=== PATIENT | male | born 1960 | race Caucasian/White ===

== ENCOUNTER 2019-06-04 06:00 | Outpatient (RCR) | payer BC, SELFPAY | END 2019-06-23 00:01 | LOC: ONCMED 06:00 | PROVIDERS: Family Provider Family Medicine; Visit Provider Internal Medicine Medical Oncology | DX: C34.11 Malignant neoplasm of upper lobe, right bronchus or lung (principal); C79.51 Secondary malignant neoplasm of bone; J44.9 Chronic obstructive pulmonary disease, unspecified; E78.5 Hyperlipidemia, unspecified; Z79.899 Other long term (current) drug therapy ==

== ENCOUNTER 2019-07-06 05:58 | Outpatient (RCR) | payer BC, SELFPAY | END 2019-07-24 23:59 | disposition home or self-care (01) | LOC: ONCMED 05:58 | PROVIDERS: Family Provider Family Medicine; Visit Provider Internal Medicine Medical Oncology | DX: Z76.89 Persons encountering health services in other specified circumstances (principal) ==

== ENCOUNTER 2019-08-06 06:08 | Outpatient (RCR) | payer BC, SELFPAY | END 2019-08-22 23:59 | disposition home or self-care (01) | LOC: ONCMED 06:08 | PROVIDERS: Family Provider Family Medicine; Visit Provider Internal Medicine Medical Oncology | DX: Z45.2 Encounter for adjustment and management of vascular access device (principal) | CPT/HCPCS: 96523 ==

== ENCOUNTER 2019-09-21 06:37 | Outpatient (RCR) | payer BC, SELFPAY ==
[2019-09-21] MEDS: denosumab 120 mg SDV SUBCUT (14:25)
--- NOTE | 2019-09-25 08:11 | ONC FU_ITS ---
Dr. Castle Patient Follow-Up Note Patient: Gabriel Yanez Unit #: [id number]: [id number] Dicatated By: Gil Castle M.D.Date of Visit:Sep 21, 2019 Onc Med Follow-up/Prog Note Chief Complaint: Lung cancer. 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 His disease was stage IA (T1a, N), M0) at initial diagnosis in 2012, but with subsequent progression to stage IV ( M1b). He had presented with a spontaneous pneumothorax and a right upper lobe nodule in 2012. On 02/28/2013 because of persistent air leak he required VATS with a bi-segmentectomy of the right upper lobe, resection of right upper lobe ruptured bleb, and pleurodesis. No thoracic lymphadenectomy was performed. His surgical pathology showed a 1.5 cm minimally invasive adenocarcinoma with negative margins. Clinically there was no distant or regional metastatic disease reported. Thus, his disease was stage IA (T1a, N0, M0), and he was followed expectantly. His surveillance CT of the chest on 09/01/2014 showed post operative changes in the right upper lobe with stable area of nodular thickening and scarring. He was first seen by Dr. Perez on 01/10/2015. His restaging CT of the chest on 03/22/2015 was unchanged. Further restaging CT on 09/06/2015 showed scarring, but no evidence of metastatic disease. He continued on observation/expectant management. He has underlying COPD and dyslipidemia. He stopped smoking in the . In the last 2-3 years he had chronic shortness of breath, oxygen dependence at night. He had screening colonoscopy on 04/17/2012. The only finding was a hyperplastic polyp. INTERIM HISTORY: His surveillance CT scans as of March 2017 showed no evidence of recurrence. The latter study did show increased nodular thickening within the posterior right lateral pleura which was noted to be mildly increased from previous studies, measuring up to 9.[address] on 10/02/2017 showed pronounced volume loss on the right side with pleural thickening and scarring. There was noted to be a small focus of trapped lung low on the right side. There was essentially no change compared to the March [address] study[address] chest [address] on 04/08/2018 showed pleural-based density in the posterior upper right chest measuring 20 x 11 mm compared to 8 x 12 mm on the study from September 2017. A pleural-based density in the medial mid right chest increased to 17 x 16 mm compared to 8 x 9 mm on the previous study. A pleural-based density on the medial lower right chest also appeared more prominent. The findings were felt to be suspicious for pleural-based metastatic disease. He had further evaluation with restaging PET/CT on 04/28/2018. There was noted to be pronounced activity throughout the right hemithorax, felt to be associated with inflammation in the pleura related to the pleurodesis or VATS. It was noted to have calcifications associated with it. A 2 cm diameter pleural based lesion was thought to possibly represent early tumor involvement. An abnormality in a left anterior rib was felt to be suspicious for rib fracture. A focus involving a posterior rib on the right side was thought be consistent with early bone metastasis or inflammation or fracture. There were lesions noted in the pelvic bone and right femur which were felt to be consistent with metastatic bone lesions. MRI of the brain on 05/06/2018 showed rather pronounced deep white matter disease felt to possibly represent a demyelinating process versus pronounced small vessel ischemic changes. It did not appear to be due to metastatic disease. Bone scan on 05/08/2018 showed multiple areas of abnormal uptake involving the left hemipelvis, right femur, multiple ribs, thoracic spine, and likely a small focus in the cervical spine. On 05/22/[address] directed needle biopsy of the lesion in the left ilium. Pathology was consistent with metastatic adenocarcinoma. The tumor cells were positive for CK7, TTF-1, and Napsin A. He was seen for a follow-up visit on 05/29/2018. At that point he did appear to be having significant bone pain associated with the metastatic involvement. As it did include weightbearing areas, I opted to refer him for palliative radiation. In the meantime, I also requested additional pathologic studies, including a PD-L1 immunostain, which showed low PD-L1 expression at 5%. In addition, the tumor cells were tested and found to be negative for EGFR mutations and for the ALK and ROS1 gene rearrangements. He was seen here on 07/02/2018 to initiate chemotherapy with pembrolizumab in combination with carboplatin and pemetrexed. He had multiple new complaints including low-grade fever, increased shortness of breath, and new pain and swelling in both legs. He was found to have extensive deep vein thrombosis in both legs and very extensive pulmonary emboli bilaterally. He began anticoagulation with Lovenox, and he was observed overnight in the hospital. He then returned on 07/08/2018 to begin cycle 1 of carboplatin/pemetrexed in combination with pembrolizumab. He also started denosumab injections for the metastatic bone involvement. He tolerated the chemotherapy well, and he was able to continue with cycle 2 of carboplatin/Alimta/pembrolizumab on 07/29/2018. During that time his anticoagulation was transitioned to a apixaban. He continued to tolerate the chemotherapy with acceptable toxicity. He proceeded with cycle 3 on 08/19/2018 and was cycle 4 on 09/08/2018. On 09/19/2018 he was admitted to [facility] with shortness of breath and hypoxia. His clinical evaluation was consistent with pneumonitis associated with his immunotherapy. He was given high-dose steroid therapy. His clinical course was complicated by left pneumothorax with persistent air leak. He was eventually discharged home on 10/08/2018 with the chest tube in place. He is on 30 mg of prednisone daily. Just prior to discharge, he also was found to have Clostridium difficile colitis, for which he began treatment with oral vancomycin. During follow-up he continued to have severe shortness of breath and limited activity tolerance. He attempted to remove his chest to begin last week, but it had to be reinserted within a couple of hours. His restaging CT scans on 11/13/2018 showed no evidence of recurrent pulmonary embolus. There was a persistent small residual filling defect in the posterior basal segment right lower lobe pulmonary artery branch. There was improvement in the previously noted right upper, middle, and lower lobe pneumonia compared to the 08/27/2018 study. There was evidence of left hemithorax talc pleurodesis and placement of lower third left hemithorax anterior pleural space pigtail catheter. A right hilar lymph node appears stable. There is no evidence of other significant lymphadenopathy. A T5 vertebral body metastatic lesion appeared stable. The abdomen and pelvis shows stable appearance of a mixed density metastatic lesion in the left ilium. There was subcutaneous soft tissue edema noted in the left flank. There were no other significant findings. I had seen him for a follow-up visit on 11/13/2018. He was showing some improvement in his clinical status. At that point he continued monthly denosumab injections for the metastatic bone involvement, but in the absence of any evidence of disease progression, I opted to keep his chemotherapy on hold. In the meantime, he continued follow-up with Dr. Orlando and he was started on diuretic therapy for cor pulmonale. He continued to have a high oxygen requirement. Restaging CT scans from 06/02/2019 showed continued pleural scarring and thickening with volume loss on the right side. There was also pronounced pleural scarring and thickening involving the left lung, and there was thickening of the soft tissues between the ribs and the tip of the scapula on the left side that appeared very worrisome for tumor involvement in the soft tissues. There was pronounced soft tissue thickening and abnormal enhancement of the tissue extending along the left lateral chest wall, possibly related to the previous procedures. Metastatic disease, though, was not excluded. There appear to be a couple of small cysts in the liver. There was some inhomogeneity involving the right finger and the left iliac wing, appearance of which was not significantly changed from the previous PET/CT. With those findings, he continued denosumab injections for the metastatic bone involvement, but he otherwise continued observation/symptomatic management for the lung cancer. Restaging PET/CT on 09/09/2019 showed pronounced increased activity in the pleural spaces of both hemithoraces, unclear as to whether it was due post therapeutic changes or to new spread of tumor. A focus of activity in the rectum was noted to be fairly intense, but unchanged compared to the February study. The bony metastases were noted to have markedly improved. He is seen for a scheduled visit. He has been feeling pretty good. He has limited activity tolerance, but he is able to do some light work. ECOG score is 1. His appetite is good. He has not had fever. He has some night sweating. His breathing has been OK on oxygen. He has a little bit of cough every day. He has not been having chest pain. He has no GI or complaints. He has been having pain in his shoulders. He has not been having back or hip pain. He has no headache or dizziness. He has no focal neurologic symptoms. Medications: Calcium 600/Vitamin D3 1 Tablet (of 600-800 mg - Units) Oral b.i.d., Citalopram Hydrobromide 1 Tablet (of 20 mg) Oral daily, Clindamycin HCl 1 Capsule (of 150 mg) Oral four times a day for 10 days, Desmopressin Acetate 1 spray(s) (of 1.5 mg/mL) Solution Nasal b.i.d., Lasix 1 Tablet (of 40 mg) Oral daily PRN, LORazepam 0.5 - 1 Tablet (of 1 mg) Oral t.i.d. PRN, Lovenox 120 mg (of 300 mg/3ml) Injection daily, Morphine Sulfate 1 Tablet (of 15 mg) Oral q 2 hours PRN, Morphine Sulfate ER 1 Tablet (of 15 mg) Tablet, controlled release Oral q 12 hours, oxygen 3 L Aerosol at bedtime, Potassium 1 (99 mg) Tablet Oral PRN, Prochlorperazine Maleate 1 Tablet (of 10 mg) Oral q 4 hours PRN, Rosuvastatin Calcium 1 (10 mg) Tablet Oral daily, Thermotabs 1 Tablet Oral b.i.d. Allergies: No Known Allergies. Review of Systems: Constitutional - His energy level is better. His appetite is good and weight is stable. No fever or chills. He has some night sweating. ECOG score is 1, ENMT - He has a little sinus drainage. His gums have been a little sore. No sore throat or difficulty swallowing, Hematologic/Lymphatic - No abnormal bruising or bleeding, Respiratory - His breathing has been OK on oxygen. He has a little bit of cough. No pleuritic pain or hemoptysis, Cardiovascular - No angina pain. No palpitations, Gastrointestinal - No nausea or vomiting. No heartburn or acid reflux. No diarrhea or constipation. No blood in the stool or black stools, Genitourinary (M) - No dysuria or hematuria. No urinary frequency. No urgency or incontinence, Musculoskeletal - He is having pain in his shoulders, Integumentary - No skin complications, Neurologic - No headache or dizziness. No numbness/paresthesias or other focal neurologic symptoms, Psychiatric - No anxiety or depression. No insomnia. Vital Signs: Performed on Sep 21, 2019 13:25 Height - 71.00 in Weight - 190.2 lbs (HIGH) BSA - 2.06 sq.m BMI - 26.53 Temperature - 97.6 F (LOW) Pulse - 64 /min Respiration - 18 /min BP - 131/73 mm(hg) O2 Sat - 100 % Pain - 0 Physical Examination: Constitutional - He appears somewhat weak generally, Eyes - Sclerae nonicteric. Conjunctivae clear, ENMT - No lesions noted in the oral cavity, Hematologic/Lymphatic - No cervical, clavicular, or axillary adenopathy, Respiratory - Lungs show slgihtly coarse breath sounds. There is pretty good air movement bilaterally, Cardiovascular - Heart rhythm is regular. There is no murmur, gallop, or rub noted, Abdomen - Soft. Liver and spleen are not enlarged. There is no abdominal mass or ascites noted and there is no inguinal adenopathy, Genitalia/Groin/Buttock (M) - Rectal exam shows no mass or other abnormality, Extremities - No edema, Integumentary - There is evidence of skin mottling on the trunk and lower extremities, Neurologic - No focal neurologic deficits noted. Lab/Imaging: Test performed on Jun 04, 2019 10:00 Sodium 138 mmol/L Potassium 4.4 mmol/L Chloride 101 mmol/L CO2 27 mmol/L Anion Gap 14.4 BUN 16 mg/dL Creatinine 0.7 mg/dL Cr Clearance (Est) 133.1400 mL/min eGFR 115.8 mL/min Glucose 108 mg/dl Calcium 8.9 mg/dL Protein, Total 5.9 g/dL Albumin 4.6 g/dL Globulin 1.3 gm/dL Bilirubin, Total 0.7 mg/dL ALT (SGPT) 31 U/L AST (SGOT) 25 U/L Alkaline Phosphatase 56 U/L WBC 3.3 10 3/uL RBC 4.43 10 6/uL HGB 13.7 g/dL HCT 41.8 % MCV 94.4 fl MCH 30.9 pg MCHC 32.8 g/dl RDW 11.9 % Platelet Count 201 10 3/cmm MPV 9.4 fl Neutrophils 1.8 10 3/uL Lymphocytes 1.1 10 3/uL Monocytes 0.4 10 3/uL Eosinophils 0.0 10 3/uL Basophils 0.0 10 3/uL Neutrophil % 52.9 % Lymphocyte % 33.8 % Monocyte % 11.5 % Eosinophil % 1.2 % Basophils % 0.3 % Impression: 1. Patient with minimally invasive adenocarcinoma (bronchoalveolar carcinoma) involving the upper lobe of the right lung. His disease was stage IA (T1a, N0, M0) at initial diagnosis in 2012. He had subsequent progression to stage IV disease (M1b) with evidence of recurrence in the right lung and with multiple sites of metastatic bone involvement, including biopsy-proven metastatic adenocarcinoma involving the left ilium. 2. He also has suspected diabetes insipidus. 3. His initial treatment included VATS with a bi-segmentectomy of the right upper lobe. The procedure also included resection of right upper lobe ruptured bleb and pleurodesis. His other medical illnesses include: 4. COPD. 5. Hyperlipidemia. He had significant pain in weightbearing areas associated with his metastatic bone involvement. He initially started on treatment with denosumab, and he was then referred for palliative radiation, which he completed. On further pathologic analysis his tumor was found to be negative for EGFR mutations and for the ALK and ROS 1 gene rearrangements. A PD-L1 immunostain showed low expression at less than 5%. Given those findings, he was then scheduled to begin systemic therapy with carboplatin and pemetrexed chemotherapy in combination with pembrolizumab. He was seen here on 07/02/2018 to begin his 1st cycle of chemotherapy. He had multiple complaints including low-grade fever, increased shortness of breath, and new pain and swelling in both legs. His venous Doppler showed extensive deep vein thrombosis in both legs, and CT pulmonary angiogram showed extensive pulmonary emboli, including involvement of the left main pulmonary artery. He began anticoagulation with Lovenox, and he was able to return to begin chemotherapy and 07/08/2018. He tolerated the treatment without acute toxicity, and he continued with cycle 2 on 07/29/2017. During that time, he also transitioned his anticoagulation to a apixaban and he has continued monthly denosumab injections for the metastatic bone involvement. He continued to tolerate chemotherapy with acceptable toxicity, and he proceeded with cycle 3 on 08/19/2018 and with cycle 4 on 09/08/2018. On 09/19/2018 he was admitted to the hospital with shortness of breath and severe hypoxia. This appeared to be due to pneumonitis from his immunotherapy. He was given high-dose steroid therapy. His clinical course was then complicated by a left pneumothorax with persistent air leak and by Clostridium difficile colitis. During follow-up he has been showing some improvement in his clinical status with treatment for the Clostridium difficile and with the steroid therapy. He still has shortness of breath and very limited activity tolerance. His restaging CT scans show significant improvement in the appearance of the right lung. Initially he had been unable to tolerate removal of the chest tube on the left side, but eventually it was able to be successfully removed. He then continued denosumab injections for the metastatic bone involvement, but his chemotherapy remained on hold. He also continued followup Dr. Orlando, and he was started on diuretic therapy for cor pulmonale. His repeat CT scan in October 2018 did appear to show some evidence of response to the chemotherapy/immunotherapy regimen. During subsequent follow-up there was gradual improvement in his performance status, though he still had limited activity tolerance. There wrere significant residual abnormalities on his followup chest CT, but uncertain to what extent any of that may have reflected active tumor. By clinical evaluation he did not have obvious disease progression. His restaging PET/CT on 09/09/2019 showed significant uptake in the pleura bilaterally, but again with uncertainty as to whether it is due to post therapeutic changes versus disease progression. There was continued focus of uptake in the rectal area. The significance of that finding is uncertain, as he has no associated symptoms and no abnormal findings on rectal exam. His overall clinical status appears stable other than he has some new skin mottling, and I have no idea what may be causing that. Plan: He will be given denosumab 120 mg by subcutaneous injection for the metastatic bone involvement. He will be scheduled for a followup visit in 3 months. In the meantime, I will review the PET/CT with the radiologist. He will have further evaluation as indicated as indicated. Signed By: Gil Castle M.D. <<Signature on File>>
== END 2019-09-22 23:59 | disposition home or self-care (01) ==
LOC: ONCMED 06:37
PROVIDERS: Family Provider Family Medicine; Visit Provider Internal Medicine Medical Oncology
DX: C79.51 Secondary malignant neoplasm of bone (principal); C34.11 Malignant neoplasm of upper lobe, right bronchus or lung; J44.9 Chronic obstructive pulmonary disease, unspecified; E78.5 Hyperlipidemia, unspecified; Z99.81 Dependence on supplemental oxygen; Z79.01 Long term (current) use of anticoagulants; Z79.52 Long term (current) use of systemic steroids; Z79.899 Other long term (current) drug therapy; Z87.891 Personal history of nicotine dependence; Z86.711 Personal history of pulmonary embolism; Z86.718 Personal history of other venous thrombosis and embolism; Z90.2 Acquired absence of lung [part of]
CPT/HCPCS: 96372; 99214; J0897

== ENCOUNTER 2019-12-22 12:57 | Outpatient (CLI) | payer BC, SELFPAY ==
[2019-12-22] MEDS: denosumab 120 mg SDV SUBCUT (16:21)
--- NOTE | 2019-12-23 07:37 | ONC FU_ITS ---
Dr. Castle Patient Follow-Up Note Patient: Gabriel Yanez Unit #: [id number]: 1960 Dicatated By: Gil Castle M.D.Date of Visit:Dec 22, 2019 Onc Med Follow-up/Prog Note Chief Complaint: Lung cancer. 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 His disease was stage IA (T1a, N), M0) at initial diagnosis in 2012, but with subsequent progression to stage IV ( M1b). He had presented with a spontaneous pneumothorax and a right upper lobe nodule in 2012. On 02/28/2013 because of persistent air leak he required VATS with a bi-segmentectomy of the right upper lobe, resection of right upper lobe ruptured bleb, and pleurodesis. No thoracic lymphadenectomy was performed. His surgical pathology showed a 1.5 cm minimally invasive adenocarcinoma with negative margins. Clinically there was no distant or regional metastatic disease reported. Thus, his disease was stage IA (T1a, N0, M0), and he was followed expectantly. His surveillance CT of the chest on 09/01/2014 showed post operative changes in the right upper lobe with stable area of nodular thickening and scarring. He was first seen by Dr. Perez on 01/10/2015. His restaging CT of the chest on 03/22/2015 was unchanged. Further restaging CT on 09/06/2015 showed scarring, but no evidence of metastatic disease. He continued on observation/expectant management. He has underlying COPD and dyslipidemia. He stopped smoking in the . In the last 2-3 years he had chronic shortness of breath, oxygen dependence at night. He had screening colonoscopy on 04/17/2012. The only finding was a hyperplastic polyp. INTERIM HISTORY: His surveillance CT scans as of March 2017 showed no evidence of recurrence. The latter study did show increased nodular thickening within the posterior right lateral pleura which was noted to be mildly increased from previous studies, measuring up to 9.[address] on 10/02/2017 showed pronounced volume loss on the right side with pleural thickening and scarring. There was noted to be a small focus of trapped lung low on the right side. There was essentially no change compared to the March [address] study[address] on 04/08/2018 showed pleural-based density in the posterior upper right chest measuring 20 x 11 mm compared to 8 x 12 mm on the study from September 2017. A pleural-based density in the medial mid right chest increased to 17 x 16 mm compared to 8 x 9 mm on the previous study. A pleural-based density on the medial lower right chest also appeared more prominent. The findings were felt to be suspicious for pleural-based metastatic disease. He had further evaluation with restaging PET/CT on 04/28/2018. There was noted to be pronounced activity throughout the right hemithorax, felt to be associated with inflammation in the pleura related to the pleurodesis or VATS. It was noted to have calcifications associated with it. A 2 cm diameter pleural based lesion was thought to possibly represent early tumor involvement. An abnormality in a left anterior rib was felt to be suspicious for rib fracture. A focus involving a posterior rib on the right side was thought be consistent with early bone metastasis or inflammation or fracture. There were lesions noted in the pelvic bone and right femur which were felt to be consistent with metastatic bone lesions. MRI of the brain on 05/06/2018 showed rather pronounced deep white matter disease felt to possibly represent a demyelinating process versus pronounced small vessel ischemic changes. It did not appear to be due to metastatic disease. Bone scan on 05/08/2018 showed multiple areas of abnormal uptake involving the left hemipelvis, right femur, multiple ribs, thoracic spine, and likely a small focus in the cervical spine. On 05/22/[address] directed needle biopsy of the lesion in the left ilium. Pathology was consistent with metastatic adenocarcinoma. The tumor cells were positive for CK7, TTF-1, and Napsin A. He was seen for a follow-up visit on 05/29/2018. At that point he did appear to be having significant bone pain associated with the metastatic involvement. As it did include weightbearing areas, I opted to refer him for palliative radiation. In the meantime, I also requested additional pathologic studies, including a PD-L1 immunostain, which showed low PD-L1 expression at 5%. In addition, the tumor cells were tested and found to be negative for EGFR mutations and for the ALK and ROS1 gene rearrangements. He was seen here on 07/02/2018 to initiate chemotherapy with pembrolizumab in combination with carboplatin and pemetrexed. He had multiple new complaints including low-grade fever, increased shortness of breath, and new pain and swelling in both legs. He was found to have extensive deep vein thrombosis in both legs and very extensive pulmonary emboli bilaterally. He began anticoagulation with Lovenox, and he was observed overnight in the hospital. He then returned on 07/08/2018 to begin cycle 1 of carboplatin/pemetrexed in combination with pembrolizumab. He also started denosumab injections for the metastatic bone involvement. He tolerated the chemotherapy well, and he was able to continue with cycle 2 of carboplatin/Alimta/pembrolizumab on 07/29/2018. During that time his anticoagulation was transitioned to a apixaban. He continued to tolerate the chemotherapy with acceptable toxicity. He proceeded with cycle 3 on 08/19/2018 and was cycle 4 on 09/08/2018. On 09/19/2018 he was admitted to [facility] with shortness of breath and hypoxia. His clinical evaluation was consistent with pneumonitis associated with his immunotherapy. He was given high-dose steroid therapy. His clinical course was complicated by left pneumothorax with persistent air leak. He was eventually discharged home on 10/08/2018 with the chest tube in place. He is on 30 mg of prednisone daily. Just prior to discharge, he also was found to have Clostridium difficile colitis, for which he began treatment with oral vancomycin. During follow-up he continued to have severe shortness of breath and limited activity tolerance. He attempted to remove his chest to begin last week, but it had to be reinserted within a couple of hours. His restaging CT scans on 11/13/2018 showed no evidence of recurrent pulmonary embolus. There was a persistent small residual filling defect in the posterior basal segment right lower lobe pulmonary artery branch. There was improvement in the previously noted right upper, middle, and lower lobe pneumonia compared to the 08/27/2018 study. There was evidence of left hemithorax talc pleurodesis and placement of lower third left hemithorax anterior pleural space pigtail catheter. A right hilar lymph node appears stable. There is no evidence of other significant lymphadenopathy. A T5 vertebral body metastatic lesion appeared stable. The abdomen and pelvis shows stable appearance of a mixed density metastatic lesion in the left ilium. There was subcutaneous soft tissue edema noted in the left flank. There were no other significant findings. I had seen him for a follow-up visit on 11/13/2018. He was showing some improvement in his clinical status. At that point he continued monthly denosumab injections for the metastatic bone involvement, but in the absence of any evidence of disease progression, I opted to keep his chemotherapy on hold. In the meantime, he continued follow-up with Dr. Orlando and he was started on diuretic therapy for cor pulmonale. He continued to have a high oxygen requirement. Restaging CT scans from 06/02/2019 showed continued pleural scarring and thickening with volume loss on the right side. There was also pronounced pleural scarring and thickening involving the left lung, and there was thickening of the soft tissues between the ribs and the tip of the scapula on the left side that appeared very worrisome for tumor involvement in the soft tissues. There was pronounced soft tissue thickening and abnormal enhancement of the tissue extending along the left lateral chest wall, possibly related to the previous procedures. Metastatic disease, though, was not excluded. There appear to be a couple of small cysts in the liver. There was some inhomogeneity involving the right finger and the left iliac wing, appearance of which was not significantly changed from the previous PET/CT. With those findings, he continued denosumab injections for the metastatic bone involvement, but he otherwise continued observation/symptomatic management for the lung cancer. Restaging PET/CT on 09/09/2019 showed pronounced increased activity in the pleural spaces of both hemithoraces, unclear as to whether it was due post therapeutic changes or to new spread of tumor. A focus of activity in the rectum was noted to be fairly intense, but unchanged compared to the February study. The bony metastases were noted to have markedly improved. He continued treatment with denosumab at a 3-month interval. A restaging PET/CT on 12/15/2019 showed an area of increased metabolic activity along the left lateral chest wall just inferior to the scapula, very similar in appearance to the prior study. Bilateral talc pleurodesis changes were again noted, also similar to the prior study. A new FDG avid mass was noted within the left lateral limb of the adrenal gland measuring 1.5 cm, SUV 4.9, worrisome for metastatic disease. Also noted was a small lymph node within the aortocaval region in the mid abdomen at the L3 level with mild FDG activity, SUV 4.8, also suspicious for possible metastasis. Robust activity was again noted within the region of the lower rectum. He is seen for a scheduled visit. He has been feeling pretty good generally. He has been more active and able to work around the house, at least for 1/2-day. His ECOG score is 1. He has good appetite, and he has gained weight. He had a slight fever on one occasion. He sometimes has sweating at night. He does have shortness of breath, but his breathing is pretty good on oxygen. He does not complain of cough, and he has not been having chest pain. He has no GI or complaints. Lately has been having some pain in his neck and shoulders, and he also has noticed some restriction in his mobility. He does not complain of headache or dizziness. He occasionally has numbness in his right foot. He has no other focal neurologic symptoms. Medications: Citalopram Hydrobromide 1 Tablet (of 20 mg) Oral daily, Desmopressin Acetate 1 spray(s) (of 1.5 mg/mL) Solution Nasal b.i.d., Lasix 1 Tablet (of 40 mg) Oral daily PRN, Lovenox 120 mg (of 300 mg/3ml) Injection daily, Morphine Sulfate 1 Tablet (of 15 mg) Oral q 2 hours PRN, Morphine Sulfate ER 1 Tablet (of 15 mg) Tablet, controlled release Oral q 12 hours, oxygen 3 L Aerosol at bedtime, Potassium 1 (99 mg) Tablet Oral PRN, Rosuvastatin Calcium 1 (10 mg) Tablet Oral daily Allergies: No Known Allergies. Review of Systems: Constitutional - He has some fatigue. He is able to do work activities for about a half a day. Appetite is good. He has gained weight. He had a slight fever on just one occasion. He sometimes has night sweating. ECOG score is 1, ENMT - No sinus congestion/drainage. No mouth sores. No sore throat or difficulty swallowing, Hematologic/Lymphatic - No abnormal bruising or bleeding, Respiratory - His breathing has been pretty good with oxygen. No cough. No pleuritic pain or hemoptysis, Cardiovascular - No angina pain. No palpitations, Gastrointestinal - No nausea or vomiting. No heartburn or acid reflux. No diarrhea or constipation. No blood in the stool or black stools, Genitourinary (M) - No dysuria or hematuria. No urinary frequency. No urgency or incontinence, Musculoskeletal - He has been having pain in his neck and shoulders, and he has less range of motion, Integumentary - No skin rash, Neurologic - No headache or dizziness. He occasionally has numbness in his right foot. No other focal neurologic symptoms, Psychiatric - No anxiety or depression. No insomnia. Vital Signs: Performed on Dec 22, 2019 13:22 Height - 71.00 in Weight - 189.2 lbs (LOW) BSA - 2.06 sq.m BMI - 26.39 Temperature - 98.4 F Pulse - 63 /min Respiration - 18 /min BP - 129/74 mm(hg) O2 Sat - 100 % Pain - 0 Physical Examination: Constitutional - He looks pretty good generally, Eyes - Sclerae nonicteric. Conjunctivae clear, ENMT - No lesions noted in the oral cavity, Hematologic/Lymphatic - No cervical, clavicular, or axillary adenopathy, Respiratory - Lungs show good air movement with slgihtly coarse breath sounds, Cardiovascular - Heart rhythm is regular. There is no murmur, gallop, or rub noted, Abdomen - Soft. Liver and spleen are not enlarged. There is no abdominal mass or ascites noted and there is no inguinal adenopathy, Extremities - No edema, Integumentary - No skin eruption, Neurologic - No focal neurologic deficits noted. Lab/Imaging: Test performed on Dec 10, 2019 07:24 Glucose 110.0 mg/dL BUN 16.0 mg/dL Creatinine 1.0 mg/dL Cr Clearance (Est) 92.06 mL/min Sodium 136.2 mmol/L Potassium 4.3 mmol/L Chloride 100.1 mmol/L CO2 28.2 mmol/L Calcium 9.6 mg/dL Protein, Total 6.1 g/dL Albumin 4.1 g/dL Bilirubin, Total 1.5 mg/dL Alkaline Phosphatase 54.0 IU/L AST (SGOT) 13.0 IU/L ALT (SGPT) 10.0 IU/L WBC 4.6 10^9/L RBC 4.43 10^12/L HGB 13.7 g/dL HCT 40.5 % MCV 91.5 fl MCH 31.0 pg MCHC 33.9 g/dL RDW 13.0 % Platelet Count 213 10^9/L MPV 7.1 fL Neutrophils (Gran) 3.2 10^9/L Lymphocytes 1.1 10^9/L Monocytes 0.2 10^9/L Manual Lymphocytes 24.3 % Manual Monocytes 5.4 % Impression: 1. Patient with minimally invasive adenocarcinoma (bronchoalveolar carcinoma) involving the upper lobe of the right lung. His disease was stage IA (T1a, N0, M0) at initial diagnosis in 2012. He had subsequent progression to stage IV disease (M1b) with evidence of recurrence in the right lung and with multiple sites of metastatic bone involvement, including biopsy-proven metastatic adenocarcinoma involving the left ilium. 2. He also has suspected diabetes insipidus. 3. His initial treatment included VATS with a bi-segmentectomy of the right upper lobe. The procedure also included resection of right upper lobe ruptured bleb and pleurodesis. His other medical illnesses include: 4. COPD. 5. Hyperlipidemia. He had significant pain in weightbearing areas associated with his metastatic bone involvement. He initially started on treatment with denosumab, and he was then referred for palliative radiation, which he completed. On further pathologic analysis his tumor was found to be negative for EGFR mutations and for the ALK and ROS 1 gene rearrangements. A PD-L1 immunostain showed low expression at less than 5%. Given those findings, he was then scheduled to begin systemic therapy with carboplatin and pemetrexed chemotherapy in combination with pembrolizumab. He was seen here on 07/02/2018 to begin his 1st cycle of chemotherapy. He had multiple complaints including low-grade fever, increased shortness of breath, and new pain and swelling in both legs. His venous Doppler showed extensive deep vein thrombosis in both legs, and CT pulmonary angiogram showed extensive pulmonary emboli, including involvement of the left main pulmonary artery. He began anticoagulation with Lovenox, and he was able to return to begin chemotherapy and 07/08/2018. He tolerated the treatment without acute toxicity, and he continued with cycle 2 on 07/29/2017. During that time, he also transitioned his anticoagulation to a apixaban and he has continued monthly denosumab injections for the metastatic bone involvement. He continued to tolerate chemotherapy with acceptable toxicity, and he proceeded with cycle 3 on 08/19/2018 and with cycle 4 on 09/08/2018. On 09/19/2018 he was admitted to the hospital with shortness of breath and severe hypoxia. This appeared to be due to pneumonitis from his immunotherapy. He was given high-dose steroid therapy. His clinical course was then complicated by a left pneumothorax with persistent air leak and by Clostridium difficile colitis. During follow-up he has been showing some improvement in his clinical status with treatment for the Clostridium difficile and with the steroid therapy. He still has shortness of breath and very limited activity tolerance. His restaging CT scans show significant improvement in the appearance of the right lung. Initially he had been unable to tolerate removal of the chest tube on the left side, but eventually it was able to be successfully removed. He then continued denosumab injections for the metastatic bone involvement, but his chemotherapy remained on hold. He also continued followup Dr. Orladno, and he was started on diuretic therapy for cor pulmonale. His repeat CT scan in October 2018 did appear to show some evidence of response to the chemotherapy/immunotherapy regimen. During subsequent follow-up there was gradual improvement in his performance status, though he still had limited activity tolerance. There were significant residual abnormalities on his followup chest CT, but it was certain as to what extent any of that may have reflected active tumor. By clinical evaluation he did not have obvious disease progression. His restaging PET/CT on 09/09/2019 showed significant uptake in the pleura bilaterally, but again with uncertainty as to whether it was due to post therapeutic changes versus disease progression. There was continued focus of uptake in the rectal area. The significance of that finding also was uncertain, as he had no associated symptoms and no abnormal findings on rectal exam. At his follow-up visit on 09/21/2019 he appeared stable clinically, and he continued treatment with denosumab. He has since then showed further improvement in his clinical status, but his restaging PET/CT on 12/15/2019 showed 2 areas of possible disease progression, including a small left adrenal mass and a small periaortic lymph node, both with mild FDG activity. Activity was again noted in the rectal area, the significance of which remains uncertain. Plan: He will be given denosumab 120 mg by subcutaneous injection for the metastatic bone involvement. I reviewed the PET/CT findings and we discussed the clinical implications. Under the circumstances, I would favor continued observation, as the findings are still equivocal and his further treatment options will be limited. As such, we will plan a follow-up visit with restaging CT scans in 3 months. In the meantime, I think it will be acceptable now to transition his anticoagulation from Lovenox to apixaban. Signed By: Gil Castle M.D. <<Signature on File>>
== END 2019-12-22 12:58 | disposition home or self-care (01) ==
LOC: ONCMED 13:00
PROVIDERS: PCP Family Medicine; Visit Provider Internal Medicine Medical Oncology
DX: C79.51 Secondary malignant neoplasm of bone (principal); C34.11 Malignant neoplasm of upper lobe, right bronchus or lung; E27.9 Disorder of adrenal gland, unspecified; R93.3 Abnormal findings on diagnostic imaging of other parts of digestive tract; R93.89 Abnormal findings on diagnostic imaging of other specified body structures; J44.9 Chronic obstructive pulmonary disease, unspecified; E78.5 Hyperlipidemia, unspecified; Z90.2 Acquired absence of lung [part of]; Z79.899 Other long term (current) drug therapy; Z86.718 Personal history of other venous thrombosis and embolism; Z79.01 Long term (current) use of anticoagulants; Z86.711 Personal history of pulmonary embolism
CPT/HCPCS: 96372; 99214; J0897

== ENCOUNTER 2020-03-04 08:03 | Outpatient (CLI) | payer BC, SELFPAY ==
--- NOTE | 2020-03-05 10:19 | ONC FU_ITS ---
Dr. Castle Patient Follow-Up Note Patient: Gabriel Yanez Unit #: [id number]: [id number] Dicatated By: Gil Castle M.D.Date of Visit:Mar 04, 2020 Onc Med Follow-up/Prog Note Chief Complaint: Lung cancer. 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 His disease was stage IA (T1a, N), M0) at initial diagnosis in 2012, but with subsequent progression to stage IV ( M1b). He had presented with a spontaneous pneumothorax and a right upper lobe nodule in 2012. On 02/28/2013 because of persistent air leak he required VATS with a bi-segmentectomy of the right upper lobe, resection of right upper lobe ruptured bleb, and pleurodesis. No thoracic lymphadenectomy was performed. His surgical pathology showed a 1.5 cm minimally invasive adenocarcinoma with negative margins. Clinically there was no distant or regional metastatic disease reported. Thus, his disease was stage IA (T1a, N0, M0), and he was followed expectantly. His surveillance CT of the chest on 09/01/2014 showed post operative changes in the right upper lobe with stable area of nodular thickening and scarring. He was first seen by Dr. Perez on 01/10/2015. His restaging CT of the chest on 03/22/2015 was unchanged. Further restaging CT on 09/06/2015 showed scarring, but no evidence of metastatic disease. He continued on observation/expectant management. He has underlying COPD and dyslipidemia. He stopped smoking in the . In the last 2-3 years he had chronic shortness of breath, oxygen dependence at night. He had screening colonoscopy on 04/17/2012. The only finding was a hyperplastic polyp. INTERIM HISTORY: His surveillance CT scans as of March 2017 showed no evidence of recurrence. The latter study did show increased nodular thickening within the posterior right lateral pleura which was noted to be mildly increased from previous studies, measuring up to 9.[address] on 10/02/2017 showed pronounced volume loss on the right side with pleural thickening and scarring. There was noted to be a small focus of trapped lung low on the right side. There was essentially no change compared to the March [address] study[address] on 04/08/2018 showed pleural-based density in the posterior upper right chest measuring 20 x 11 mm compared to 8 x 12 mm on the study from September 2017. A pleural-based density in the medial mid right chest increased to 17 x 16 mm compared to 8 x 9 mm on the previous study. A pleural-based density on the medial lower right chest also appeared more prominent. The findings were felt to be suspicious for pleural-based metastatic disease. He had further evaluation with restaging PET/CT on 04/28/2018. There was noted to be pronounced activity throughout the right hemithorax, felt to be associated with inflammation in the pleura related to the pleurodesis or VATS. It was noted to have calcifications associated with it. A 2 cm diameter pleural based lesion was thought to possibly represent early tumor involvement. An abnormality in a left anterior rib was felt to be suspicious for rib fracture. A focus involving a posterior rib on the right side was thought be consistent with early bone metastasis or inflammation or fracture. There were lesions noted in the pelvic bone and right femur which were felt to be consistent with metastatic bone lesions. MRI of the brain on 05/06/2018 showed rather pronounced deep white matter disease felt to possibly represent a demyelinating process versus pronounced small vessel ischemic changes. It did not appear to be due to metastatic disease. Bone scan on 05/08/2018 showed multiple areas of abnormal uptake involving the left hemipelvis, right femur, multiple ribs, thoracic spine, and likely a small focus in the cervical spine. On 05/22/[address] directed needle biopsy of the lesion in the left ilium. Pathology was consistent with metastatic adenocarcinoma. The tumor cells were positive for CK7, TTF-1, and Napsin A. He was seen for a follow-up visit on 05/29/2018. At that point he did appear to be having significant bone pain associated with the metastatic involvement. As it did include weightbearing areas, I opted to refer him for palliative radiation. In the meantime, I also requested additional pathologic studies, including a PD-L1 immunostain, which showed low PD-L1 expression at 5%. In addition, the tumor cells were tested and found to be negative for EGFR mutations and for the ALK and ROS1 gene rearrangements. He was seen here on 07/02/2018 to initiate chemotherapy with pembrolizumab in combination with carboplatin and pemetrexed. He had multiple new complaints including low-grade fever, increased shortness of breath, and new pain and swelling in both legs. He was found to have extensive deep vein thrombosis in both legs and very extensive pulmonary emboli bilaterally. He began anticoagulation with Lovenox, and he was observed overnight in the hospital. He then returned on 07/08/2018 to begin cycle 1 of carboplatin/pemetrexed in combination with pembrolizumab. He also started denosumab injections for the metastatic bone involvement. He tolerated the chemotherapy well, and he was able to continue with cycle 2 of carboplatin/Alimta/pembrolizumab on 07/29/2018. During that time his anticoagulation was transitioned to a apixaban. He continued to tolerate the chemotherapy with acceptable toxicity. He proceeded with cycle 3 on 08/19/2018 and was cycle 4 on 09/08/2018. On 09/19/2018 he was admitted to [facility] with shortness of breath and hypoxia. His clinical evaluation was consistent with pneumonitis associated with his immunotherapy. He was given high-dose steroid therapy. His clinical course was complicated by left pneumothorax with persistent air leak. He was eventually discharged home on 10/08/2018 with the chest tube in place. He is on 30 mg of prednisone daily. Just prior to discharge, he also was found to have Clostridium difficile colitis, for which he began treatment with oral vancomycin. During follow-up he continued to have severe shortness of breath and limited activity tolerance. He attempted to remove his chest to begin last week, but it had to be reinserted within a couple of hours. His restaging CT scans on 11/13/2018 showed no evidence of recurrent pulmonary embolus. There was a persistent small residual filling defect in the posterior basal segment right lower lobe pulmonary artery branch. There was improvement in the previously noted right upper, middle, and lower lobe pneumonia compared to the 08/27/2018 study. There was evidence of left hemithorax talc pleurodesis and placement of lower third left hemithorax anterior pleural space pigtail catheter. A right hilar lymph node appears stable. There is no evidence of other significant lymphadenopathy. A T5 vertebral body metastatic lesion appeared stable. The abdomen and pelvis shows stable appearance of a mixed density metastatic lesion in the left ilium. There was subcutaneous soft tissue edema noted in the left flank. There were no other significant findings. I had seen him for a follow-up visit on 11/13/2018. He was showing some improvement in his clinical status. At that point he continued monthly denosumab injections for the metastatic bone involvement, but in the absence of any evidence of disease progression, I opted to keep his chemotherapy on hold. In the meantime, he continued follow-up with Dr. Orlando and he was started on diuretic therapy for cor pulmonale. He continued to have a high oxygen requirement. Restaging CT scans from 06/02/2019 showed continued pleural scarring and thickening with volume loss on the right side. There was also pronounced pleural scarring and thickening involving the left lung, and there was thickening of the soft tissues between the ribs and the tip of the scapula on the left side that appeared very worrisome for tumor involvement in the soft tissues. There was pronounced soft tissue thickening and abnormal enhancement of the tissue extending along the left lateral chest wall, possibly related to the previous procedures. Metastatic disease, though, was not excluded. There appear to be a couple of small cysts in the liver. There was some inhomogeneity involving the right finger and the left iliac wing, appearance of which was not significantly changed from the previous PET/CT. With those findings, he continued denosumab injections for the metastatic bone involvement, but he otherwise continued observation/symptomatic management for the lung cancer. Restaging PET/CT on 09/09/2019 showed pronounced increased activity in the pleural spaces of both hemithoraces, unclear as to whether it was due post therapeutic changes or to new spread of tumor. A focus of activity in the rectum was noted to be fairly intense, but unchanged compared to the February study. The bony metastases were noted to have markedly improved. He continued treatment with denosumab at a 3-month interval. A restaging PET/CT on 12/15/2019 showed an area of increased metabolic activity along the left lateral chest wall just inferior to the scapula, very similar in appearance to the prior study. Bilateral talc pleurodesis changes were again noted, also similar to the prior study. A new FDG avid mass was noted within the left lateral limb of the adrenal gland measuring 1.5 cm, SUV 4.9, worrisome for metastatic disease. Also noted was a small lymph node within the aortocaval region in the mid abdomen at the L3 level with mild FDG activity, SUV 4.8, also suspicious for possible metastasis. Robust activity was again noted within the region of the lower rectum. As of his follow-up visit on 12/22/2019 he appeared stable clinically, and we opted to continue with observation/expectant management. At that point I had transitioned his anticoagulation from Lovenox to apixaban. He is seen for an unplanned visit. On 02/28/2020 had presented to the [facility] emergency room with acute onset of weakness in the left arm and hand. He had some transient visual impairment and he also had some stumbling, but the main problem was with his left hand, particularly his fine motor skills. His brain MRI with and without contrast showed restricted diffusion along the central sulcus involving the frontal and parietal lobe and an area of restricted diffusion along the cortex of the right parietal lobe. Multiple small areas of restricted diffusion were noted within the right frontal lobe, bilateral parietal lobes, bilateral occipital lobes, and the bilateral cerebellum. 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 Also noted were enhancing nodules within the bilateral cerebellum, the largest measuring 7 x 4 mm, which were felt to be suggestive of metastatic disease. There was no associated edema. His anticoagulation was changed back to Lovenox, and he has symptoms improved with conservative management. He is still feeling good generally. He has pretty good energy, and he is able to do some light work. He has good appetite. He has not had fever. He sometimes has night sweating. He did have 1 episode in the hospital following his MRI in which he had nausea, diaphoresis and back pain, but those symptoms had subsequently resolved. His breathing generally has been good. He is now using oxygen only at night. He does not complain of cough and he has not been having chest pain. He has no other GI or complaints. He has no other joint or bone pain. He does not complain of headache. He is not been dizzy or off balance. He does have some neuropathy in his right foot, but that is not new. Medications: Citalopram Hydrobromide 1 Tablet (of 20 mg) Oral daily, Desmopressin Acetate 1 spray(s) (of 1.5 mg/mL) Solution Nasal b.i.d., Lasix 1 Tablet (of 40 mg) Oral daily PRN, Lovenox 120 mg (of 300 mg/3ml) Injection daily, Morphine Sulfate ER 1 Tablet (of 15 mg) Tablet, controlled release Oral q 12 hours, oxygen 3 L Aerosol at bedtime, Potassium 1 (99 mg) Tablet Oral PRN, Rosuvastatin Calcium 1 (10 mg) Tablet Oral daily Allergies: No Known Allergies. Review of Systems: Constitutional - He has been feeling good generally. His energy is pretty good. He is able to do light work around the house. His appetite is good, but his weight is down about 5 pounds from last visit. No fevers. He has night sweats. No hot flashes. ECOG score is 1, ENMT - He has sinus congestion/drainage. No mouth sores. No sore throat or difficulty swallowing, Hematologic/Lymphatic - He bruises easily, Respiratory - His breathing has been good. He is now using oxygen only at night. No cough. No pleuritic pain or hemoptysis, Cardiovascular - No angina pain. No palpitations, Gastrointestinal - He had one episode nausea with diaphoresis following his recent MRI. No vomiting. No heartburn or acid reflux. No diarrhea or constipation. No blood in the stool or black stools, Genitourinary (M) - No dysuria or hematuria. No urinary frequency. No urgency or incontinence, Musculoskeletal - No joint or bone pain, Integumentary - No skin complications, Neurologic - No headache or dizziness. He has neuropathy in his right foot. He reports than approximately 1 week ago he had an episode of left sided weakness with sensation changes, as well as some brief alteration in vision. He reports he went to the ER at [place] and was diagnosed with a stroke. He denies any residual effects today, Psychiatric - No anxiety or depression. No insomnia. Vital Signs: Performed on Mar 04, 2020 08:06 Height - 71.00 in Weight - 184.2 lbs (LOW) BSA - 2.04 sq.m BMI - 25.69 Temperature - 97.7 F (LOW) Pulse - 59 /min (LOW) Respiration - 16 /min BP - 138/79 mm(hg) O2 Sat - 96 % Pain - 0 Physical Examination: Constitutional - He looks pretty good generally, Eyes - Sclerae nonicteric. Conjunctivae clear, ENMT - No lesions noted in the oral cavity, Hematologic/Lymphatic - No cervical, clavicular, or axillary adenopathy, Respiratory - Lungs sound clear. He has pretty good air movement bilaterally, Cardiovascular - Heart rhythm is regular. There is no murmur, gallop, or rub noted, Abdomen - Soft. Liver and spleen are not enlarged. There is no abdominal mass or ascites noted and there is no inguinal adenopathy, Extremities - No edema, Neurologic - He has very slight dysmetria on the left. There is no apparent sensory or motor deficit. There is no postural instability. Impression: 1. Patient with minimally invasive adenocarcinoma (bronchoalveolar carcinoma) involving the upper lobe of the right lung. His disease was stage IA (T1a, N0, M0) at initial diagnosis in 2012. He had subsequent progression to stage IV disease (M1b) with evidence of recurrence in the right lung and with multiple sites of metastatic bone involvement, including biopsy-proven metastatic adenocarcinoma involving the left ilium. 2. He also has suspected diabetes insipidus. 3. His initial treatment included VATS with a bi-segmentectomy of the right upper lobe. The procedure also included resection of right upper lobe ruptured bleb and pleurodesis. His other medical illnesses include: 4. COPD. 5. Hyperlipidemia. He had significant pain in weightbearing areas associated with his metastatic bone involvement. He initially started on treatment with denosumab, and he was then referred for palliative radiation, which he completed. On further pathologic analysis his tumor was found to be negative for EGFR mutations and for the ALK and ROS 1 gene rearrangements. A PD-L1 immunostain showed low expression at less than 5%. Given those findings, he was then scheduled to begin systemic therapy with carboplatin and pemetrexed chemotherapy in combination with pembrolizumab. He was seen here on 07/02/2018 to begin his 1st cycle of chemotherapy. He had multiple complaints including low-grade fever, increased shortness of breath, and new pain and swelling in both legs. His venous Doppler showed extensive deep vein thrombosis in both legs, and CT pulmonary angiogram showed extensive pulmonary emboli, including involvement of the left main pulmonary artery. He began anticoagulation with Lovenox, and he was able to return to begin chemotherapy and 07/08/2018. He tolerated the treatment without acute toxicity, and he continued with cycle 2 on 07/29/2017. During that time, he also transitioned his anticoagulation to a apixaban and he has continued monthly denosumab injections for the metastatic bone involvement. He continued to tolerate chemotherapy with acceptable toxicity, and he proceeded with cycle 3 on 08/19/2018 and with cycle 4 on 09/08/2018. On 09/19/2018 he was admitted to the hospital with shortness of breath and severe hypoxia. This appeared to be due to pneumonitis from his immunotherapy. He was given high-dose steroid therapy. His clinical course was then complicated by a left pneumothorax with persistent air leak and by Clostridium difficile colitis. During follow-up he has been showing some improvement in his clinical status with treatment for the Clostridium difficile and with the steroid therapy. He still has shortness of breath and very limited activity tolerance. His restaging CT scans show significant improvement in the appearance of the right lung. Initially he had been unable to tolerate removal of the chest tube on the left side, but eventually it was able to be successfully removed. He then continued denosumab injections for the metastatic bone involvement, but his chemotherapy remained on hold. He also continued followup Dr. Orlando, and he was started on diuretic therapy for cor pulmonale. His repeat CT scan in October 2018 did appear to show some evidence of response to the chemotherapy/immunotherapy regimen. During subsequent follow-up there was gradual improvement in his performance status, though he still had limited activity tolerance. There were significant residual abnormalities on his followup chest CT, but it was certain as to what extent any of that may have reflected active tumor. By clinical evaluation he did not have obvious disease progression. His restaging PET/CT on 09/09/2019 showed significant uptake in the pleura bilaterally, but again with uncertainty as to whether it was due to post therapeutic changes versus disease progression. There was continued focus of uptake in the rectal area. The significance of that finding also was uncertain, as he had no associated symptoms and no abnormal findings on rectal exam. At his follow-up visit on 09/21/2019 he appeared stable clinically, and he continued treatment with denosumab. His restaging PET/CT on 12/15/2019 showed 2 areas of possible disease progression, including a small left adrenal mass and a small periaortic lymph node, both with mild FDG activity. Activity was again noted in the rectal area, the significance of which was uncertain. As his clinical status remained stable, he continued his same treatment other than I had opted at that point to transition his anticoagulation to apixaban. He comes in now after having recently developed acute onset of weakness in the left arm and hand. His head MRI showed multiple areas of infarct, consistent with embolic stroke. He restarted anticoagulation with Lovenox, and his neurologic symptoms have improved. The MRI, though, also showed small enhancing lesions in the bilateral cerebellum, appearance of which were felt to be more consistent with metastatic disease, though there was no associated edema. He also has had no associated neurologic symptoms or clinical findings, and at this point the significance of those lesions is uncertain. Plan: With recurrence of thromboembolic disease, he will continue anticoagulation with Lovenox. I also will proceed with his restaging CT scans of the chest, abdomen, and pelvis. I will plan a follow-up MRI at a 1-month interval. If there is evidence of progression of the cerebellar lesions, he will be referred for radiation. Signed By: Gil Castle M.D. <<Signature on File>>
== END 2020-03-04 08:04 | disposition home or self-care (01) ==
LOC: ONCMED 08:04
PROVIDERS: PCP Family Medicine; Visit Provider Internal Medicine Medical Oncology
DX: C34.11 Malignant neoplasm of upper lobe, right bronchus or lung (principal); C79.51 Secondary malignant neoplasm of bone; G93.9 Disorder of brain, unspecified; R90.89 Other abnormal findings on diagnostic imaging of central nervous system; Z86.73 Personal history of transient ischemic attack (TIA), and cerebral infarction without residual deficits; Z86.718 Personal history of other venous thrombosis and embolism; Z79.01 Long term (current) use of anticoagulants; J44.9 Chronic obstructive pulmonary disease, unspecified; E78.5 Hyperlipidemia, unspecified; Z90.2 Acquired absence of lung [part of]; Z92.3 Personal history of irradiation
CPT/HCPCS: 99214

== ENCOUNTER 2020-03-23 05:59 | Outpatient (CLI) | payer BC, SELFPAY ==
[2020-03-23] MEDS: denosumab 120 mg SDV SUBCUT (16:40)
--- NOTE | 2020-03-26 21:30 | ONC FU_ITS ---
Dr. Castle Patient Follow-Up Note Patient: Gabriel Yanez Unit #: [id number]: [id number] Dicatated By: Gil Castle M.D.Date of Visit:Mar 23, 2020 Onc Med Follow-up/Prog Note Chief Complaint: Lung cancer. 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 His disease was stage IA (T1a, N), M0) at initial diagnosis in 2012, but with subsequent progression to stage IV ( M1b). He had presented with a spontaneous pneumothorax and a right upper lobe nodule in 2012. On 02/28/2013 because of persistent air leak he required VATS with a bi-segmentectomy of the right upper lobe, resection of right upper lobe ruptured bleb, and pleurodesis. No thoracic lymphadenectomy was performed. His surgical pathology showed a 1.5 cm minimally invasive adenocarcinoma with negative margins. Clinically there was no distant or regional metastatic disease reported. Thus, his disease was stage IA (T1a, N0, M0), and he was followed expectantly. His surveillance CT of the chest on 09/01/2014 showed post operative changes in the right upper lobe with stable area of nodular thickening and scarring. He was first seen by Dr. Perez on 01/10/2015. His restaging CT of the chest on 03/22/2015 was unchanged. Further restaging CT on 09/06/2015 showed scarring, but no evidence of metastatic disease. He continued on observation/expectant management. He has underlying COPD and dyslipidemia. He stopped smoking in the . In the last 2-3 years he had chronic shortness of breath, oxygen dependence at night. He had screening colonoscopy on 04/17/2012. The only finding was a hyperplastic polyp. INTERIM HISTORY: His surveillance CT scans as of March 2017 showed no evidence of recurrence. The latter study did show increased nodular thickening within the posterior right lateral pleura which was noted to be mildly increased from previous studies, measuring up to 9.[address] on 10/02/2017 showed pronounced volume loss on the right side with pleural thickening and scarring. There was noted to be a small focus of trapped lung low on the right side. There was essentially no change compared to the March [address] study[address] on 04/08/2018 showed pleural-based density in the posterior upper right chest measuring 20 x 11 mm compared to 8 x 12 mm on the study from September 2017. A pleural-based density in the medial mid right chest increased to 17 x 16 mm compared to 8 x 9 mm on the previous study. A pleural-based density on the medial lower right chest also appeared more prominent. The findings were felt to be suspicious for pleural-based metastatic disease. He had further evaluation with restaging PET/CT on 04/28/2018. There was noted to be pronounced activity throughout the right hemithorax, felt to be associated with inflammation in the pleura related to the pleurodesis or VATS. It was noted to have calcifications associated with it. A 2 cm diameter pleural based lesion was thought to possibly represent early tumor involvement. An abnormality in a left anterior rib was felt to be suspicious for rib fracture. A focus involving a posterior rib on the right side was thought be consistent with early bone metastasis or inflammation or fracture. There were lesions noted in the pelvic bone and right femur which were felt to be consistent with metastatic bone lesions. MRI of the brain on 05/06/2018 showed rather pronounced deep white matter disease felt to possibly represent a demyelinating process versus pronounced small vessel ischemic changes. It did not appear to be due to metastatic disease. Bone scan on 05/08/2018 showed multiple areas of abnormal uptake involving the left hemipelvis, right femur, multiple ribs, thoracic spine, and likely a small focus in the cervical spine. On 05/22/[address] directed needle biopsy of the lesion in the left ilium. Pathology was consistent with metastatic adenocarcinoma. The tumor cells were positive for CK7, TTF-1, and Napsin A. He was seen for a follow-up visit on 05/29/2018. At that point he did appear to be having significant bone pain associated with the metastatic involvement. As it did include weightbearing areas, I opted to refer him for palliative radiation. In the meantime, I also requested additional pathologic studies, including a PD-L1 immunostain, which showed low PD-L1 expression at 5%. In addition, the tumor cells were tested and found to be negative for EGFR mutations and for the ALK and ROS1 gene rearrangements. He was seen here on 07/02/2018 to initiate chemotherapy with pembrolizumab in combination with carboplatin and pemetrexed. He had multiple new complaints including low-grade fever, increased shortness of breath, and new pain and swelling in both legs. He was found to have extensive deep vein thrombosis in both legs and very extensive pulmonary emboli bilaterally. He began anticoagulation with Lovenox, and he was observed overnight in the hospital. He then returned on 07/08/2018 to begin cycle 1 of carboplatin/pemetrexed in combination with pembrolizumab. He also started denosumab injections for the metastatic bone involvement. He tolerated the chemotherapy well, and he was able to continue with cycle 2 of carboplatin/Alimta/pembrolizumab on 07/29/2018. During that time his anticoagulation was transitioned to a apixaban. He continued to tolerate the chemotherapy with acceptable toxicity. He proceeded with cycle 3 on 08/19/2018 and was cycle 4 on 09/08/2018. On 09/19/2018 he was admitted to [facility] with shortness of breath and hypoxia. His clinical evaluation was consistent with pneumonitis associated with his immunotherapy. He was given high-dose steroid therapy. His clinical course was complicated by left pneumothorax with persistent air leak. He was eventually discharged home on 10/08/2018 with the chest tube in place. He is on 30 mg of prednisone daily. Just prior to discharge, he also was found to have Clostridium difficile colitis, for which he began treatment with oral vancomycin. During follow-up he continued to have severe shortness of breath and limited activity tolerance. He attempted to remove his chest to begin last week, but it had to be reinserted within a couple of hours. His restaging CT scans on 11/13/2018 showed no evidence of recurrent pulmonary embolus. There was a persistent small residual filling defect in the posterior basal segment right lower lobe pulmonary artery branch. There was improvement in the previously noted right upper, middle, and lower lobe pneumonia compared to the 08/27/2018 study. There was evidence of left hemithorax talc pleurodesis and placement of lower third left hemithorax anterior pleural space pigtail catheter. A right hilar lymph node appears stable. There is no evidence of other significant lymphadenopathy. A T5 vertebral body metastatic lesion appeared stable. The abdomen and pelvis shows stable appearance of a mixed density metastatic lesion in the left ilium. There was subcutaneous soft tissue edema noted in the left flank. There were no other significant findings. I had seen him for a follow-up visit on 11/13/2018. He was showing some improvement in his clinical status. At that point he continued monthly denosumab injections for the metastatic bone involvement, but in the absence of any evidence of disease progression, I opted to keep his chemotherapy on hold. In the meantime, he continued follow-up with Dr. Orlando and he was started on diuretic therapy for cor pulmonale. He continued to have a high oxygen requirement. Restaging CT scans from 06/02/2019 showed continued pleural scarring and thickening with volume loss on the right side. There was also pronounced pleural scarring and thickening involving the left lung, and there was thickening of the soft tissues between the ribs and the tip of the scapula on the left side that appeared very worrisome for tumor involvement in the soft tissues. There was pronounced soft tissue thickening and abnormal enhancement of the tissue extending along the left lateral chest wall, possibly related to the previous procedures. Metastatic disease, though, was not excluded. There appear to be a couple of small cysts in the liver. There was some inhomogeneity involving the right finger and the left iliac wing, appearance of which was not significantly changed from the previous PET/CT. With those findings, he continued denosumab injections for the metastatic bone involvement, but he otherwise continued observation/symptomatic management for the lung cancer. Restaging PET/CT on 09/09/2019 showed pronounced increased activity in the pleural spaces of both hemithoraces, unclear as to whether it was due post therapeutic changes or to new spread of tumor. A focus of activity in the rectum was noted to be fairly intense, but unchanged compared to the February study. The bony metastases were noted to have markedly improved. He continued treatment with denosumab at a 3-month interval. A restaging PET/CT on 12/15/2019 showed an area of increased metabolic activity along the left lateral chest wall just inferior to the scapula, very similar in appearance to the prior study. Bilateral talc pleurodesis changes were again noted, also similar to the prior study. A new FDG avid mass was noted within the left lateral limb of the adrenal gland measuring 1.5 cm, SUV 4.9, worrisome for metastatic disease. Also noted was a small lymph node within the aortocaval region in the mid abdomen at the L3 level with mild FDG activity, SUV 4.8, also suspicious for possible metastasis. Robust activity was again noted within the region of the lower rectum. As of his follow-up visit on 12/22/2019 he appeared stable clinically, and we opted to continue with observation/expectant management. At that point I had transitioned his anticoagulation from Lovenox to apixaban. On 02/28/2020 he had presented to the [facility] emergency room with acute onset of weakness in the left arm and hand. He had some transient visual impairment and he also had some stumbling, but the main problem was with his left hand, particularly his fine motor skills. His brain MRI with and without contrast showed restricted diffusion along the central sulcus involving the frontal and parietal lobe and an area of restricted diffusion along the cortex of the right parietal lobe. Multiple small areas of restricted diffusion were noted within the right frontal lobe, bilateral parietal lobes, bilateral occipital lobes, and the bilateral cerebellum. 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 Also noted were enhancing nodules within the bilateral cerebellum, the largest measuring 7 x 4 mm, which were felt to be suggestive of metastatic disease. There was no associated edema. His anticoagulation was changed back to Lovenox, and his symptoms improved with conservative management. I had seen him for a follow-up visit on 03/04/2020. At that point his symptoms had not completely resolved, but they were definitely improving. I was able to review the MRI disc with 1 of the radiologist. One lesion in the lateral left cerebellar hemisphere did appear more prominent and it appeared more suspicious for a metastatic lesion. The other cerebellar lesions were smaller and were felt to be indeterminate. Restaging CT scans of the chest, abdomen, and pelvis on 03/08/2020 showed no change in the pleural calcification versus pleurodesis and there was unchanged sclerosis in the left hilum and left initial tuberosity. An aortocaval lymph node was noted to have decreased in size. However, there was further increase in the size of the left adrenal mass to 3.5 x 2.6 cm compared to 14 mm on the previous study. A 5 mm low-density focus in the right lobe of the liver appeared stable. He is seen for a scheduled visit. He is feeling pretty good now. He has continued anticoagulation with Lovenox, and he has had complete resolution of his neurologic symptoms. He has pretty good energy. He has been doing light work. ECOG score is 1. He has good appetite. He has not had fever. He had been having occasional hot flashes, but he has not had any lately. His breathing has been pretty good. He is using oxygen just at night. He does not complain of cough and he has not been having chest pain. He has no GI or complaints. He does not complain of headache or dizziness, and he has no focal neurologic symptoms. Medications: Citalopram Hydrobromide 1 Tablet (of 20 mg) Oral daily, Desmopressin Acetate 1 spray(s) (of 1.5 mg/mL) Solution Nasal b.i.d., Lasix 1 Tablet (of 40 mg) Oral daily PRN, Lovenox 120 mg (of 300 mg/3ml) Injection daily, Morphine Sulfate ER 1 Tablet (of 15 mg) Tablet, controlled release Oral q 12 hours, oxygen 3 L Aerosol at bedtime, Potassium 1 (99 mg) Tablet Oral PRN, Rosuvastatin Calcium 1 (10 mg) Tablet Oral daily Allergies: No Known Allergies. Review of Systems: Constitutional - He has been feeling pretty good. His energy is good. He is able to do light work at home. His appetite is good and weight is stable. No fevers. He has occasional night sweats but they have overall improved. ECOG score is 1, ENMT - He has sinus congestion/drainage. No mouth sores. No sore throat or difficulty swallowing, Hematologic/Lymphatic - No abnormal bruising or bleeding, Respiratory - No shortness of breath. No cough. No pleuritic pain or hemoptysis. He is wearing oxygen at night, Cardiovascular - No angina pain. No palpitations, Gastrointestinal - No nausea or vomiting. No heartburn or acid reflux. No diarrhea or constipation. No blood in the stool or black stools, Genitourinary (M) - No dysuria or hematuria. No urinary frequency. No urgency or incontinence, Musculoskeletal - No joint or bone pain, Integumentary - No skin complications, Neurologic - No headaches or dizziness. No numbness or tingling. No other focal neurologic symptoms. He denies any residual effects from the CVA that occurred last month, Psychiatric - No anxiety or depression. No insomnia. Vital Signs: Blood pressure 116/66, pulse 66, respirations 16, temp 97.7 degrees, oxygen saturation 96%. Weight is 184 pounds. Physical Examination: Constitutional - He looks pretty good generally, Eyes - Sclerae nonicteric. Conjunctivae clear, ENMT - No lesions noted in the oral cavity, Hematologic/Lymphatic - No cervical, clavicular, or axillary adenopathy, Respiratory - Lungs sound clear. He has pretty good air movement bilaterally, though it is slightly diminished on the right, Cardiovascular - Heart rhythm is regular. There is no murmur, gallop, or rub noted, Abdomen - Soft. Liver and spleen are not enlarged. There is no abdominal mass or ascites noted and there is no inguinal adenopathy, Extremities - No edema, Neurologic - He does not appear to have any residual neurologic deficit. Impression: 1. Patient with minimally invasive adenocarcinoma (bronchoalveolar carcinoma) involving the upper lobe of the right lung. His disease was stage IA (T1a, N0, M0) at initial diagnosis in 2012. He had subsequent progression to stage IV disease (M1b) with evidence of recurrence in the right lung and with multiple sites of metastatic bone involvement, including biopsy-proven metastatic adenocarcinoma involving the left ilium. 2. He also has suspected diabetes insipidus. 3. His initial treatment included VATS with a bi-segmentectomy of the right upper lobe. The procedure also included resection of right upper lobe ruptured bleb and pleurodesis. His other medical illnesses include: 4. COPD. 5. Hyperlipidemia. He had significant pain in weightbearing areas associated with his metastatic bone involvement. He initially started on treatment with denosumab, and he was then referred for palliative radiation, which he completed. On further pathologic analysis his tumor was found to be negative for EGFR mutations and for the ALK and ROS 1 gene rearrangements. A PD-L1 immunostain showed low expression at less than 5%. Given those findings, he was then scheduled to begin systemic therapy with carboplatin and pemetrexed chemotherapy in combination with pembrolizumab. He was seen here on 07/02/2018 to begin his 1st cycle of chemotherapy. He had multiple complaints including low-grade fever, increased shortness of breath, and new pain and swelling in both legs. His venous Doppler showed extensive deep vein thrombosis in both legs, and CT pulmonary angiogram showed extensive pulmonary emboli, including involvement of the left main pulmonary artery. He began anticoagulation with Lovenox, and he was able to return to begin chemotherapy and 07/08/2018. He tolerated the treatment without acute toxicity, and he continued with cycle 2 on 07/29/2017. During that time, he also transitioned his anticoagulation to a apixaban and he has continued monthly denosumab injections for the metastatic bone involvement. He continued to tolerate chemotherapy with acceptable toxicity, and he proceeded with cycle 3 on 08/19/2018 and with cycle 4 on 09/08/2018. On 09/19/2018 he was admitted to the hospital with shortness of breath and severe hypoxia. This appeared to be due to pneumonitis from his immunotherapy. He was given high-dose steroid therapy. His clinical course was then complicated by a left pneumothorax with persistent air leak and by Clostridium difficile colitis. During follow-up he has been showing some improvement in his clinical status with treatment for the Clostridium difficile and with the steroid therapy. He still has shortness of breath and very limited activity tolerance. His restaging CT scans show significant improvement in the appearance of the right lung. Initially he had been unable to tolerate removal of the chest tube on the left side, but eventually it was able to be successfully removed. He then continued denosumab injections for the metastatic bone involvement, but his chemotherapy remained on hold. He also continued followup Dr. Orlando, and he was started on diuretic therapy for cor pulmonale. His repeat CT scan in October 2018 did appear to show some evidence of response to the chemotherapy/immunotherapy regimen. During subsequent follow-up there was gradual improvement in his performance status, though he still had limited activity tolerance. There were significant residual abnormalities on his followup chest CT, but it was certain as to what extent any of that may have reflected active tumor. By clinical evaluation he did not have obvious disease progression. His restaging PET/CT on 09/09/2019 showed significant uptake in the pleura bilaterally, but again with uncertainty as to whether it was due to post therapeutic changes versus disease progression. There was continued focus of uptake in the rectal area. The significance of that finding also was uncertain, as he had no associated symptoms and no abnormal findings on rectal exam. At his follow-up visit on 09/21/2019 he appeared stable clinically, and he continued treatment with denosumab. His restaging PET/CT on 12/15/2019 showed 2 areas of possible disease progression, including a small left adrenal mass and a small periaortic lymph node, both with mild FDG activity. Activity was again noted in the rectal area, the significance of which was uncertain. As his clinical status remained stable, he continued his same treatment other than I had opted at that point to transition his anticoagulation to apixaban. On 02/28/2020 he had developed acute onset of weakness in the left arm and hand. His head MRI showed multiple areas of infarct, consistent with embolic stroke. He restarted anticoagulation with Lovenox, and his neurologic symptoms improved. His MRI also showed small enhancing lesions in the bilateral cerebellum, appearance of which were felt to be more consistent with metastatic disease, though there was no associated edema. On review of the MRI disc with 1 of the radiologist, a lesion in the lateral left cerebellar hemisphere did appear more prominent and more suspicious for a metastatic lesion. The others were smaller and appear to be nonspecific. His restaging CT scans of the chest, abdomen, and pelvis did show a significant increase in a left adrenal mass, consistent with progressive metastatic disease. There was no other evidence of disease progression. Since his last visit there has been further improvement in his clinical status. Plan: He is due for his scheduled dose of denosumab 120 mg by subcutaneous injection, and that will be administered today. He is scheduled to have a repeat brain MRI next week and he will be seen by the radiation oncologist if there is evidence of metastatic involvement in the brain. At some point the left adrenal lesion also will need to be addressed. If it is the only other site of metastatic disease, it may be best to also treat that with radiation, as options for further systemic therapy will be limited. Signed By: Gil Castle M.D. <<Signature on File>>
== END 2020-03-23 06:00 | disposition home or self-care (01) ==
LOC: ONCMED 06:00
PROVIDERS: PCP Family Medicine; Visit Provider Internal Medicine Medical Oncology
DX: Z51.11 Encounter for antineoplastic chemotherapy (principal); C34.11 Malignant neoplasm of upper lobe, right bronchus or lung; C79.51 Secondary malignant neoplasm of bone; E23.2 Diabetes insipidus; J44.9 Chronic obstructive pulmonary disease, unspecified; E78.5 Hyperlipidemia, unspecified
CPT/HCPCS: 96372; 99214; J0897

== ENCOUNTER 2020-05-04 06:25 | Outpatient (CLI) | payer BC, SELFPAY ==
--- NOTE | 2020-05-04 12:31 | ONC FU_ITS ---
Dr. Castle Patient Follow-Up Note Patient: Gabriel Ynaez Unit #: [id number]: [id number] Dicatated By: Gil Castle M.D.Date of Visit:May 04, 2020 Onc Med Follow-up/Prog Note Chief Complaint: Lung cancer. 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 His disease was stage IA (T1a, N), M0) at initial diagnosis in 2012, but with subsequent progression to stage IV ( M1b). He had presented with a spontaneous pneumothorax and a right upper lobe nodule in 2012. On 02/28/2013 because of persistent air leak he required VATS with a bi-segmentectomy of the right upper lobe, resection of right upper lobe ruptured bleb, and pleurodesis. No thoracic lymphadenectomy was performed. His surgical pathology showed a 1.5 cm minimally invasive adenocarcinoma with negative margins. Clinically there was no distant or regional metastatic disease reported. Thus, his disease was stage IA (T1a, N0, M0), and he was followed expectantly. His surveillance CT of the chest on 09/01/2014 showed post operative changes in the right upper lobe with stable area of nodular thickening and scarring. He was first seen by Dr. Perez on 01/10/2015. His restaging CT of the chest on 03/22/2015 was unchanged. Further restaging CT on 09/06/2015 showed scarring, but no evidence of metastatic disease. He continued on observation/expectant management. He has underlying COPD and dyslipidemia. He stopped smoking in the . In the last 2-3 years he had chronic shortness of breath, oxygen dependence at night. He had screening colonoscopy on 04/17/2012. The only finding was a hyperplastic polyp. INTERIM HISTORY: His surveillance CT scans as of March 2017 showed no evidence of recurrence. The latter study did show increased nodular thickening within the posterior right lateral pleura which was noted to be mildly increased from previous studies, measuring up to 9.[address] on 10/02/2017 showed pronounced volume loss on the right side with pleural thickening and scarring. There was noted to be a small focus of trapped lung low on the right side. There was essentially no change compared to the March [address] study[address] on 04/08/2018 showed pleural-based density in the posterior upper right chest measuring 20 x 11 mm compared to 8 x 12 mm on the study from September 2017. A pleural-based density in the medial mid right chest increased to 17 x 16 mm compared to 8 x 9 mm on the previous study. A pleural-based density on the medial lower right chest also appeared more prominent. The findings were felt to be suspicious for pleural-based metastatic disease. He had further evaluation with restaging PET/CT on 04/28/2018. There was noted to be pronounced activity throughout the right hemithorax, felt to be associated with inflammation in the pleura related to the pleurodesis or VATS. It was noted to have calcifications associated with it. A 2 cm diameter pleural based lesion was thought to possibly represent early tumor involvement. An abnormality in a left anterior rib was felt to be suspicious for rib fracture. A focus involving a posterior rib on the right side was thought be consistent with early bone metastasis or inflammation or fracture. There were lesions noted in the pelvic bone and right femur which were felt to be consistent with metastatic bone lesions. MRI of the brain on 05/06/2018 showed rather pronounced deep white matter disease felt to possibly represent a demyelinating process versus pronounced small vessel ischemic changes. It did not appear to be due to metastatic disease. Bone scan on 05/08/2018 showed multiple areas of abnormal uptake involving the left hemipelvis, right femur, multiple ribs, thoracic spine, and likely a small focus in the cervical spine. On 05/22/[address] directed needle biopsy of the lesion in the left ilium. Pathology was consistent with metastatic adenocarcinoma. The tumor cells were positive for CK7, TTF-1, and Napsin A. He was seen for a follow-up visit on 05/29/2018. At that point he did appear to be having significant bone pain associated with the metastatic involvement. As it did include weightbearing areas, I opted to refer him for palliative radiation. In the meantime, I also requested additional pathologic studies, including a PD-L1 immunostain, which showed low PD-L1 expression at 5%. In addition, the tumor cells were tested and found to be negative for EGFR mutations and for the ALK and ROS1 gene rearrangements. He was seen here on 07/02/2018 to initiate chemotherapy with pembrolizumab in combination with carboplatin and pemetrexed. He had multiple new complaints including low-grade fever, increased shortness of breath, and new pain and swelling in both legs. He was found to have extensive deep vein thrombosis in both legs and very extensive pulmonary emboli bilaterally. He began anticoagulation with Lovenox, and he was observed overnight in the hospital. He then returned on 07/08/2018 to begin cycle 1 of carboplatin/pemetrexed in combination with pembrolizumab. He also started denosumab injections for the metastatic bone involvement. He tolerated the chemotherapy well, and he was able to continue with cycle 2 of carboplatin/Alimta/pembrolizumab on 07/29/2018. During that time his anticoagulation was transitioned to a apixaban. He continued to tolerate the chemotherapy with acceptable toxicity. He proceeded with cycle 3 on 08/19/2018 and was cycle 4 on 09/08/2018. On 09/19/2018 he was admitted to [facility] with shortness of breath and hypoxia. His clinical evaluation was consistent with pneumonitis associated with his immunotherapy. He was given high-dose steroid therapy. His clinical course was complicated by left pneumothorax with persistent air leak. He was eventually discharged home on 10/08/2018 with the chest tube in place. He is on 30 mg of prednisone daily. Just prior to discharge, he also was found to have Clostridium difficile colitis, for which he began treatment with oral vancomycin. During follow-up he continued to have severe shortness of breath and limited activity tolerance. He attempted to remove his chest to begin last week, but it had to be reinserted within a couple of hours. His restaging CT scans on 11/13/2018 showed no evidence of recurrent pulmonary embolus. There was a persistent small residual filling defect in the posterior basal segment right lower lobe pulmonary artery branch. There was improvement in the previously noted right upper, middle, and lower lobe pneumonia compared to the 08/27/2018 study. There was evidence of left hemithorax talc pleurodesis and placement of lower third left hemithorax anterior pleural space pigtail catheter. A right hilar lymph node appears stable. There is no evidence of other significant lymphadenopathy. A T5 vertebral body metastatic lesion appeared stable. The abdomen and pelvis shows stable appearance of a mixed density metastatic lesion in the left ilium. There was subcutaneous soft tissue edema noted in the left flank. There were no other significant findings. I had seen him for a follow-up visit on 11/13/2018. He was showing some improvement in his clinical status. At that point he continued monthly denosumab injections for the metastatic bone involvement, but in the absence of any evidence of disease progression, I opted to keep his chemotherapy on hold. In the meantime, he continued follow-up with Dr. Orlando and he was started on diuretic therapy for cor pulmonale. He continued to have a high oxygen requirement. Restaging CT scans from 06/02/2019 showed continued pleural scarring and thickening with volume loss on the right side. There was also pronounced pleural scarring and thickening involving the left lung, and there was thickening of the soft tissues between the ribs and the tip of the scapula on the left side that appeared very worrisome for tumor involvement in the soft tissues. There was pronounced soft tissue thickening and abnormal enhancement of the tissue extending along the left lateral chest wall, possibly related to the previous procedures. Metastatic disease, though, was not excluded. There appear to be a couple of small cysts in the liver. There was some inhomogeneity involving the right finger and the left iliac wing, appearance of which was not significantly changed from the previous PET/CT. With those findings, he continued denosumab injections for the metastatic bone involvement, but he otherwise continued observation/symptomatic management for the lung cancer. Restaging PET/CT on 09/09/2019 showed pronounced increased activity in the pleural spaces of both hemithoraces, unclear as to whether it was due post therapeutic changes or to new spread of tumor. A focus of activity in the rectum was noted to be fairly intense, but unchanged compared to the February study. The bony metastases were noted to have markedly improved. He continued treatment with denosumab at a 3-month interval. A restaging PET/CT on 12/15/2019 showed an area of increased metabolic activity along the left lateral chest wall just inferior to the scapula, very similar in appearance to the prior study. Bilateral talc pleurodesis changes were again noted, also similar to the prior study. A new FDG avid mass was noted within the left lateral limb of the adrenal gland measuring 1.5 cm, SUV 4.9, worrisome for metastatic disease. Also noted was a small lymph node within the aortocaval region in the mid abdomen at the L3 level with mild FDG activity, SUV 4.8, also suspicious for possible metastasis. Robust activity was again noted within the region of the lower rectum. As of his follow-up visit on 12/22/2019 he appeared stable clinically, and we opted to continue with observation/expectant management. At that point I had transitioned his anticoagulation from Lovenox to apixaban. On 02/28/2020 he had presented to the [facility] emergency room with acute onset of weakness in the left arm and hand. He had some transient visual impairment and he also had some stumbling, but the main problem was with his left hand, particularly his fine motor skills. His brain MRI with and without contrast showed restricted diffusion along the central sulcus involving the frontal and parietal lobe and an area of restricted diffusion along the cortex of the right parietal lobe. Multiple small areas of restricted diffusion were noted within the right frontal lobe, bilateral parietal lobes, bilateral occipital lobes, and the bilateral cerebellum. 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 Also noted were enhancing nodules within the bilateral cerebellum, the largest measuring 7 x 4 mm, which were felt to be suggestive of metastatic disease. There was no associated edema. His anticoagulation was changed back to Lovenox, and his symptoms improved with conservative management. I had seen him for a follow-up visit on 03/04/2020. At that point his symptoms had not completely resolved, but they were definitely improving. I was able to review the MRI disc with 1 of the radiologist. One lesion in the lateral left cerebellar hemisphere did appear more prominent and it appeared more suspicious for a metastatic lesion. The other cerebellar lesions were smaller and were felt to be indeterminate. Restaging CT scans of the chest, abdomen, and pelvis on 03/08/2020 showed no change in the pleural calcification versus pleurodesis and there was unchanged sclerosis in the left hilum and left initial tuberosity. An aortocaval lymph node was noted to have decreased in size. However, there was further increase in the size of the left adrenal mass to 3.5 x 2.6 cm compared to 14 mm on the previous study. A 5 mm low-density focus in the right lobe of the liver appeared stable. His repeat brain MRI on 04/04/2020 showed several small enhancing lesions in the right and left cerebellum, superior right frontal and superior right parietal areas which appeared consistent with metastatic disease. There were evolving areas of infarction in the right parietal and right occipital areas with multiple other tiny areas of infarction in the right and left cerebellum, again consistent with embolic infarctions. With those findings, he underwent palliative whole brain radiation. As his CT scans had also shown evidence of what appeared to be isolated disease progression in the right adrenal gland, I had recommended that that site also be treated. He completed radiation on 04/29/2020, both sites to a total dose of 3000 cGy. During that time he had developed new stroke symptoms in the left arm/hand despite being on anticoagulation with Lovenox. At that point I did opt to check his anti-Xa level, and it actually was a little above therapeutic range. He is seen for a followup visit. He complains that he is very tired and sleepy. He has limited activity now. ECOG score is 3. Appetite is still good. He has had slight fever, maximum 99.3 degrees. He does not complain of chills or sweating. His breathing has been okay. He is not requiring oxygen. He does not complain of cough and he has not been having chest pain. He had nausea for 1 or 2 days in association with his stroke symptoms. He has no other GI or complaints. He has no significant joint or bone pain. He has had only a little bit of headache. He does not complain of dizziness. He still has a little weakness in his left hand. His has noticed some change in his cognitive function. Medications: Citalopram Hydrobromide 1 Tablet (of 20 mg) Oral daily, Desmopressin Acetate 1 spray(s) (of 1.5 mg/mL) Solution Nasal b.i.d., Lasix 1 Tablet (of 40 mg) Oral daily PRN, Lovenox 120 mg (of 300 mg/3ml) Injection daily, Morphine Sulfate ER 1 Tablet (of 15 mg) Tablet, controlled release Oral q 12 hours, oxygen 3 L Aerosol at bedtime, Potassium 1 (99 mg) Tablet Oral PRN, Rosuvastatin Calcium 1 (10 mg) Tablet Oral daily Allergies: No Known Allergies. Review of Systems: Constitutional - He has very tired and sleeping. Activity is very limited. Appetite is good and weight is stable. He has had a slight fever. No chills or sweating. ECOG score is 3, ENMT - No sinus congestion/drainage. No mouth sores. No sore throat or difficulty swallowing, Hematologic/Lymphatic - He has bruising with Lovenox injections, Respiratory - His breathing is OK. No cough. No pleuritic pain or hemoptysis, Cardiovascular - No angina pain. No palpitations, Gastrointestinal - He had nausea 1 or 2 days with his recent stroke. No heartburn or acid reflux. No diarrhea or constipation. No blood in the stool or black stools, Genitourinary (M) - No dysuria or hematuria. No urinary frequency. No urgency or incontinence, Musculoskeletal - No joint or bone pain, Neurologic - He has a little bit headache. No dizziness. No numbness or tingling. He has had weakness in his left hand with the stroke, Psychiatric - No anxiety or depression. No insomnia. Vital Signs: Performed on May 04, 2020 09:58 Height - 71.00 in Weight - 179.8 lbs (LOW) BSA - 2.02 sq.m BMI - 25.08 Temperature - 98.4 F Pulse - 66 /min Respiration - 24 /min BP - 131/76 mm(hg) O2 Sat - 98 % Pain - 0 Physical Examination: Constitutional - He appears generally weak, Eyes - Sclerae nonicteric. Conjunctivae clear, ENMT - No lesions noted in the oral cavity, Hematologic/Lymphatic - No cervical, clavicular, or axillary adenopathy, Respiratory - Lungs sound clear with pretty good air movement bilaterally, Cardiovascular - Heart rhythm is regular. There is no murmur, gallop, or rub noted, Abdomen - Soft. Liver and spleen are not enlarged. There is no abdominal mass or ascites noted and there is no inguinal adenopathy, Extremities - No edema, Neurologic - There is just slight weakness in the left hand. There is no other neurologic deficit noted. Lab/Imaging: Test performed on Apr 20, 2020 09:33 Heparin Anti- Xa (LMWH) 1.35 IU/mL Impression: 1. Patient with minimally invasive adenocarcinoma (bronchoalveolar carcinoma) involving the upper lobe of the right lung. His disease was stage IA (T1a, N0, M0) at initial diagnosis in 2012. He had subsequent progression to stage IV disease (M1b) with evidence of recurrence in the right lung and with multiple sites of metastatic bone involvement, including biopsy-proven metastatic adenocarcinoma involving the left ilium. 2. He also has suspected diabetes insipidus. 3. His initial treatment included VATS with a bi-segmentectomy of the right upper lobe. The procedure also included resection of right upper lobe ruptured bleb and pleurodesis. His other medical illnesses include: 4. COPD. 5. Hyperlipidemia. He had significant pain in weightbearing areas associated with his metastatic bone involvement. He initially started on treatment with denosumab, and he was then referred for palliative radiation, which he completed. On further pathologic analysis his tumor was found to be negative for EGFR mutations and for the ALK and ROS 1 gene rearrangements. A PD-L1 immunostain showed low expression at less than 5%. Given those findings, he was then scheduled to begin systemic therapy with carboplatin and pemetrexed chemotherapy in combination with pembrolizumab. He was seen here on 07/02/2018 to begin his 1st cycle of chemotherapy. He had multiple complaints including low-grade fever, increased shortness of breath, and new pain and swelling in both legs. His venous Doppler showed extensive deep vein thrombosis in both legs, and CT pulmonary angiogram showed extensive pulmonary emboli, including involvement of the left main pulmonary artery. He began anticoagulation with Lovenox, and he was able to return to begin chemotherapy and 07/08/2018. He tolerated the treatment without acute toxicity, and he continued with cycle 2 on 07/29/2017. During that time, he also transitioned his anticoagulation to a apixaban and he has continued monthly denosumab injections for the metastatic bone involvement. He continued to tolerate chemotherapy with acceptable toxicity, and he proceeded with cycle 3 on 08/19/2018 and with cycle 4 on 09/08/2018. On 09/19/2018 he was admitted to the hospital with shortness of breath and severe hypoxia. This appeared to be due to pneumonitis from his immunotherapy. He was given high-dose steroid therapy. His clinical course was then complicated by a left pneumothorax with persistent air leak and by Clostridium difficile colitis. During follow-up he has been showing some improvement in his clinical status with treatment for the Clostridium difficile and with the steroid therapy. He still has shortness of breath and very limited activity tolerance. His restaging CT scans show significant improvement in the appearance of the right lung. Initially he had been unable to tolerate removal of the chest tube on the left side, but eventually it was able to be successfully removed. He then continued denosumab injections for the metastatic bone involvement, but his chemotherapy remained on hold. He also continued followup Dr. Orlando, and he was started on diuretic therapy for cor pulmonale. His repeat CT scan in October 2018 did appear to show some evidence of response to the chemotherapy/immunotherapy regimen. During subsequent follow-up there was gradual improvement in his performance status, though he still had limited activity tolerance. There were significant residual abnormalities on his followup chest CT, but it was certain as to what extent any of that may have reflected active tumor. By clinical evaluation he did not have obvious disease progression. His restaging PET/CT on 09/09/2019 showed significant uptake in the pleura bilaterally, but again with uncertainty as to whether it was due to post therapeutic changes versus disease progression. There was continued focus of uptake in the rectal area. The significance of that finding also was uncertain, as he had no associated symptoms and no abnormal findings on rectal exam. At his follow-up visit on 09/21/2019 he appeared stable clinically, and he continued treatment with denosumab. His restaging PET/CT on 12/15/2019 showed 2 areas of possible disease progression, including a small left adrenal mass and a small periaortic lymph node, both with mild FDG activity. Activity was again noted in the rectal area, the significance of which was uncertain. As his clinical status remained stable, he continued his same treatment other than I had opted at that point to transition his anticoagulation to apixaban. On 02/28/2020 he had developed acute onset of weakness in the left arm and hand. His head MRI showed multiple areas of infarct, consistent with embolic stroke. He restarted anticoagulation with Lovenox, and his neurologic symptoms improved. His MRI also showed small enhancing lesions in the bilateral cerebellum, appearance of which were felt to be more consistent with metastatic disease, though there was no associated edema. On review of the MRI disc with 1 of the radiologist, a lesion in the lateral left cerebellar hemisphere did appear more prominent and more suspicious for a metastatic lesion. The others were smaller and appear to be nonspecific. His restaging CT scans of the chest, abdomen, and pelvis did show a significant increase in a left adrenal mass, consistent with progressive metastatic disease. There was no other evidence of disease progression. His repeat brain MRI on 04/04/2020 showed several small enhancing lesions in the right and left cerebellum, superior right frontal and superior right parietal areas which appeared consistent with metastatic disease. There were evolving areas of infarction in the right parietal and right occipital areas with multiple other tiny areas of infarction in the right and left cerebellum, again consistent with embolic infarctions. With those findings, he underwent palliative whole brain radiation. As his CT scans had also shown evidence of what appeared to be isolated disease progression in the right adrenal gland, I had recommended that that site also be treated. He completed radiation on 04/29/2020, both sites to a total dose of 3000 cGy. During that time he had developed new stroke symptoms in the left arm/hand despite being on anticoagulation with Lovenox. At that point I did opt to check his anti-Xa level, and it actually was a little above therapeutic range. Since completing radiation there has been a significant decline in his performance status. Plan: The fact that he has had ongoing embolic strokes despite being on adequate anticoagulation with Lovenox is very poor from a prognostic standpoint. Options for further treatment of his lung cancer are limited. The standard second line chemotherapy treatment would be single agent docetaxel, with a response rate in the range of 20%. It is a treatment that would have potential for significant toxicities, including weakness/fatigue, low blood counts, and neuropathy, among others. As his known disease has been treated with radiation, it is unclear to what extent, if any, he will benefit. Overall, I would favor conservative management, and for the time being both the patient and his are comfortable just monitoring with close observation. For now I will just plan a follow-up visit in 5 weeks to coordinate with his port flush schedule. In the meantime, he will continue his Lovenox at the same dosage. Signed By: Gil Castle M.D. <<Signature on File>>
== END 2020-05-04 06:26 | disposition home or self-care (01) ==
LOC: ONCMED 06:26
PROVIDERS: PCP Family Medicine; Visit Provider Internal Medicine Medical Oncology
DX: C34.11 Malignant neoplasm of upper lobe, right bronchus or lung (principal); C79.31 Secondary malignant neoplasm of brain; C79.72 Secondary malignant neoplasm of left adrenal gland; C79.71 Secondary malignant neoplasm of right adrenal gland; C79.51 Secondary malignant neoplasm of bone; Z90.2 Acquired absence of lung [part of]; J44.9 Chronic obstructive pulmonary disease, unspecified; E78.5 Hyperlipidemia, unspecified; Z92.3 Personal history of irradiation; Z86.711 Personal history of pulmonary embolism; Z79.01 Long term (current) use of anticoagulants; Z86.73 Personal history of transient ischemic attack (TIA), and cerebral infarction without residual deficits; Z92.21 Personal history of antineoplastic chemotherapy
CPT/HCPCS: 99214

== ENCOUNTER 2020-06-13 08:20 | Outpatient (CLI) | payer BC, SELFPAY ==
[2020-06-13 09:00] LABS: Basophils % 0.4 %; Eosinophils # 0.1 10^3/uL (0.0-0.8); Eosinophils % 1.7 %; Hemoglobin 13.8 g/dL (11.7-16.6); Lymphocytes # 0.9 10^3/uL (0.8-4.8); Lymphocytes % 19.7 %; Mean Corpuscular HGB Conc 31.4 g/dL (30.0-36.0); Mean Corpuscular Hemoglobin 29.7 pg (28.0-34.0); Mean Corpuscular Volume 94.6 fL (80-94); Monocytes # 0.6 10^3/uL (0.2-0.9); Monocytes % 12.4 %; Neutrophils # 3.04 10^3/uL (1.8-7.7); Neutrophils % 65.4 %; Nucleated Red Blood Cells % 0 %; Platelet Count 211 10^3/cmm (130-400); Red Blood Count 4.65 10^6/uL (4.1-5.3); Red Cell Distribution Width 13.2 % (12.1-15.1); White Blood Count 4.7 10^3/uL (4.0-10.0)
[2020-06-13 09:20] LABS: Alanine Aminotransferase 20 U/L (0-41); Albumin Level 3.9 g/dL (3.5-5.2); Alkaline Phosphatase 68 IU/L (40-130); Anion Gap 12.3 (5-19); Aspartate Amino Transferase 15 U/L (0-40); Blood Urea Nitrogen 7 mg/dL (6-20); Calcium 9.3 mg/dL (8.5-10.5); Carbon Dioxide 27 mmol/L (22-29); Chloride 103 mmol/L (98-107); Globulin 2.4 g/dL (1.3-4.6); Glomerular Filtration Rate 98.9 mL/min (90-130); Glucose 106 mg/dL (65-115); Osmolality Calculated 284 mOsm/kg (285-295); Potassium 4.3 mmol/L (3.5-5.1); Sodium 138 mmol/L (136-145); Total Bilirubin 0.8 mg/dL (0.15-1.2); Total Protein 6.3 g/dL (6.6-8.7)
[2020-06-13] MEDS: denosumab 120 mg SDV SUBCUT (10:12)
--- NOTE | 2020-06-16 08:01 | ONC FU_ITS ---
Dr. Castle Patient Follow-Up Note Patient: Gabriel Yanez Unit #: [id number]: [id number] Dicatated By: Gil Castle M.D.Date of Visit:Jun 13, 2020 Onc Med Follow-up/Prog Note Chief Complaint: Lung cancer. 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 His disease was stage IA (T1a, N), M0) at initial diagnosis in 2012, but with subsequent progression to stage IV ( M1b). He had presented with a spontaneous pneumothorax and a right upper lobe nodule in 2012. On 02/28/2013 because of persistent air leak he required VATS with a bi-segmentectomy of the right upper lobe, resection of right upper lobe ruptured bleb, and pleurodesis. No thoracic lymphadenectomy was performed. His surgical pathology showed a 1.5 cm minimally invasive adenocarcinoma with negative margins. Clinically there was no distant or regional metastatic disease reported. Thus, his disease was stage IA (T1a, N0, M0), and he was followed expectantly. His surveillance CT of the chest on 09/01/2014 showed post operative changes in the right upper lobe with stable area of nodular thickening and scarring. He was first seen by Dr. Perez on 01/10/2015. His restaging CT of the chest on 03/22/2015 was unchanged. Further restaging CT on 09/06/2015 showed scarring, but no evidence of metastatic disease. He continued on observation/expectant management. He has underlying COPD and dyslipidemia. He stopped smoking in the . In the last 2-3 years he had chronic shortness of breath, oxygen dependence at night. He had screening colonoscopy on 04/17/2012. The only finding was a hyperplastic polyp. INTERIM HISTORY: His surveillance CT scans as of March 2017 showed no evidence of recurrence. The latter study did show increased nodular thickening within the posterior right lateral pleura which was noted to be mildly increased from previous studies, measuring up to 9.[address] on 10/02/2017 showed pronounced volume loss on the right side with pleural thickening and scarring. There was noted to be a small focus of trapped lung low on the right side. There was essentially no change compared to the March [address] study[address] on 04/08/2018 showed pleural-based density in the posterior upper right chest measuring 20 x 11 mm compared to 8 x 12 mm on the study from September 2017. A pleural-based density in the medial mid right chest increased to 17 x 16 mm compared to 8 x 9 mm on the previous study. A pleural-based density on the medial lower right chest also appeared more prominent. The findings were felt to be suspicious for pleural-based metastatic disease. He had further evaluation with restaging PET/CT on 04/28/2018. There was noted to be pronounced activity throughout the right hemithorax, felt to be associated with inflammation in the pleura related to the pleurodesis or VATS. It was noted to have calcifications associated with it. A 2 cm diameter pleural based lesion was thought to possibly represent early tumor involvement. An abnormality in a left anterior rib was felt to be suspicious for rib fracture. A focus involving a posterior rib on the right side was thought be consistent with early bone metastasis or inflammation or fracture. There were lesions noted in the pelvic bone and right femur which were felt to be consistent with metastatic bone lesions. MRI of the brain on 05/06/2018 showed rather pronounced deep white matter disease felt to possibly represent a demyelinating process versus pronounced small vessel ischemic changes. It did not appear to be due to metastatic disease. Bone scan on 05/08/2018 showed multiple areas of abnormal uptake involving the left hemipelvis, right femur, multiple ribs, thoracic spine, and likely a small focus in the cervical spine. On 05/22/[address] directed needle biopsy of the lesion in the left ilium. Pathology was consistent with metastatic adenocarcinoma. The tumor cells were positive for CK7, TTF-1, and Napsin A. He was seen for a follow-up visit on 05/29/2018. At that point he did appear to be having significant bone pain associated with the metastatic involvement. As it did include weightbearing areas, I opted to refer him for palliative radiation. In the meantime, I also requested additional pathologic studies, including a PD-L1 immunostain, which showed low PD-L1 expression at 5%. In addition, the tumor cells were tested and found to be negative for EGFR mutations and for the ALK and ROS1 gene rearrangements. He was seen here on 07/02/2018 to initiate chemotherapy with pembrolizumab in combination with carboplatin and pemetrexed. He had multiple new complaints including low-grade fever, increased shortness of breath, and new pain and swelling in both legs. He was found to have extensive deep vein thrombosis in both legs and very extensive pulmonary emboli bilaterally. He began anticoagulation with Lovenox, and he was observed overnight in the hospital. He then returned on 07/08/2018 to begin cycle 1 of carboplatin/pemetrexed in combination with pembrolizumab. He also started denosumab injections for the metastatic bone involvement. He tolerated the chemotherapy well, and he was able to continue with cycle 2 of carboplatin/Alimta/pembrolizumab on 07/29/2018. During that time his anticoagulation was transitioned to a apixaban. He continued to tolerate the chemotherapy with acceptable toxicity. He proceeded with cycle 3 on 08/19/2018 and was cycle 4 on 09/08/2018. On 09/19/2018 he was admitted to [facility] with shortness of breath and hypoxia. His clinical evaluation was consistent with pneumonitis associated with his immunotherapy. He was given high-dose steroid therapy. His clinical course was complicated by left pneumothorax with persistent air leak. He was eventually discharged home on 10/08/2018 with the chest tube in place. He is on 30 mg of prednisone daily. Just prior to discharge, he also was found to have Clostridium difficile colitis, for which he began treatment with oral vancomycin. During follow-up he continued to have severe shortness of breath and limited activity tolerance. He attempted to remove his chest to begin last week, but it had to be reinserted within a couple of hours. His restaging CT scans on 11/13/2018 showed no evidence of recurrent pulmonary embolus. There was a persistent small residual filling defect in the posterior basal segment right lower lobe pulmonary artery branch. There was improvement in the previously noted right upper, middle, and lower lobe pneumonia compared to the 08/27/2018 study. There was evidence of left hemithorax talc pleurodesis and placement of lower third left hemithorax anterior pleural space pigtail catheter. A right hilar lymph node appears stable. There is no evidence of other significant lymphadenopathy. A T5 vertebral body metastatic lesion appeared stable. The abdomen and pelvis shows stable appearance of a mixed density metastatic lesion in the left ilium. There was subcutaneous soft tissue edema noted in the left flank. There were no other significant findings. I had seen him for a follow-up visit on 11/13/2018. He was showing some improvement in his clinical status. At that point he continued monthly denosumab injections for the metastatic bone involvement, but in the absence of any evidence of disease progression, I opted to keep his chemotherapy on hold. In the meantime, he continued follow-up with Dr. Orlando and he was started on diuretic therapy for cor pulmonale. He continued to have a high oxygen requirement. Restaging CT scans from 06/02/2019 showed continued pleural scarring and thickening with volume loss on the right side. There was also pronounced pleural scarring and thickening involving the left lung, and there was thickening of the soft tissues between the ribs and the tip of the scapula on the left side that appeared very worrisome for tumor involvement in the soft tissues. There was pronounced soft tissue thickening and abnormal enhancement of the tissue extending along the left lateral chest wall, possibly related to the previous procedures. Metastatic disease, though, was not excluded. There appear to be a couple of small cysts in the liver. There was some inhomogeneity involving the right finger and the left iliac wing, appearance of which was not significantly changed from the previous PET/CT. With those findings, he continued denosumab injections for the metastatic bone involvement, but he otherwise continued observation/symptomatic management for the lung cancer. Restaging PET/CT on 09/09/2019 showed pronounced increased activity in the pleural spaces of both hemithoraces, unclear as to whether it was due post therapeutic changes or to new spread of tumor. A focus of activity in the rectum was noted to be fairly intense, but unchanged compared to the February study. The bony metastases were noted to have markedly improved. He continued treatment with denosumab at a 3-month interval. A restaging PET/CT on 12/15/2019 showed an area of increased metabolic activity along the left lateral chest wall just inferior to the scapula, very similar in appearance to the prior study. Bilateral talc pleurodesis changes were again noted, also similar to the prior study. A new FDG avid mass was noted within the left lateral limb of the adrenal gland measuring 1.5 cm, SUV 4.9, worrisome for metastatic disease. Also noted was a small lymph node within the aortocaval region in the mid abdomen at the L3 level with mild FDG activity, SUV 4.8, also suspicious for possible metastasis. Robust activity was again noted within the region of the lower rectum. As of his follow-up visit on 12/22/2019 he appeared stable clinically, and we opted to continue with observation/expectant management. At that point I had transitioned his anticoagulation from Lovenox to apixaban. On 02/28/2020 he had presented to the [facility] emergency room with acute onset of weakness in the left arm and hand. He had some transient visual impairment and he also had some stumbling, but the main problem was with his left hand, particularly his fine motor skills. His brain MRI with and without contrast showed restricted diffusion along the central sulcus involving the frontal and parietal lobe and an area of restricted diffusion along the cortex of the right parietal lobe. Multiple small areas of restricted diffusion were noted within the right frontal lobe, bilateral parietal lobes, bilateral occipital lobes, and the bilateral cerebellum. 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 Also noted were enhancing nodules within the bilateral cerebellum, the largest measuring 7 x 4 mm, which were felt to be suggestive of metastatic disease. There was no associated edema. His anticoagulation was changed back to Lovenox, and his symptoms improved with conservative management. I had seen him for a follow-up visit on 03/04/2020. At that point his symptoms had not completely resolved, but they were definitely improving. I was able to review the MRI disc with 1 of the radiologist. One lesion in the lateral left cerebellar hemisphere did appear more prominent and it appeared more suspicious for a metastatic lesion. The other cerebellar lesions were smaller and were felt to be indeterminate. Restaging CT scans of the chest, abdomen, and pelvis on 03/08/2020 showed no change in the pleural calcification versus pleurodesis and there was unchanged sclerosis in the left hilum and left initial tuberosity. An aortocaval lymph node was noted to have decreased in size. However, there was further increase in the size of the left adrenal mass to 3.5 x 2.6 cm compared to 14 mm on the previous study. A 5 mm low-density focus in the right lobe of the liver appeared stable. His repeat brain MRI on 04/04/2020 showed several small enhancing lesions in the right and left cerebellum, superior right frontal and superior right parietal areas which appeared consistent with metastatic disease. There were evolving areas of infarction in the right parietal and right occipital areas with multiple other tiny areas of infarction in the right and left cerebellum, again consistent with embolic infarctions. With those findings, he underwent palliative whole brain radiation. As his CT scans had also shown evidence of what appeared to be isolated disease progression in the right adrenal gland, I had recommended that that site also be treated. He completed radiation on 04/29/2020, both sites to a total dose of 3000 cGy. During that time he had developed new stroke symptoms in the left arm/hand despite being on anticoagulation with Lovenox. At that point I did opt to check his anti-Xa level, and it actually was a little above therapeutic range. He continued Lovenox at the same dosage. He is seen for a followup visit. He says he has been extremely tired and weak since the radiation. He also has excessive somnolence. His activity is very limited. ECOG score is 3. Appetite also is down some and his weight is down a couple more pounds. He does not have fever or night sweats. He has no shortness of breath, cough, or chest pain. He has no GI or complaints. He has no significant joint or bone pain. He does complain that his balance is off and he has some neuropathy in his right foot. He has just mild residual weakness in his left hand. He has had no new neurologic/stroke symptoms. Medications: Citalopram Hydrobromide 1 Tablet (of 20 mg) Oral daily, Desmopressin Acetate 1 spray(s) (of 1.5 mg/mL) Solution Nasal b.i.d., Lasix 1 Tablet (of 40 mg) Oral daily PRN, Lovenox 120 mg (of 300 mg/3ml) Injection daily, Morphine Sulfate ER 1 Tablet (of 15 mg) Tablet, controlled release Oral q 12 hours, oxygen 3 L Aerosol at bedtime, Potassium 1 (99 mg) Tablet Oral PRN, Rosuvastatin Calcium 1 (10 mg) Tablet Oral daily Allergies: No Known Allergies. Review of Systems: Constitutional - He has been extremely tired and weak since radiation. His activity is very limited. Appetite is down some and his weight is down a couple more pounds. He does not have fever or night sweats. ECOG score is 3, ENMT - No sinus congestion/drainage. No mouth sores. No sore throat or difficulty swallowing, Hematologic/Lymphatic - He does not have excessive bruising or bleeding, Respiratory - No shortness of breath. No cough. No pleuritic pain or hemoptysis, Cardiovascular - No angina pain. No palpitations, Gastrointestinal - No nausea or vomiting. No heartburn or acid reflux. No diarrhea or constipation. No blood in the stool or black stools, Genitourinary (M) - No dysuria or hematuria. No urinary frequency. No urgency or incontinence, Musculoskeletal - He has no significant joint or bone pain, Integumentary - No skin rash, Neurologic - No headache or dizziness. He does complain that his balance is off and he has some residual neuropathy in his right foot. There is still some weakness in his left hand, Psychiatric - No anxiety or depression. No insomnia. Vital Signs: Performed on Jun 13, 2020 09:41 Height - 71.00 in Weight - 177.8 lbs (LOW) BSA - 2.01 sq.m BMI - 24.80 Temperature - 98.8 F Pulse - 75 /min Respiration - 16 /min BP - 128/81 mm(hg) O2 Sat - 97 % Pain - 0 Physical Examination: Constitutional - He appears somewhat weak generally, Eyes - Sclerae nonicteric. Conjunctivae clear, ENMT - No lesions noted in the oral cavity, Hematologic/Lymphatic - No cervical, clavicular, or axillary adenopathy, Respiratory - Lungs sound clear. He has pretty good air movement bilaterally, Cardiovascular - Heart rhythm is regular. There is no murmur, gallop, or rub noted, Abdomen - Soft. Liver and spleen are not enlarged. There is no abdominal mass or ascites noted and there is no inguinal adenopathy, Extremities - No edema, Neurologic - There is slight residual weakness in the left hand. There are no other focal deficits noted. Lab/Imaging: Test performed on Jun 13, 2020 08:41 Sodium 138 mmol/L Potassium 4.3 mmol/L Chloride 103 mmol/L CO2 27 mmol/L Anion Gap 12.3 BUN 7 mg/dL Creatinine 0.8 mg/dL Cr Clearance (Est) 115.0700 mL/min eGFR 98.9 mL/min Glucose 106 mg/dL Osmolality - Calculated 284 mOsm/kg Calcium 9.3 mg/dL Protein, Total 6.3 g/dL Albumin 3.9 g/dL Globulin 2.4 g/dL Bilirubin, Total 0.8 mg/dL ALT (SGPT) 20 U/L AST (SGOT) 15 U/L Alkaline Phosphatase 68 IU/L WBC 4.7 10 3/uL RBC 4.65 10 6/uL HGB 13.8 g/dL HCT 44.0 % MCV 94.6 fL MCH 29.7 pg MCHC 31.4 g/dL RDW 13.2 % Platelet Count 211 10 3/cmm MPV 10.0 fL Neutrophils 3.04 10 3/uL Lymphocytes 0.9 10 3/uL Monocytes 0.6 10 3/uL Eosinophils 0.1 10 3/uL Basophils 0.0 10 3/uL Neutrophil % 65.4 % Lymphocyte % 19.7 % Monocyte % 12.4 % Eosinophil % 1.7 % Basophils % 0.4 % NRBC % 0 % Impression: 1. Patient with minimally invasive adenocarcinoma (bronchoalveolar carcinoma) involving the upper lobe of the right lung. His disease was stage IA (T1a, N0, M0) at initial diagnosis in 2012. He had subsequent progression to stage IV disease (M1b) with evidence of recurrence in the right lung and with multiple sites of metastatic bone involvement, including biopsy-proven metastatic adenocarcinoma involving the left ilium. 2. He also has suspected diabetes insipidus. 3. His initial treatment included VATS with a bi-segmentectomy of the right upper lobe. The procedure also included resection of right upper lobe ruptured bleb and pleurodesis. His other medical illnesses include: 4. COPD. 5. Hyperlipidemia. He had significant pain in weightbearing areas associated with his metastatic bone involvement. He initially started on treatment with denosumab, and he was then referred for palliative radiation, which he completed. On further pathologic analysis his tumor was found to be negative for EGFR mutations and for the ALK and ROS 1 gene rearrangements. A PD-L1 immunostain showed low expression at less than 5%. Given those findings, he was then scheduled to begin systemic therapy with carboplatin and pemetrexed chemotherapy in combination with pembrolizumab. He was seen here on 07/02/2018 to begin his 1st cycle of chemotherapy. He had multiple complaints including low-grade fever, increased shortness of breath, and new pain and swelling in both legs. His venous Doppler showed extensive deep vein thrombosis in both legs, and CT pulmonary angiogram showed extensive pulmonary emboli, including involvement of the left main pulmonary artery. He began anticoagulation with Lovenox, and he was able to return to begin chemotherapy and 07/08/2018. He tolerated the treatment without acute toxicity, and he continued with cycle 2 on 07/29/2017. During that time, he also transitioned his anticoagulation to a apixaban and he has continued monthly denosumab injections for the metastatic bone involvement. He continued to tolerate chemotherapy with acceptable toxicity, and he proceeded with cycle 3 on 08/19/2018 and with cycle 4 on 09/08/2018. On 09/19/2018 he was admitted to the hospital with shortness of breath and severe hypoxia. This appeared to be due to pneumonitis from his immunotherapy. He was given high-dose steroid therapy. His clinical course was then complicated by a left pneumothorax with persistent air leak and by Clostridium difficile colitis. During follow-up he has been showing some improvement in his clinical status with treatment for the Clostridium difficile and with the steroid therapy. He still has shortness of breath and very limited activity tolerance. His restaging CT scans show significant improvement in the appearance of the right lung. Initially he had been unable to tolerate removal of the chest tube on the left side, but eventually it was able to be successfully removed. He then continued denosumab injections for the metastatic bone involvement, but his chemotherapy remained on hold. He also continued followup Dr. Orlando, and he was started on diuretic therapy for cor pulmonale. His repeat CT scan in October 2018 did appear to show some evidence of response to the chemotherapy/immunotherapy regimen. During subsequent follow-up there was gradual improvement in his performance status, though he still had limited activity tolerance. There were significant residual abnormalities on his followup chest CT, but it was certain as to what extent any of that may have reflected active tumor. By clinical evaluation he did not have obvious disease progression. His restaging PET/CT on 09/09/2019 showed significant uptake in the pleura bilaterally, but again with uncertainty as to whether it was due to post therapeutic changes versus disease progression. There was continued focus of uptake in the rectal area. The significance of that finding also was uncertain, as he had no associated symptoms and no abnormal findings on rectal exam. At his follow-up visit on 09/21/2019 he appeared stable clinically, and he continued treatment with denosumab. His restaging PET/CT on 12/15/2019 showed 2 areas of possible disease progression, including a small left adrenal mass and a small periaortic lymph node, both with mild FDG activity. Activity was again noted in the rectal area, the significance of which was uncertain. As his clinical status remained stable, he continued his same treatment other than I had opted at that point to transition his anticoagulation to apixaban. On 02/28/2020 he had developed acute onset of weakness in the left arm and hand. His head MRI showed multiple areas of infarct, consistent with embolic stroke. He restarted anticoagulation with Lovenox, and his neurologic symptoms improved. His MRI also showed small enhancing lesions in the bilateral cerebellum, appearance of which were felt to be more consistent with metastatic disease, though there was no associated edema. On review of the MRI disc with 1 of the radiologist, a lesion in the lateral left cerebellar hemisphere did appear more prominent and more suspicious for a metastatic lesion. The others were smaller and appear to be nonspecific. His restaging CT scans of the chest, abdomen, and pelvis did show a significant increase in a left adrenal mass, consistent with progressive metastatic disease. There was no other evidence of disease progression. His repeat brain MRI on 04/04/2020 showed several small enhancing lesions in the right and left cerebellum, superior right frontal and superior right parietal areas which appeared consistent with metastatic disease. There were evolving areas of infarction in the right parietal and right occipital areas with multiple other tiny areas of infarction in the right and left cerebellum, again consistent with embolic infarctions. With those findings, he underwent palliative whole brain radiation. As his CT scans had also shown evidence of what appeared to be isolated disease progression in the right adrenal gland, I had recommended that that site also be treated. He completed radiation on 04/29/2020, both sites to a total dose of 3000 cGy. During that time he had developed new stroke symptoms in the left arm/hand despite being on anticoagulation with Lovenox. At that point I did opt to check his anti-Xa level, and it actually was a little above therapeutic range. He continued Lovenox at the same dosage. Since completing his radiation he has had ongoing problems with severe fatigue and somnolence. It is uncertain what extent that may be treatment related or due to the underlying malignancy. However, thus far he has had no symptoms to suggest any further embolic strokes. Plan: He will continue anticoagulation with Lovenox. The dosage will remain the same. We discussed some options for managing his fatigue/somnolence, one of which would be to try steroid therapy. However, in the absence of any evidence of cerebral edema think a better option would be to try modafinil, which will be administered at the standard doses of 100 mg daily for 3 days followed by 200 mg daily, subject to verification of insurance coverage. I also now will schedule restaging CT scans of the chest, abdomen, and pelvis and restaging brain MRI. He will have further evaluation as indicated. Signed By: Gil Castle M.D. <<Signature on File>>
== END 2020-06-13 08:21 | disposition home or self-care (01) ==
LOC: ONCMED 08:23
PROVIDERS: PCP Family Medicine; Visit Provider Internal Medicine Medical Oncology
DX: C34.11 Malignant neoplasm of upper lobe, right bronchus or lung (principal); C79.51 Secondary malignant neoplasm of bone; R53.83 Other fatigue; R40.0 Somnolence; J44.9 Chronic obstructive pulmonary disease, unspecified; E78.5 Hyperlipidemia, unspecified; Z86.718 Personal history of other venous thrombosis and embolism; Z90.2 Acquired absence of lung [part of]; Z79.01 Long term (current) use of anticoagulants; Z92.3 Personal history of irradiation
CPT/HCPCS: 36591; 80053; 85025; 96372; 99214; J0897

== ENCOUNTER 2020-07-25 13:25 | Outpatient (CLI) | payer BC, SELFPAY ==
--- NOTE | 2020-07-25 14:59 | ONC FU_ITS ---
Dr. Castle Patient Follow-Up Note Patient: Gabriel Yanez Unit #: [id number]: [id number] Dicatated By: Gil Castle M.D.Date of Visit:Jul 25, 2020 Onc Med Follow-up/Prog Note Chief Complaint: Lung cancer. 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 His disease was stage IA (T1a, N), M0) at initial diagnosis in 2012, but with subsequent progression to stage IV ( M1b). He had presented with a spontaneous pneumothorax and a right upper lobe nodule in 2012. On 02/28/2013 because of persistent air leak he required VATS with a bi-segmentectomy of the right upper lobe, resection of right upper lobe ruptured bleb, and pleurodesis. No thoracic lymphadenectomy was performed. His surgical pathology showed a 1.5 cm minimally invasive adenocarcinoma with negative margins. Clinically there was no distant or regional metastatic disease reported. Thus, his disease was stage IA (T1a, N0, M0), and he was followed expectantly. His surveillance CT of the chest on 09/01/2014 showed post operative changes in the right upper lobe with stable area of nodular thickening and scarring. He was first seen by Dr. Perez on 01/10/2015. His restaging CT of the chest on 03/22/2015 was unchanged. Further restaging CT on 09/06/2015 showed scarring, but no evidence of metastatic disease. He continued on observation/expectant management. He has underlying COPD and dyslipidemia. He stopped smoking in the . In the last 2-3 years he had chronic shortness of breath, oxygen dependence at night. He had screening colonoscopy on 04/17/2012. The only finding was a hyperplastic polyp. INTERIM HISTORY: His surveillance CT scans as of March 2017 showed no evidence of recurrence. The latter study did show increased nodular thickening within the posterior right lateral pleura which was noted to be mildly increased from previous studies, measuring up to 9.[address] on 10/02/2017 showed pronounced volume loss on the right side with pleural thickening and scarring. There was noted to be a small focus of trapped lung low on the right side. There was essentially no change compared to the March [address] study[address] on 04/08/2018 showed pleural-based density in the posterior upper right chest measuring 20 x 11 mm compared to 8 x 12 mm on the study from September 2017. A pleural-based density in the medial mid right chest increased to 17 x 16 mm compared to 8 x 9 mm on the previous study. A pleural-based density on the medial lower right chest also appeared more prominent. The findings were felt to be suspicious for pleural-based metastatic disease. He had further evaluation with restaging PET/CT on 04/28/2018. There was noted to be pronounced activity throughout the right hemithorax, felt to be associated with inflammation in the pleura related to the pleurodesis or VATS. It was noted to have calcifications associated with it. A 2 cm diameter pleural based lesion was thought to possibly represent early tumor involvement. An abnormality in a left anterior rib was felt to be suspicious for rib fracture. A focus involving a posterior rib on the right side was thought be consistent with early bone metastasis or inflammation or fracture. There were lesions noted in the pelvic bone and right femur which were felt to be consistent with metastatic bone lesions. MRI of the brain on 05/06/2018 showed rather pronounced deep white matter disease felt to possibly represent a demyelinating process versus pronounced small vessel ischemic changes. It did not appear to be due to metastatic disease. Bone scan on 05/08/2018 showed multiple areas of abnormal uptake involving the left hemipelvis, right femur, multiple ribs, thoracic spine, and likely a small focus in the cervical spine. On 05/22/[address] directed needle biopsy of the lesion in the left ilium. Pathology was consistent with metastatic adenocarcinoma. The tumor cells were positive for CK7, TTF-1, and Napsin A. He was seen for a follow-up visit on 05/29/2018. At that point he did appear to be having significant bone pain associated with the metastatic involvement. As it did include weightbearing areas, I opted to refer him for palliative radiation. In the meantime, I also requested additional pathologic studies, including a PD-L1 immunostain, which showed low PD-L1 expression at 5%. In addition, the tumor cells were tested and found to be negative for EGFR mutations and for the ALK and ROS1 gene rearrangements. He was seen here on 07/02/2018 to initiate chemotherapy with pembrolizumab in combination with carboplatin and pemetrexed. He had multiple new complaints including low-grade fever, increased shortness of breath, and new pain and swelling in both legs. He was found to have extensive deep vein thrombosis in both legs and very extensive pulmonary emboli bilaterally. He began anticoagulation with Lovenox, and he was observed overnight in the hospital. He then returned on 07/08/2018 to begin cycle 1 of carboplatin/pemetrexed in combination with pembrolizumab. He also started denosumab injections for the metastatic bone involvement. He tolerated the chemotherapy well, and he was able to continue with cycle 2 of carboplatin/Alimta/pembrolizumab on 07/29/2018. During that time his anticoagulation was transitioned to a apixaban. He continued to tolerate the chemotherapy with acceptable toxicity. He proceeded with cycle 3 on 08/19/2018 and was cycle 4 on 09/08/2018. On 09/19/2018 he was admitted to [facility] with shortness of breath and hypoxia. His clinical evaluation was consistent with pneumonitis associated with his immunotherapy. He was given high-dose steroid therapy. His clinical course was complicated by left pneumothorax with persistent air leak. He was eventually discharged home on 10/08/2018 with the chest tube in place. He is on 30 mg of prednisone daily. Just prior to discharge, he also was found to have Clostridium difficile colitis, for which he began treatment with oral vancomycin. During follow-up he continued to have severe shortness of breath and limited activity tolerance. He attempted to remove his chest to begin last week, but it had to be reinserted within a couple of hours. His restaging CT scans on 11/13/2018 showed no evidence of recurrent pulmonary embolus. There was a persistent small residual filling defect in the posterior basal segment right lower lobe pulmonary artery branch. There was improvement in the previously noted right upper, middle, and lower lobe pneumonia compared to the 08/27/2018 study. There was evidence of left hemithorax talc pleurodesis and placement of lower third left hemithorax anterior pleural space pigtail catheter. A right hilar lymph node appears stable. There is no evidence of other significant lymphadenopathy. A T5 vertebral body metastatic lesion appeared stable. The abdomen and pelvis shows stable appearance of a mixed density metastatic lesion in the left ilium. There was subcutaneous soft tissue edema noted in the left flank. There were no other significant findings. I had seen him for a follow-up visit on 11/13/2018. He was showing some improvement in his clinical status. At that point he continued monthly denosumab injections for the metastatic bone involvement, but in the absence of any evidence of disease progression, I opted to keep his chemotherapy on hold. In the meantime, he continued follow-up with Dr. Orlando and he was started on diuretic therapy for cor pulmonale. He continued to have a high oxygen requirement. Restaging CT scans from 06/02/2019 showed continued pleural scarring and thickening with volume loss on the right side. There was also pronounced pleural scarring and thickening involving the left lung, and there was thickening of the soft tissues between the ribs and the tip of the scapula on the left side that appeared very worrisome for tumor involvement in the soft tissues. There was pronounced soft tissue thickening and abnormal enhancement of the tissue extending along the left lateral chest wall, possibly related to the previous procedures. Metastatic disease, though, was not excluded. There appear to be a couple of small cysts in the liver. There was some inhomogeneity involving the right finger and the left iliac wing, appearance of which was not significantly changed from the previous PET/CT. With those findings, he continued denosumab injections for the metastatic bone involvement, but he otherwise continued observation/symptomatic management for the lung cancer. Restaging PET/CT on 09/09/2019 showed pronounced increased activity in the pleural spaces of both hemithoraces, unclear as to whether it was due post therapeutic changes or to new spread of tumor. A focus of activity in the rectum was noted to be fairly intense, but unchanged compared to the February study. The bony metastases were noted to have markedly improved. He continued treatment with denosumab at a 3-month interval. A restaging PET/CT on 12/15/2019 showed an area of increased metabolic activity along the left lateral chest wall just inferior to the scapula, very similar in appearance to the prior study. Bilateral talc pleurodesis changes were again noted, also similar to the prior study. A new FDG avid mass was noted within the left lateral limb of the adrenal gland measuring 1.5 cm, SUV 4.9, worrisome for metastatic disease. Also noted was a small lymph node within the aortocaval region in the mid abdomen at the L3 level with mild FDG activity, SUV 4.8, also suspicious for possible metastasis. Robust activity was again noted within the region of the lower rectum. As of his follow-up visit on 12/22/2019 he appeared stable clinically, and we opted to continue with observation/expectant management. At that point I had transitioned his anticoagulation from Lovenox to apixaban. On 02/28/2020 he had presented to the [facility] emergency room with acute onset of weakness in the left arm and hand. He had some transient visual impairment and he also had some stumbling, but the main problem was with his left hand, particularly his fine motor skills. His brain MRI with and without contrast showed restricted diffusion along the central sulcus involving the frontal and parietal lobe and an area of restricted diffusion along the cortex of the right parietal lobe. Multiple small areas of restricted diffusion were noted within the right frontal lobe, bilateral parietal lobes, bilateral occipital lobes, and the bilateral cerebellum. 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 Also noted were enhancing nodules within the bilateral cerebellum, the largest measuring 7 x 4 mm, which were felt to be suggestive of metastatic disease. There was no associated edema. His anticoagulation was changed back to Lovenox, and his symptoms improved with conservative management. I had seen him for a follow-up visit on 03/04/2020. At that point his symptoms had not completely resolved, but they were definitely improving. I was able to review the MRI disc with 1 of the radiologist. One lesion in the lateral left cerebellar hemisphere did appear more prominent and it appeared more suspicious for a metastatic lesion. The other cerebellar lesions were smaller and were felt to be indeterminate. Restaging CT scans of the chest, abdomen, and pelvis on 03/08/2020 showed no change in the pleural calcification versus pleurodesis and there was unchanged sclerosis in the left hilum and left initial tuberosity. An aortocaval lymph node was noted to have decreased in size. However, there was further increase in the size of the left adrenal mass to 3.5 x 2.6 cm compared to 14 mm on the previous study. A 5 mm low-density focus in the right lobe of the liver appeared stable. His repeat brain MRI on 04/04/2020 showed several small enhancing lesions in the right and left cerebellum, superior right frontal and superior right parietal areas which appeared consistent with metastatic disease. There were evolving areas of infarction in the right parietal and right occipital areas with multiple other tiny areas of infarction in the right and left cerebellum, again consistent with embolic infarctions. With those findings, he underwent palliative whole brain radiation. As his CT scans had also shown evidence of what appeared to be isolated disease progression in the right adrenal gland, I had recommended that that site also be treated. He completed radiation on 04/29/2020, both sites to a total dose of 3000 cGy. During that time he had developed new stroke symptoms in the left arm/hand despite being on anticoagulation with Lovenox. At that point I did opt to check his anti-Xa level, and it actually was a little above therapeutic range. He continued Lovenox at the same dosage. His repeat MRI on 06/21/2020 reported a new lesion anteriorly in the frontal lobe region on the right side measuring 1.8 x 2.6 x 2.9 cm. There was a large amount of associated vasogenic edema with slight midline shift estimated at 2 to 3 mm. It was felt that the appearance was most consistent with a new metastatic process. The old lesion was noted to appear basically unchanged. Small focal areas seen previously in the left cerebellum appeared improved. The larger right parietal occipital lesion showed marked improvement. Restaging CT scans of the chest, abdomen, and pelvis on 06/22/2020 showed decreasing size of left adrenal mass with no evidence of new metastatic lesions. With those findings he was started on dexamethasone and he then had neurosurgery consultation with Dr. Nicole in [place]. At least initially, observation was recommended as it was thought that the MRI changes could possibly be due to radiation. I did have him continue dexamethasone, but with the dosage reduced to 2 mg daily. Repeat brain MRI on 07/21/2020 showed slight decrease in size of the large lesion near the sylvian fissure on the right side. Some component of post therapy calcification was suspected. There was still evidence of vasogenic edema involving both anterior and posterior lesions in the right parietal lobe. There were no enhancing lesions identified in the cerebellum, brainstem, temporal lobes, or in the left side of the brain. Overall the appearance was slightly improved. There was no indication of any worsening. He is seen for a followup visit. He has been feeling a little better generally. He still has very limited activity, but he says his energy is better now than it was. He says he is not sleeping as much. He does not complain of headache. He still has some numbness in his right foot. He has only slight residual weakness in the left hand. He has good appetite. He has not had fever. He has just occasional sweating at night. He has not had sore mouth or throat. His breathing has been pretty good. He does not complain of cough and he has not been having chest pain. He has no GI or complaints. He occasionally has pain in his back. He has no other joint or bone pain. Medications: Citalopram Hydrobromide 1 Tablet (of 20 mg) Oral daily, Desmopressin Acetate 1 spray(s) (of 1.5 mg/mL) Solution Nasal b.i.d., Dexamethasone 2 Tablet (of 1 mg) Oral daily, Lasix 1 Tablet (of 40 mg) Oral daily PRN, Lovenox 120 mg (of 300 mg/3ml) Injection daily, Morphine Sulfate ER 1 Tablet (of 15 mg) Tablet, controlled release Oral q 12 hours, oxygen 3 L Aerosol at bedtime, Potassium 1 (99 mg) Tablet Oral PRN, Rosuvastatin Calcium 1 (10 mg) Tablet Oral daily Allergies: No Known Allergies. Vital Signs: Performed on Jul 25, 2020 13:36 Height - 71.00 in Weight - 185.4 lbs (HIGH) BSA - 2.04 sq.m BMI - 25.86 Temperature - 98.9 F (HIGH) Pulse - 75 /min Respiration - 18 /min BP - 134/90 mm(hg) O2 Sat - 98 % Pain - 0 Fatigue - 0 Physical Examination: Constitutional - He appears somewhat weak generally. He appears mildly cushinoid, Eyes - Sclerae nonicteric. Conjunctivae clear, ENMT - No lesions noted in the oral cavity, Hematologic/Lymphatic - No cervical, clavicular, or axillary adenopathy, Respiratory - Lungs sound clear with pretty good air movement bilaterally, Cardiovascular - Heart rhythm is regular. There is no murmur, gallop, or rub noted, Abdomen - Soft. Liver and spleen are not enlarged. There is no abdominal mass or ascites noted and there is no inguinal adenopathy, Extremities - No edema, Neurologic - No focal deficits noted. Lab/Imaging: Test performed on Jun 13, 2020 08:41 Sodium 138 mmol/L Potassium 4.3 mmol/L Chloride 103 mmol/L CO2 27 mmol/L Anion Gap 12.3 BUN 7 mg/dL Creatinine 0.8 mg/dL Cr Clearance (Est) 115.0700 mL/min eGFR 98.9 mL/min Glucose 106 mg/dL Osmolality - Calculated 284 mOsm/kg Calcium 9.3 mg/dL Protein, Total 6.3 g/dL Albumin 3.9 g/dL Globulin 2.4 g/dL Bilirubin, Total 0.8 mg/dL ALT (SGPT) 20 U/L AST (SGOT) 15 U/L Alkaline Phosphatase 68 IU/L WBC 4.7 10 3/uL RBC 4.65 10 6/uL HGB 13.8 g/dL HCT 44.0 % MCV 94.6 fL MCH 29.7 pg MCHC 31.4 g/dL RDW 13.2 % Platelet Count 211 10 3/cmm MPV 10.0 fL Neutrophils 3.04 10 3/uL Lymphocytes 0.9 10 3/uL Monocytes 0.6 10 3/uL Eosinophils 0.1 10 3/uL Basophils 0.0 10 3/uL Neutrophil % 65.4 % Lymphocyte % 19.7 % Monocyte % 12.4 % Eosinophil % 1.7 % Basophils % 0.4 % NRBC % 0 % Problem List: 1. Adenocarcinoma (bronchoalveolar carcinoma) involving the upper lobe of the right lung. His disease was stage IA (T1a, N0, M0) at initial diagnosis in 2012, but with subsequent progression to stage IV disease (M1b) with evidence of recurrence in the right lung and with multiple sites of metastatic bone involvement, including biopsy-proven metastatic adenocarcinoma involving the left ilium in April 2018. 2. 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 3. He developed severe pneumonitis while on immunotherapy with pembrolizumab. 4. COPD. 5. Hyperlipidemia. Problems Addressed with this Encounter and Plan: 1. Adenocarcinoma (bronchoalveolar carcinoma) involving the upper lobe of the right lung. His disease was stage IA (T1a, N0, M0) at initial diagnosis in 2012. His initial treatment included VATS with a bi-segmentectomy of the right upper lobe. The procedure also included resection of right upper lobe ruptured bleb and pleurodesis. In 2018 he had progression to stage IV disease (M1b) with evidence of recurrence in the right lung and with multiple sites of metastatic bone involvement, including biopsy-proven metastatic adenocarcinoma involving the left ilium. On further pathologic analysis his tumor was found to be negative for EGFR mutations and for the ALK and ROS 1 gene rearrangements. A PD-L1 immunostain showed low expression at less than 5%. Given those findings, he began systemic therapy with carboplatin/pemetrexed chemotherapy in combination with pembrolizumab. 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 During subsequent follow-up he had has had evidence of further metastatic involvement in the brain and in the left adrenal gland. He was given palliative radiation to both sites, completed on 04/29/2020. His repeat brain MRI on 06/20/2020 showed a new lesion anteriorly in the frontal lobe region on the right side measuring 1.8 x 2.6 x 2.9 cm. There was a large amount of associated vasogenic edema, and it was felt that the appearance was most consistent with a new metastatic process. He had neurosurgery consultation with Dr. Nicole in [place], and it was recommended that he initially continue observation, as it was felt that the changes could possibly be due to radiation. His current MRI shows slight improvement. He continues to have fairly marginal performance status, but he is showing some improvement clinically. He has no new INTELLIGENCE SPECIALIST symptoms or other evidence clinically for disease progression. As such, he will remain on close observation. I will have him decrease dexamethasone to 1 mg daily. I will review his MRI studies with radiologist and I will determine then how soon it needs to be repeated. I will tentatively plan a follow-up visit with him in 1 month. 2. Metastatic bone involvement. He has received palliative radiation to the area of metastatic involvement in the left ilium and he also has been on treatment with denosumab. Currently is being administered at 3-month intervals. 3. 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 The latter occurred while on anticoagulation with apixaban, and his anticoagulation was subsequently transitioned back to Lovenox. Since then there has been no evidence for new strokes, and he will continue the Lovenox at the same dosage. Signed By: Gil Castle M.D. <<Signature on File>>
== END 2020-07-25 13:26 | disposition home or self-care (01) ==
LOC: ONCMED 13:27
PROVIDERS: PCP Family Medicine; Visit Provider Internal Medicine Medical Oncology
DX: C34.11 Malignant neoplasm of upper lobe, right bronchus or lung (principal); C79.51 Secondary malignant neoplasm of bone; C79.31 Secondary malignant neoplasm of brain; C74.92 Malignant neoplasm of unspecified part of left adrenal gland; R60.0 Localized edema; Z90.2 Acquired absence of lung [part of]; Z79.899 Other long term (current) drug therapy; Z92.3 Personal history of irradiation; Z86.73 Personal history of transient ischemic attack (TIA), and cerebral infarction without residual deficits; Z86.718 Personal history of other venous thrombosis and embolism; Z86.711 Personal history of pulmonary embolism; Z79.01 Long term (current) use of anticoagulants
CPT/HCPCS: 99214

== ENCOUNTER 2020-08-22 09:43 | Outpatient (CLI) | payer BC, SELFPAY ==
--- NOTE | 2020-08-23 07:08 | ONC FU_ITS ---
Dr. Castle Patient Follow-Up Note Patient: Gabriel Yanez Unit #: [id number]: [id number] Dicatated By: Gil Castle M.D.Date of Visit:Aug 22, 2020 Onc Med Follow-up/Prog Note Chief Complaint: Lung cancer. 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 His disease was stage IA (T1a, N), M0) at initial diagnosis in 2012, but with subsequent progression to stage IV ( M1b). He had presented with a spontaneous pneumothorax and a right upper lobe nodule in 2012. On 02/28/2013 because of persistent air leak he required VATS with a bi-segmentectomy of the right upper lobe, resection of right upper lobe ruptured bleb, and pleurodesis. No thoracic lymphadenectomy was performed. His surgical pathology showed a 1.5 cm minimally invasive adenocarcinoma with negative margins. Clinically there was no distant or regional metastatic disease reported. Thus, his disease was stage IA (T1a, N0, M0), and he was followed expectantly. His surveillance CT of the chest on 09/01/2014 showed post operative changes in the right upper lobe with stable area of nodular thickening and scarring. He was first seen by Dr. Perez on 01/10/2015. His restaging CT of the chest on 03/22/2015 was unchanged. Further restaging CT on 09/06/2015 showed scarring, but no evidence of metastatic disease. He continued on observation/expectant management. He has underlying COPD and dyslipidemia. He stopped smoking in the . In the last 2-3 years he had chronic shortness of breath, oxygen dependence at night. He had screening colonoscopy on 04/17/2012. The only finding was a hyperplastic polyp. INTERIM HISTORY: His surveillance CT scans as of March 2017 showed no evidence of recurrence. The latter study did show increased nodular thickening within the posterior right lateral pleura which was noted to be mildly increased from previous studies, measuring up to 9.[address] on 10/02/2017 showed pronounced volume loss on the right side with pleural thickening and scarring. There was noted to be a small focus of trapped lung low on the right side. There was essentially no change compared to the March [address] study[address] on 04/08/2018 showed pleural-based density in the posterior upper right chest measuring 20 x 11 mm compared to 8 x 12 mm on the study from September 2017. A pleural-based density in the medial mid right chest increased to 17 x 16 mm compared to 8 x 9 mm on the previous study. A pleural-based density on the medial lower right chest also appeared more prominent. The findings were felt to be suspicious for pleural-based metastatic disease. He had further evaluation with restaging PET/CT on 04/28/2018. There was noted to be pronounced activity throughout the right hemithorax, felt to be associated with inflammation in the pleura related to the pleurodesis or VATS. It was noted to have calcifications associated with it. A 2 cm diameter pleural based lesion was thought to possibly represent early tumor involvement. An abnormality in a left anterior rib was felt to be suspicious for rib fracture. A focus involving a posterior rib on the right side was thought be consistent with early bone metastasis or inflammation or fracture. There were lesions noted in the pelvic bone and right femur which were felt to be consistent with metastatic bone lesions. MRI of the brain on 05/06/2018 showed rather pronounced deep white matter disease felt to possibly represent a demyelinating process versus pronounced small vessel ischemic changes. It did not appear to be due to metastatic disease. Bone scan on 05/08/2018 showed multiple areas of abnormal uptake involving the left hemipelvis, right femur, multiple ribs, thoracic spine, and likely a small focus in the cervical spine. On 05/22/[address] directed needle biopsy of the lesion in the left ilium. Pathology was consistent with metastatic adenocarcinoma. The tumor cells were positive for CK7, TTF-1, and Napsin A. He was seen for a follow-up visit on 05/29/2018. At that point he did appear to be having significant bone pain associated with the metastatic involvement. As it did include weightbearing areas, I opted to refer him for palliative radiation. In the meantime, I also requested additional pathologic studies, including a PD-L1 immunostain, which showed low PD-L1 expression at 5%. In addition, the tumor cells were tested and found to be negative for EGFR mutations and for the ALK and ROS1 gene rearrangements. He was seen here on 07/02/2018 to initiate chemotherapy with pembrolizumab in combination with carboplatin and pemetrexed. He had multiple new complaints including low-grade fever, increased shortness of breath, and new pain and swelling in both legs. He was found to have extensive deep vein thrombosis in both legs and very extensive pulmonary emboli bilaterally. He began anticoagulation with Lovenox, and he was observed overnight in the hospital. He then returned on 07/08/2018 to begin cycle 1 of carboplatin/pemetrexed in combination with pembrolizumab. He also started denosumab injections for the metastatic bone involvement. He tolerated the chemotherapy well, and he was able to continue with cycle 2 of carboplatin/Alimta/pembrolizumab on 07/29/2018. During that time his anticoagulation was transitioned to a apixaban. He continued to tolerate the chemotherapy with acceptable toxicity. He proceeded with cycle 3 on 08/19/2018 and was cycle 4 on 09/08/2018. On 09/19/2018 he was admitted to [facility] with shortness of breath and hypoxia. His clinical evaluation was consistent with pneumonitis associated with his immunotherapy. He was given high-dose steroid therapy. His clinical course was complicated by left pneumothorax with persistent air leak. He was eventually discharged home on 10/08/2018 with the chest tube in place. He is on 30 mg of prednisone daily. Just prior to discharge, he also was found to have Clostridium difficile colitis, for which he began treatment with oral vancomycin. During follow-up he continued to have severe shortness of breath and limited activity tolerance. He attempted to remove his chest to begin last week, but it had to be reinserted within a couple of hours. His restaging CT scans on 11/13/2018 showed no evidence of recurrent pulmonary embolus. There was a persistent small residual filling defect in the posterior basal segment right lower lobe pulmonary artery branch. There was improvement in the previously noted right upper, middle, and lower lobe pneumonia compared to the 08/27/2018 study. There was evidence of left hemithorax talc pleurodesis and placement of lower third left hemithorax anterior pleural space pigtail catheter. A right hilar lymph node appears stable. There is no evidence of other significant lymphadenopathy. A T5 vertebral body metastatic lesion appeared stable. The abdomen and pelvis shows stable appearance of a mixed density metastatic lesion in the left ilium. There was subcutaneous soft tissue edema noted in the left flank. There were no other significant findings. I had seen him for a follow-up visit on 11/13/2018. He was showing some improvement in his clinical status. At that point he continued monthly denosumab injections for the metastatic bone involvement, but in the absence of any evidence of disease progression, I opted to keep his chemotherapy on hold. In the meantime, he continued follow-up with Dr. Orlando and he was started on diuretic therapy for cor pulmonale. He continued to have a high oxygen requirement. Restaging CT scans from 06/02/2019 showed continued pleural scarring and thickening with volume loss on the right side. There was also pronounced pleural scarring and thickening involving the left lung, and there was thickening of the soft tissues between the ribs and the tip of the scapula on the left side that appeared very worrisome for tumor involvement in the soft tissues. There was pronounced soft tissue thickening and abnormal enhancement of the tissue extending along the left lateral chest wall, possibly related to the previous procedures. Metastatic disease, though, was not excluded. There appear to be a couple of small cysts in the liver. There was some inhomogeneity involving the right finger and the left iliac wing, appearance of which was not significantly changed from the previous PET/CT. With those findings, he continued denosumab injections for the metastatic bone involvement, but he otherwise continued observation/symptomatic management for the lung cancer. Restaging PET/CT on 09/09/2019 showed pronounced increased activity in the pleural spaces of both hemithoraces, unclear as to whether it was due post therapeutic changes or to new spread of tumor. A focus of activity in the rectum was noted to be fairly intense, but unchanged compared to the February study. The bony metastases were noted to have markedly improved. He continued treatment with denosumab at a 3-month interval. A restaging PET/CT on 12/15/2019 showed an area of increased metabolic activity along the left lateral chest wall just inferior to the scapula, very similar in appearance to the prior study. Bilateral talc pleurodesis changes were again noted, also similar to the prior study. A new FDG avid mass was noted within the left lateral limb of the adrenal gland measuring 1.5 cm, SUV 4.9, worrisome for metastatic disease. Also noted was a small lymph node within the aortocaval region in the mid abdomen at the L3 level with mild FDG activity, SUV 4.8, also suspicious for possible metastasis. Robust activity was again noted within the region of the lower rectum. As of his follow-up visit on 12/22/2019 he appeared stable clinically, and we opted to continue with observation/expectant management. At that point I had transitioned his anticoagulation from Lovenox to apixaban. On 02/28/2020 he had presented to the [facility] emergency room with acute onset of weakness in the left arm and hand. He had some transient visual impairment and he also had some stumbling, but the main problem was with his left hand, particularly his fine motor skills. His brain MRI with and without contrast showed restricted diffusion along the central sulcus involving the frontal and parietal lobe and an area of restricted diffusion along the cortex of the right parietal lobe. Multiple small areas of restricted diffusion were noted within the right frontal lobe, bilateral parietal lobes, bilateral occipital lobes, and the bilateral cerebellum. 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 Also noted were enhancing nodules within the bilateral cerebellum, the largest measuring 7 x 4 mm, which were felt to be suggestive of metastatic disease. There was no associated edema. His anticoagulation was changed back to Lovenox, and his symptoms improved with conservative management. I had seen him for a follow-up visit on 03/04/2020. At that point his symptoms had not completely resolved, but they were definitely improving. I was able to review the MRI disc with 1 of the radiologist. One lesion in the lateral left cerebellar hemisphere did appear more prominent and it appeared more suspicious for a metastatic lesion. The other cerebellar lesions were smaller and were felt to be indeterminate. Restaging CT scans of the chest, abdomen, and pelvis on 03/08/2020 showed no change in the pleural calcification versus pleurodesis and there was unchanged sclerosis in the left hilum and left initial tuberosity. An aortocaval lymph node was noted to have decreased in size. However, there was further increase in the size of the left adrenal mass to 3.5 x 2.6 cm compared to 14 mm on the previous study. A 5 mm low-density focus in the right lobe of the liver appeared stable. His repeat brain MRI on 04/04/2020 showed several small enhancing lesions in the right and left cerebellum, superior right frontal and superior right parietal areas which appeared consistent with metastatic disease. There were evolving areas of infarction in the right parietal and right occipital areas with multiple other tiny areas of infarction in the right and left cerebellum, again consistent with embolic infarctions. With those findings, he underwent palliative whole brain radiation. As his CT scans had also shown evidence of what appeared to be isolated disease progression in the right adrenal gland, I had recommended that that site also be treated. He completed radiation on 04/29/2020, both sites to a total dose of 3000 cGy. During that time he had developed new stroke symptoms in the left arm/hand despite being on anticoagulation with Lovenox. At that point I did opt to check his anti-Xa level, and it actually was a little above therapeutic range. He continued Lovenox at the same dosage. His repeat MRI on 06/21/2020 reported a new lesion anteriorly in the frontal lobe region on the right side measuring 1.8 x 2.6 x 2.9 cm. There was a large amount of associated vasogenic edema with slight midline shift estimated at 2 to 3 mm. It was felt that the appearance was most consistent with a new metastatic process. The old lesion was noted to appear basically unchanged. Small focal areas seen previously in the left cerebellum appeared improved. The larger right parietal occipital lesion showed marked improvement. Restaging CT scans of the chest, abdomen, and pelvis on 06/22/2020 showed decreasing size of left adrenal mass with no evidence of new metastatic lesions. With those findings he was started on dexamethasone and he then had neurosurgery consultation with Dr. Nicole in [place]. At least initially, observation was recommended as it was thought that the MRI changes could possibly be due to radiation. I did have him continue dexamethasone, but with the dosage reduced to 2 mg daily. Repeat brain MRI on 07/21/2020 showed slight decrease in size of the large lesion near the sylvian fissure on the right side. Some component of post therapy calcification was suspected. There was still evidence of vasogenic edema involving both anterior and posterior lesions in the right parietal lobe. There were no enhancing lesions identified in the cerebellum, brainstem, temporal lobes, or in the left side of the brain. Overall the appearance was slightly improved. There was no indication of any worsening. At his follow-up visit on 07/25/2020 he continued to have fairly marginal performance status, but he was showing some improvement clinically. At that point his dexamethasone dosage was decreased to 1 mg daily, and it was subsequently tapered further to 0.5 mg daily. He is seen for a followup visit. He has not been feeling good. He has been pretty tired and he has very limited activity. ECOG score is 3. His says that his appetite has been way down. His weight, though, appears stable. He does not have fever or night sweats. He has been having pain in his lower back area. It tends to be worse when he is bending over, and he does get relief with rest. He is short of breath after activity. He does not complain of cough and he has not been having chest pain. He has no GI or complaints. He has no other joint or bone pain. He does not complain of headache. He does have issues with balance. He has no numbness/paresthesia or other focal neurologic symptoms. Medications: Citalopram Hydrobromide 1 Tablet (of 20 mg) Oral daily, Desmopressin Acetate 1 spray(s) (of 1.5 mg/mL) Solution Nasal b.i.d., Dexamethasone 1 Tablet (of 0.5 mg) Oral daily, Lasix 1 Tablet (of 40 mg) Oral daily PRN, Lovenox 120 mg (of 300 mg/3ml) Injection daily, Morphine Sulfate ER 1 Tablet (of 15 mg) Tablet, controlled release Oral q 12 hours, oxygen 3 L Aerosol at bedtime, Potassium 1 (99 mg) Tablet Oral PRN, Rosuvastatin Calcium 1 (10 mg) Tablet Oral daily Allergies: No Known Allergies. Vital Signs: Performed on Aug 22, 2020 09:51 Height - 71.00 in Weight - 183.2 lbs (LOW) BSA - 2.03 sq.m BMI - 25.55 Temperature - 97.9 F (LOW) Pulse - 77 /min Respiration - 18 /min BP - 124/87 mm(hg) O2 Sat - 96 % Pain - 2 Fatigue - 8 Physical Examination: Constitutional - He appears generally weak and he appears moderately cushingoid with soft tissue swelling around the face and neck, Eyes - Sclerae nonicteric. Conjunctivae clear, ENMT - No lesions noted in the oral cavity, Hematologic/Lymphatic - No cervical, clavicular, or axillary adenopathy, Respiratory - Lungs sound clear, Cardiovascular - Heart rhythm is regular. There is no murmur, gallop, or rub noted, Abdomen - Soft. Liver and spleen are not enlarged. There is no abdominal mass or ascites noted and there is no inguinal adenopathy, Extremities - No lower extremity edema, Neurologic - No focal deficits noted. Lab/Imaging: His repeat brain MRI on 08/18/2020 showed continued improvement with only a small focus of enhancing tissue noted within the more anterior lesion, currently measuring 2.2 cm in greatest diameter. There was still noted to be associated edema in the anterior lesion. The more posterior lesion has essentially no enhancing tissue around it. X-rays of the lumbosacral spine and pelvis show degenerative changes and rotoscoliosis, there are no metastatic lesions noted in the spine. There was noted to be in homogeneity of the left SI joint and the left iliac wing, metastatic lesions not excluded. Problem List: 1. Adenocarcinoma (bronchoalveolar carcinoma) involving the upper lobe of the right lung. His disease was stage IA (T1a, N0, M0) at initial diagnosis in 2012, but with subsequent progression to stage IV disease (M1b) with evidence of recurrence in the right lung and with multiple sites of metastatic bone involvement, including biopsy-proven metastatic adenocarcinoma involving the left ilium in April 2018. 2. 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 3. He developed severe pneumonitis while on immunotherapy with pembrolizumab. 4. COPD. 5. Hyperlipidemia. Problems Addressed with this Encounter and Plan: 1. Adenocarcinoma (bronchoalveolar carcinoma) involving the upper lobe of the right lung. His disease was stage IA (T1a, N0, M0) at initial diagnosis in 2012. His initial treatment included VATS with a bi-segmentectomy of the right upper lobe. The procedure also included resection of right upper lobe ruptured bleb and pleurodesis. In 2017 he had progression to stage IV disease (M1b) with evidence of recurrence in the right lung and with multiple sites of metastatic bone involvement, including biopsy-proven metastatic adenocarcinoma involving the left ilium. On further pathologic analysis his tumor was found to be negative for EGFR mutations and for the ALK and ROS 1 gene rearrangements. A PD-L1 immunostain showed low expression at less than 5%. Given those findings, he began systemic therapy with carboplatin/pemetrexed chemotherapy in combination with pembrolizumab. 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 During subsequent follow-up he had has had evidence of further metastatic involvement in the brain and in the left adrenal gland. He was given palliative radiation to both sites, completed on 04/29/2020. His repeat brain MRI on 06/20/2020 showed a new lesion anteriorly in the frontal lobe region on the right side measuring 1.8 x 2.6 x 2.9 cm. There was a large amount of associated vasogenic edema, and it was felt that the appearance was most consistent with a new metastatic process. He had neurosurgery consultation with Dr. Nicole in [place], and it was recommended that he initially continue observation, as it was felt that the changes could possibly be due to radiation. His current MRI shows slight improvement. He continues to have fairly marginal performance status, but he is showing some improvement clinically. He has no new [employer] symptoms or other evidence clinically for disease progression. He has been followed on close observation. His current MRI shows some slight improvement. There has been some decline, though, and his overall clinical status. It is uncertain to what extent that may be related to the underlying malignancy or possibly to tapering down the dexamethasone dosage. His steroid management is problematic, as he does have significant cushingoid side effects. For now he will continue the dexamethasone at 0.5 mg daily. I will review the MRI with the radiologist. I will tentatively plan a follow-up visit in 1 month. 2. Metastatic bone involvement. He has received palliative radiation to the area of metastatic involvement in the left ilium and he also has been on treatment with denosumab, administered at 3-month intervals. Since his last visit he has been having pain in the low back area. His x-rays show evidence of metastatic lesions in the pelvis, which I suspect is not new. He is, though, at significant risk, and he will now be scheduled for MRI of the lumbar spine. He will have further evaluation as indicated. 3. 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 The latter occurred while on anticoagulation with apixaban, and his anticoagulation was subsequently transitioned back to Lovenox. Since then there has been no evidence for new strokes, and he will continue the Lovenox at the same dosage. Signed By: Gil Castle M.D. <<Signature on File>>
== END 2020-08-22 09:44 | disposition home or self-care (01) ==
PROVIDERS: PCP Family Medicine; Visit Provider Internal Medicine Medical Oncology
DX: C34.11 Malignant neoplasm of upper lobe, right bronchus or lung (principal); C79.51 Secondary malignant neoplasm of bone; C79.31 Secondary malignant neoplasm of brain; C79.72 Secondary malignant neoplasm of left adrenal gland; E24.2 Drug-induced Cushing's syndrome; T38.0X5A Adverse effect of glucocorticoids and synthetic analogues, initial encounter; M54.5 Low back pain; Z79.52 Long term (current) use of systemic steroids; Z86.718 Personal history of other venous thrombosis and embolism; Z79.01 Long term (current) use of anticoagulants; Z86.711 Personal history of pulmonary embolism
CPT/HCPCS: 99214

== ENCOUNTER 2020-09-12 05:59 | Outpatient (CLI) | payer BC, SELFPAY ==
[2020-09-12] MEDS: denosumab 120 mg SDV SUBCUT (13:25)
--- NOTE | 2020-09-12 18:47 | ONC FU_ITS ---
Dr. Castle Patient Follow-Up Note Patient: Gabriel Yanez Unit #: [id number]: [id number] Dicatated By: Gil Castle M.D.Date of Visit:Sep 12, 2020 Onc Med Follow-up/Prog Note Chief Complaint: Lung cancer. 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 His disease was stage IA (T1a, N), M0) at initial diagnosis in 2012, but with subsequent progression to stage IV ( M1b). He had presented with a spontaneous pneumothorax and a right upper lobe nodule in 2012. On 02/28/2013 because of persistent air leak he required VATS with a bi-segmentectomy of the right upper lobe, resection of right upper lobe ruptured bleb, and pleurodesis. No thoracic lymphadenectomy was performed. His surgical pathology showed a 1.5 cm minimally invasive adenocarcinoma with negative margins. Clinically there was no distant or regional metastatic disease reported. Thus, his disease was stage IA (T1a, N0, M0), and he was followed expectantly. His surveillance CT of the chest on 09/01/2014 showed post operative changes in the right upper lobe with stable area of nodular thickening and scarring. He was first seen by Dr. Perez on 01/10/2015. His restaging CT of the chest on 03/22/2015 was unchanged. Further restaging CT on 09/06/2015 showed scarring, but no evidence of metastatic disease. He continued on observation/expectant management. He has underlying COPD and dyslipidemia. He stopped smoking in the . In the last 2-3 years he had chronic shortness of breath, oxygen dependence at night. He had screening colonoscopy on 04/17/2012. The only finding was a hyperplastic polyp. INTERIM HISTORY: His surveillance CT scans as of March 2017 showed no evidence of recurrence. The latter study did show increased nodular thickening within the posterior right lateral pleura which was noted to be mildly increased from previous studies, measuring up to 9.[address] on 10/02/2017 showed pronounced volume loss on the right side with pleural thickening and scarring. There was noted to be a small focus of trapped lung low on the right side. There was essentially no change compared to the March [address] study[address] on 04/08/2018 showed pleural-based density in the posterior upper right chest measuring 20 x 11 mm compared to 8 x 12 mm on the study from September 2017. A pleural-based density in the medial mid right chest increased to 17 x 16 mm compared to 8 x 9 mm on the previous study. A pleural-based density on the medial lower right chest also appeared more prominent. The findings were felt to be suspicious for pleural-based metastatic disease. He had further evaluation with restaging PET/CT on 04/28/2018. There was noted to be pronounced activity throughout the right hemithorax, felt to be associated with inflammation in the pleura related to the pleurodesis or VATS. It was noted to have calcifications associated with it. A 2 cm diameter pleural based lesion was thought to possibly represent early tumor involvement. An abnormality in a left anterior rib was felt to be suspicious for rib fracture. A focus involving a posterior rib on the right side was thought be consistent with early bone metastasis or inflammation or fracture. There were lesions noted in the pelvic bone and right femur which were felt to be consistent with metastatic bone lesions. MRI of the brain on 05/06/2018 showed rather pronounced deep white matter disease felt to possibly represent a demyelinating process versus pronounced small vessel ischemic changes. It did not appear to be due to metastatic disease. Bone scan on 05/08/2018 showed multiple areas of abnormal uptake involving the left hemipelvis, right femur, multiple ribs, thoracic spine, and likely a small focus in the cervical spine. On 05/22/[address] directed needle biopsy of the lesion in the left ilium. Pathology was consistent with metastatic adenocarcinoma. The tumor cells were positive for CK7, TTF-1, and Napsin A. He was seen for a follow-up visit on 05/29/2018. At that point he did appear to be having significant bone pain associated with the metastatic involvement. As it did include weightbearing areas, I opted to refer him for palliative radiation. In the meantime, I also requested additional pathologic studies, including a PD-L1 immunostain, which showed low PD-L1 expression at 5%. In addition, the tumor cells were tested and found to be negative for EGFR mutations and for the ALK and ROS1 gene rearrangements. He was seen here on 07/02/2018 to initiate chemotherapy with pembrolizumab in combination with carboplatin and pemetrexed. He had multiple new complaints including low-grade fever, increased shortness of breath, and new pain and swelling in both legs. He was found to have extensive deep vein thrombosis in both legs and very extensive pulmonary emboli bilaterally. He began anticoagulation with Lovenox, and he was observed overnight in the hospital. He then returned on 07/08/2018 to begin cycle 1 of carboplatin/pemetrexed in combination with pembrolizumab. He also started denosumab injections for the metastatic bone involvement. He tolerated the chemotherapy well, and he was able to continue with cycle 2 of carboplatin/Alimta/pembrolizumab on 07/29/2018. During that time his anticoagulation was transitioned to a apixaban. He continued to tolerate the chemotherapy with acceptable toxicity. He proceeded with cycle 3 on 08/19/2018 and was cycle 4 on 09/08/2018. On 09/19/2018 he was admitted to [facility] with shortness of breath and hypoxia. His clinical evaluation was consistent with pneumonitis associated with his immunotherapy. He was given high-dose steroid therapy. His clinical course was complicated by left pneumothorax with persistent air leak. He was eventually discharged home on 10/08/2018 with the chest tube in place. He is on 30 mg of prednisone daily. Just prior to discharge, he also was found to have Clostridium difficile colitis, for which he began treatment with oral vancomycin. During follow-up he continued to have severe shortness of breath and limited activity tolerance. He attempted to remove his chest to begin last week, but it had to be reinserted within a couple of hours. His restaging CT scans on 11/13/2018 showed no evidence of recurrent pulmonary embolus. There was a persistent small residual filling defect in the posterior basal segment right lower lobe pulmonary artery branch. There was improvement in the previously noted right upper, middle, and lower lobe pneumonia compared to the 08/27/2018 study. There was evidence of left hemithorax talc pleurodesis and placement of lower third left hemithorax anterior pleural space pigtail catheter. A right hilar lymph node appears stable. There is no evidence of other significant lymphadenopathy. A T5 vertebral body metastatic lesion appeared stable. The abdomen and pelvis shows stable appearance of a mixed density metastatic lesion in the left ilium. There was subcutaneous soft tissue edema noted in the left flank. There were no other significant findings. I had seen him for a follow-up visit on 11/13/2018. He was showing some improvement in his clinical status. At that point he continued monthly denosumab injections for the metastatic bone involvement, but in the absence of any evidence of disease progression, I opted to keep his chemotherapy on hold. In the meantime, he continued follow-up with Dr. Orlando and he was started on diuretic therapy for cor pulmonale. He continued to have a high oxygen requirement. Restaging CT scans from 06/02/2019 showed continued pleural scarring and thickening with volume loss on the right side. There was also pronounced pleural scarring and thickening involving the left lung, and there was thickening of the soft tissues between the ribs and the tip of the scapula on the left side that appeared very worrisome for tumor involvement in the soft tissues. There was pronounced soft tissue thickening and abnormal enhancement of the tissue extending along the left lateral chest wall, possibly related to the previous procedures. Metastatic disease, though, was not excluded. There appear to be a couple of small cysts in the liver. There was some inhomogeneity involving the right finger and the left iliac wing, appearance of which was not significantly changed from the previous PET/CT. With those findings, he continued denosumab injections for the metastatic bone involvement, but he otherwise continued observation/symptomatic management for the lung cancer. Restaging PET/CT on 09/09/2019 showed pronounced increased activity in the pleural spaces of both hemithoraces, unclear as to whether it was due post therapeutic changes or to new spread of tumor. A focus of activity in the rectum was noted to be fairly intense, but unchanged compared to the February study. The bony metastases were noted to have markedly improved. He continued treatment with denosumab at a 3-month interval. A restaging PET/CT on 12/15/2019 showed an area of increased metabolic activity along the left lateral chest wall just inferior to the scapula, very similar in appearance to the prior study. Bilateral talc pleurodesis changes were again noted, also similar to the prior study. A new FDG avid mass was noted within the left lateral limb of the adrenal gland measuring 1.5 cm, SUV 4.9, worrisome for metastatic disease. Also noted was a small lymph node within the aortocaval region in the mid abdomen at the L3 level with mild FDG activity, SUV 4.8, also suspicious for possible metastasis. Robust activity was again noted within the region of the lower rectum. As of his follow-up visit on 12/22/2019 he appeared stable clinically, and we opted to continue with observation/expectant management. At that point I had transitioned his anticoagulation from Lovenox to apixaban. On 02/28/2020 he had presented to the [facility] emergency room with acute onset of weakness in the left arm and hand. He had some transient visual impairment and he also had some stumbling, but the main problem was with his left hand, particularly his fine motor skills. His brain MRI with and without contrast showed restricted diffusion along the central sulcus involving the frontal and parietal lobe and an area of restricted diffusion along the cortex of the right parietal lobe. Multiple small areas of restricted diffusion were noted within the right frontal lobe, bilateral parietal lobes, bilateral occipital lobes, and the bilateral cerebellum. 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 Also noted were enhancing nodules within the bilateral cerebellum, the largest measuring 7 x 4 mm, which were felt to be suggestive of metastatic disease. There was no associated edema. His anticoagulation was changed back to Lovenox, and his symptoms improved with conservative management. I had seen him for a follow-up visit on 03/04/2020. At that point his symptoms had not completely resolved, but they were definitely improving. I was able to review the MRI disc with 1 of the radiologist. One lesion in the lateral left cerebellar hemisphere did appear more prominent and it appeared more suspicious for a metastatic lesion. The other cerebellar lesions were smaller and were felt to be indeterminate. Restaging CT scans of the chest, abdomen, and pelvis on 03/08/2020 showed no change in the pleural calcification versus pleurodesis and there was unchanged sclerosis in the left hilum and left initial tuberosity. An aortocaval lymph node was noted to have decreased in size. However, there was further increase in the size of the left adrenal mass to 3.5 x 2.6 cm compared to 14 mm on the previous study. A 5 mm low-density focus in the right lobe of the liver appeared stable. His repeat brain MRI on 04/04/2020 showed several small enhancing lesions in the right and left cerebellum, superior right frontal and superior right parietal areas which appeared consistent with metastatic disease. There were evolving areas of infarction in the right parietal and right occipital areas with multiple other tiny areas of infarction in the right and left cerebellum, again consistent with embolic infarctions. With those findings, he underwent palliative whole brain radiation. As his CT scans had also shown evidence of what appeared to be isolated disease progression in the right adrenal gland, I had recommended that that site also be treated. He completed radiation on 04/29/2020, both sites to a total dose of 3000 cGy. During that time he had developed new stroke symptoms in the left arm/hand despite being on anticoagulation with Lovenox. At that point I did opt to check his anti-Xa level, and it actually was a little above therapeutic range. He continued Lovenox at the same dosage. His repeat MRI on 06/21/2020 reported a new lesion anteriorly in the frontal lobe region on the right side measuring 1.8 x 2.6 x 2.9 cm. There was a large amount of associated vasogenic edema with slight midline shift estimated at 2 to 3 mm. It was felt that the appearance was most consistent with a new metastatic process. The old lesion was noted to appear basically unchanged. Small focal areas seen previously in the left cerebellum appeared improved. The larger right parietal occipital lesion showed marked improvement. Restaging CT scans of the chest, abdomen, and pelvis on 06/22/2020 showed decreasing size of left adrenal mass with no evidence of new metastatic lesions. With those findings he was started on dexamethasone and he then had neurosurgery consultation with Dr. Nicole in [place]. At least initially, observation was recommended as it was thought that the MRI changes could possibly be due to radiation. I did have him continue dexamethasone, but with the dosage reduced to 2 mg daily. Repeat brain MRI on 07/21/2020 showed slight decrease in size of the large lesion near the sylvian fissure on the right side. Some component of post therapy calcification was suspected. There was still evidence of vasogenic edema involving both anterior and posterior lesions in the right parietal lobe. There were no enhancing lesions identified in the cerebellum, brainstem, temporal lobes, or in the left side of the brain. Overall the appearance was slightly improved. There was no indication of any worsening. At his follow-up visit on 07/25/2020 he continued to have fairly marginal performance status, but he was showing some improvement clinically. At that point his dexamethasone dosage was decreased to 1 mg daily, and it was subsequently tapered further to 0.5 mg daily. Repeat brain MRI on 08/18/2020 showed continued improvement in the appearance of the right frontal lobe with only a small focus of enhancing tissue in the more anterior lesion, at that point measuring 2.2 cm. There was still some associated edema. There was no enhancement associated with the more posterior lesion. A tiny focus of enhancement was noted in the left cerebellum, felt to be most likely vascular in nature and unchanged from previous studies. At his follow-up visit on 08/22/2020 he reported new pain in the lower back and pelvic area. Evaluation with MRI of the lumbar spine on 08/31/2020 showed multilevel degenerative changes. There was severe bilateral facet arthropathy at L4-L5, but there was no significant neural foraminal stenosis or significant spinal canal stenosis. There were no suspicious osseous lesions noted. 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 A bone lesion in the left ischium measuring 7 mm was indeterminate. There was unusual signal abnormality within the left iliac bone, also of uncertain significance. Edema was noted within the left iliac us musculature, within the bilateral abductor musculature, and within the gluteus musculature bilaterally, left worse than right. He is seen for a followup visit. He continues to have worsening pain in his lower back and he also now is having more pain in his hips and legs, mainly the lateral aspect. He has very limited activity due to both fatigue and pain. His ECOG score is 3. Appetite has not been good. He does not have fever or night sweats. He does have some shortness of breath. He does not complain of cough or chest pain. He has not been having nausea, but on 3 occasions he has had fairly abrupt onset of vomiting. Bowel and bladder function remain adequate. He does not complain of headache. He does get off balance when he first gets up. He does not have numbness/paresthesia or other focal neurologic symptoms. His reports that he sometimes wakes up in the middle of the night with confusion, and she has noticed that he has been jerking when he is sleeping. Medications: Citalopram Hydrobromide 1 Tablet (of 20 mg) Oral daily, Desmopressin Acetate 1 spray(s) (of 1.5 mg/mL) Solution Nasal b.i.d., Lasix 1 Tablet (of 40 mg) Oral daily PRN, Lovenox 120 mg (of 300 mg/3ml) Injection daily, Morphine Sulfate ER 1 Tablet (of 15 mg) Tablet, controlled release Oral q 12 hours, oxygen 3 L Aerosol at bedtime, Potassium 1 (99 mg) Tablet Oral PRN, Rosuvastatin Calcium 1 (10 mg) Tablet Oral daily Allergies: No Known Allergies. Vital Signs: Performed on Sep 12, 2020 12:28 Height - 71.00 in Weight - 177.8 lbs (LOW) BSA - 2.01 sq.m BMI - 24.80 Temperature - 98.6 F Pulse - 110 /min (HIGH) Respiration - 16 /min BP - 117/85 mm(hg) O2 Sat - 99 % Pain - 4 Physical Examination: Constitutional - He appears generally weak, Eyes - Sclerae nonicteric. Conjunctivae clear, ENMT - No lesions noted in the oral cavity, Neck - There is soft tissue swelling in the supraclavicular fossae, but much more prominently on the left compared to the right, Hematologic/Lymphatic - No cervical, clavicular, or axillary adenopathy, Respiratory - Lungs sound clear, Cardiovascular - Heart rhythm is regular. There is no murmur, gallop, or rub noted, Abdomen - Soft. Liver and spleen are not enlarged. There is no abdominal mass or ascites noted and there is no inguinal adenopathy, Extremities - No lower extremity edema, Neurologic - No focal deficits noted. Problem List: 1. Adenocarcinoma (bronchoalveolar carcinoma) involving the upper lobe of the right lung. His disease was stage IA (T1a, N0, M0) at initial diagnosis in 2012, but with subsequent progression to stage IV disease (M1b) with evidence of recurrence in the right lung and with multiple sites of metastatic bone involvement, including biopsy-proven metastatic adenocarcinoma involving the left ilium in April 2018. 2. 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 3. He developed severe pneumonitis while on immunotherapy with pembrolizumab. 4. COPD. 5. Hyperlipidemia. Problems Addressed with this Encounter and Plan: 1. Adenocarcinoma (bronchoalveolar carcinoma) involving the upper lobe of the right lung. His disease was stage IA (T1a, N0, M0) at initial diagnosis in 2012. His initial treatment included VATS with a bi-segmentectomy of the right upper lobe. The procedure also included resection of right upper lobe ruptured bleb and pleurodesis. In 2018 he had progression to stage IV disease (M1b) with evidence of recurrence in the right lung and with multiple sites of metastatic bone involvement, including biopsy-proven metastatic adenocarcinoma involving the left ilium. On further pathologic analysis his tumor was found to be negative for EGFR mutations and for the ALK and ROS 1 gene rearrangements. A PD-L1 immunostain showed low expression at less than 5%. Given those findings, he began systemic therapy with carboplatin/pemetrexed chemotherapy in combination with pembrolizumab. He had a very good objective response, but treatment was subsequently discontinued when he developed severe treatment related pneumonitis. During subsequent follow-up he had evidence of further metastatic involvement in the brain and in the left adrenal gland. He was given palliative radiation to both sites, completed on 04/29/2020. His repeat brain MRI on 06/20/2020 showed a new lesion anteriorly in the frontal lobe region on the right side measuring 1.8 x 2.6 x 2.9 cm. There was a large amount of associated vasogenic edema, and it was felt that the appearance was most consistent with a new metastatic process. He had neurosurgery consultation with Dr. Nicole in [place], and it was recommended that he initially continue observation, as it was felt that the changes could possibly be due to radiation. His repeat MRI showed slight improvement. During followup there has been continued decline in his overall clinical status. It is uncertain to what extent that may be related to the underlying malignancy or to adverse effects from his treatment. Given the limited options for further treatment of the lung cancer, he has continued symptomatic/supportive care measures. 2. Metastatic bone involvement. He has received palliative radiation to the area of metastatic involvement in the left ilium and he also has been on treatment with denosumab, administered at 3-month intervals. He has been having worsening pain in the low back area. His MRI of the lumbar spine showed some degenerative changes but with no associated neural foraminal or spinal canal stenosis. The pelvis MRI showed a lesion in the left ischium and changes in the left iliac bone which were indeterminate. The most significant finding was avascular necrosis of the bilateral femoral heads. As his pain has continued to worsen, he will be scheduled for a restaging PET/CT. In the meantime, he will continue symptomatic management with extended release morphine 30 mg q12 hr along with immediate release morphine 15 mg as needed. 3. 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 The latter occurred while on anticoagulation with apixaban, and his anticoagulation was subsequently transitioned back to Lovenox. Since then there has been no evidence for new strokes, but he has increasing soft tissue swelling in the left supraclavicular fossa, which is worrisome for underlying subclavian or superior vena cava thrombosis. In the meantime, he will continue the Lovenox at the same dosage. Signed By: Gil Castle M.D. <<Signature on File>>
== END 2020-09-12 06:00 | disposition home or self-care (01) ==
LOC: ONCMED 06:01
PROVIDERS: PCP Family Medicine; Visit Provider Internal Medicine Medical Oncology
DX: C34.11 Malignant neoplasm of upper lobe, right bronchus or lung (principal); C79.51 Secondary malignant neoplasm of bone; C79.31 Secondary malignant neoplasm of brain; C79.72 Secondary malignant neoplasm of left adrenal gland; Z90.2 Acquired absence of lung [part of]; Z79.899 Other long term (current) drug therapy; Z86.73 Personal history of transient ischemic attack (TIA), and cerebral infarction without residual deficits; Z86.718 Personal history of other venous thrombosis and embolism; Z79.01 Long term (current) use of anticoagulants
CPT/HCPCS: 96372; 99214; J0897

== ENCOUNTER 2020-09-30 08:48 | Outpatient (CLI) | payer BC, SELFPAY ==
--- NOTE | 2020-10-01 13:14 | ONC FU_ITS ---
Dr. Castle Patient Follow-Up Note Patient: Gabriel Yanez Unit #: [id number]: [id number] Dicatated By: Gil Castle M.D.Date of Visit:Sep 30, 2020 Onc Med Follow-up/Prog Note Chief Complaint: Lung cancer. 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 His disease was stage IA (T1a, N), M0) at initial diagnosis in 2012, but with subsequent progression to stage IV ( M1b). He had presented with a spontaneous pneumothorax and a right upper lobe nodule in 2012. On 02/28/2013 because of persistent air leak he required VATS with a bi-segmentectomy of the right upper lobe, resection of right upper lobe ruptured bleb, and pleurodesis. No thoracic lymphadenectomy was performed. His surgical pathology showed a 1.5 cm minimally invasive adenocarcinoma with negative margins. Clinically there was no distant or regional metastatic disease reported. Thus, his disease was stage IA (T1a, N0, M0), and he was followed expectantly. His surveillance CT of the chest on 09/01/2014 showed post operative changes in the right upper lobe with stable area of nodular thickening and scarring. He was first seen by Dr. Perez on 01/10/2015. His restaging CT of the chest on 03/22/2015 was unchanged. Further restaging CT on 09/06/2015 showed scarring, but no evidence of metastatic disease. He continued on observation/expectant management. His subsequent surveillance CT scans had shown stable findings until March 2018 when his repeat chest CT showed an increase in the size of a pleural-based densities in the upper right chest and in the medial mid right chest, suspicious for pleural-based metastatic disease. He had further evaluation with restaging PET/CT on 04/28/2018. There was noted to be pronounced activity throughout the right hemithorax, felt to be associated with inflammation in the pleura related to the pleurodesis or VATS. It was noted to have calcifications associated with it. A 2 cm diameter pleural based lesion was thought to possibly represent early tumor involvement. An abnormality in a left anterior rib was felt to be suspicious for rib fracture. A focus involving a posterior rib on the right side was thought be consistent with early bone metastasis or inflammation or fracture. There were lesions noted in the pelvic bone and right femur which were felt to be consistent with metastatic bone lesions. MRI of the brain on 05/06/2018 showed rather pronounced deep white matter disease felt to possibly represent a demyelinating process versus pronounced small vessel ischemic changes. It did not appear to be due to metastatic disease. Bone scan on 05/08/2018 showed multiple areas of abnormal uptake involving the left hemipelvis, right femur, multiple ribs, thoracic spine, and likely a small focus in the cervical spine. On 05/22/[address] directed needle biopsy of the lesion in the left ilium. Pathology was consistent with metastatic adenocarcinoma. The tumor cells were positive for CK7, TTF-1, and Napsin A. He was seen for a follow-up visit on 05/29/2018. At that point he did appear to be having significant bone pain associated with the metastatic involvement. As it did include weightbearing areas, I opted to refer him for palliative radiation. In the meantime, I also requested additional pathologic studies, including a PD-L1 immunostain, which showed low PD-L1 expression at 5%. In addition, the tumor cells were tested and found to be negative for EGFR mutations and for the ALK and ROS1 gene rearrangements. He was seen here on 07/02/2018 to initiate chemotherapy with pembrolizumab in combination with carboplatin and pemetrexed. He had multiple new complaints including low-grade fever, increased shortness of breath, and new pain and swelling in both legs. He was found to have extensive deep vein thrombosis in both legs and very extensive pulmonary emboli bilaterally. He began anticoagulation with Lovenox, and he was observed overnight in the hospital. He then returned on 07/08/2018 to begin cycle 1 of carboplatin/pemetrexed in combination with pembrolizumab. He also started denosumab injections for the metastatic bone involvement. He tolerated the chemotherapy well, and he was able to continue with cycle 2 of carboplatin/Alimta/pembrolizumab on 07/29/2018. During that time his anticoagulation was transitioned to a apixaban. He continued to tolerate the chemotherapy with acceptable toxicity. He proceeded with cycle 3 on 08/19/2018 and was cycle 4 on 09/08/2018. On 09/19/2018 he was admitted to [facility] with shortness of breath and hypoxia. His clinical evaluation was consistent with pneumonitis associated with his immunotherapy. He was given high-dose steroid therapy. His clinical course was complicated by left pneumothorax with persistent air leak. He was eventually discharged home on 10/08/2018 with the chest tube in place. He is on 30 mg of prednisone daily. Just prior to discharge, he also was found to have Clostridium difficile colitis, for which he began treatment with oral vancomycin. During follow-up he continued to have severe shortness of breath and limited activity tolerance. He attempted to remove his chest to begin last week, but it had to be reinserted within a couple of hours. His restaging CT scans on 11/13/2018 showed no evidence of recurrent pulmonary embolus. There was a persistent small residual filling defect in the posterior basal segment right lower lobe pulmonary artery branch. There was improvement in the previously noted right upper, middle, and lower lobe pneumonia compared to the 08/27/2018 study. There was evidence of left hemithorax talc pleurodesis and placement of lower third left hemithorax anterior pleural space pigtail catheter. A right hilar lymph node appears stable. There is no evidence of other significant lymphadenopathy. A T5 vertebral body metastatic lesion appeared stable. The abdomen and pelvis shows stable appearance of a mixed density metastatic lesion in the left ilium. There was subcutaneous soft tissue edema noted in the left flank. There were no other significant findings. I had seen him for a follow-up visit on 11/13/2018. He was showing some improvement in his clinical status. At that point he continued monthly denosumab injections for the metastatic bone involvement, but in the absence of any evidence of disease progression, I opted to keep his chemotherapy on hold. In the meantime, he continued follow-up with Dr. Orlando and he was started on diuretic therapy for cor pulmonale. He continued to have a high oxygen requirement. Restaging CT scans from 06/02/2019 showed continued pleural scarring and thickening with volume loss on the right side. There was also pronounced pleural scarring and thickening involving the left lung, and there was thickening of the soft tissues between the ribs and the tip of the scapula on the left side that appeared very worrisome for tumor involvement in the soft tissues. There was pronounced soft tissue thickening and abnormal enhancement of the tissue extending along the left lateral chest wall, possibly related to the previous procedures. Metastatic disease, though, was not excluded. There appear to be a couple of small cysts in the liver. There was some inhomogeneity involving the right finger and the left iliac wing, appearance of which was not significantly changed from the previous PET/CT. With those findings, he continued denosumab injections for the metastatic bone involvement, but he otherwise continued observation/symptomatic management for the lung cancer. Restaging PET/CT on 09/09/2019 showed pronounced increased activity in the pleural spaces of both hemithoraces, unclear as to whether it was due post therapeutic changes or to new spread of tumor. A focus of activity in the rectum was noted to be fairly intense, but unchanged compared to the February study. The bony metastases were noted to have markedly improved. He continued treatment with denosumab at a 3-month interval. A restaging PET/CT on 12/15/2019 showed an area of increased metabolic activity along the left lateral chest wall just inferior to the scapula, very similar in appearance to the prior study. Bilateral talc pleurodesis changes were again noted, also similar to the prior study. A new FDG avid mass was noted within the left lateral limb of the adrenal gland measuring 1.5 cm, SUV 4.9, worrisome for metastatic disease. Also noted was a small lymph node within the aortocaval region in the mid abdomen at the L3 level with mild FDG activity, SUV 4.8, also suspicious for possible metastasis. Robust activity was again noted within the region of the lower rectum. As of his follow-up visit on 12/22/2019 he appeared stable clinically, and we opted to continue with observation/expectant management. At that point I had transitioned his anticoagulation from Lovenox to apixaban. On 02/28/2020 he had presented to the [facility] emergency room with acute onset of weakness in the left arm and hand. He had some transient visual impairment and he also had some stumbling, but the main problem was with his left hand, particularly his fine motor skills. His brain MRI with and without contrast showed restricted diffusion along the central sulcus involving the frontal and parietal lobe and an area of restricted diffusion along the cortex of the right parietal lobe. Multiple small areas of restricted diffusion were noted within the right frontal lobe, bilateral parietal lobes, bilateral occipital lobes, and the bilateral cerebellum. 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 Also noted were enhancing nodules within the bilateral cerebellum, the largest measuring 7 x 4 mm, which were felt to be suggestive of metastatic disease. There was no associated edema. His anticoagulation was changed back to Lovenox, and his symptoms improved with conservative management. His medical history is otherwise significant for underlying COPD and dyslipidemia. He had smoked in the past, but he quit smoking in the . He had screening colonoscopy on 04/17/2012. The only finding was a hyperplastic polyp. INTERIM HISTORY: I had seen him for a follow-up visit on 03/04/2020. At that point his symptoms had not completely resolved, but they were definitely improving. I was able to review the MRI disc with 1 of the radiologist. One lesion in the lateral left cerebellar hemisphere did appear more prominent and it appeared more suspicious for a metastatic lesion. The other cerebellar lesions were smaller and were felt to be indeterminate. Restaging CT scans of the chest, abdomen, and pelvis on 03/08/2020 showed no change in the pleural calcification versus pleurodesis and there was unchanged sclerosis in the left hilum and left initial tuberosity. An aortocaval lymph node was noted to have decreased in size. However, there was further increase in the size of the left adrenal mass to 3.5 x 2.6 cm compared to 14 mm on the previous study. A 5 mm low-density focus in the right lobe of the liver appeared stable. His repeat brain MRI on 04/04/2020 showed several small enhancing lesions in the right and left cerebellum, superior right frontal and superior right parietal areas which appeared consistent with metastatic disease. There were evolving areas of infarction in the right parietal and right occipital areas with multiple other tiny areas of infarction in the right and left cerebellum, again consistent with embolic infarctions. With those findings, he underwent palliative whole brain radiation. As his CT scans had also shown evidence of what appeared to be isolated disease progression in the right adrenal gland, I had recommended that that site also be treated. He completed radiation on 04/29/2020, both sites to a total dose of 3000 cGy. During that time he had developed new stroke symptoms in the left arm/hand despite being on anticoagulation with Lovenox. At that point I did opt to check his anti-Xa level, and it actually was a little above therapeutic range. He continued Lovenox at the same dosage. His repeat MRI on 06/21/2020 reported a new lesion anteriorly in the frontal lobe region on the right side measuring 1.8 x 2.6 x 2.9 cm. There was a large amount of associated vasogenic edema with slight midline shift estimated at 2 to 3 mm. It was felt that the appearance was most consistent with a new metastatic process. The old lesion was noted to appear basically unchanged. Small focal areas seen previously in the left cerebellum appeared improved. The larger right parietal occipital lesion showed marked improvement. Restaging CT scans of the chest, abdomen, and pelvis on 06/22/2020 showed decreasing size of left adrenal mass with no evidence of new metastatic lesions. With those findings he was started on dexamethasone and he then had neurosurgery consultation with Dr. Nicole in [place]. At least initially, observation was recommended as it was thought that the MRI changes could possibly be due to radiation. I did have him continue dexamethasone, but with the dosage reduced to 2 mg daily. Repeat brain MRI on 07/21/2020 showed slight decrease in size of the large lesion near the sylvian fissure on the right side. Some component of post therapy calcification was suspected. There was still evidence of vasogenic edema involving both anterior and posterior lesions in the right parietal lobe. There were no enhancing lesions identified in the cerebellum, brainstem, temporal lobes, or in the left side of the brain. Overall the appearance was slightly improved. There was no indication of any worsening. At his follow-up visit on 07/25/2020 he continued to have fairly marginal performance status, but he was showing some improvement clinically. At that point his dexamethasone dosage was decreased to 1 mg daily, and it was subsequently tapered further to 0.5 mg daily. Repeat brain MRI on 08/18/2020 showed continued improvement in the appearance of the right frontal lobe with only a small focus of enhancing tissue in the more anterior lesion, at that point measuring 2.2 cm. There was still some associated edema. There was no enhancement associated with the more posterior lesion. A tiny focus of enhancement was noted in the left cerebellum, felt to be most likely vascular in nature and unchanged from previous studies. At his follow-up visit on 08/22/2020 he reported new pain in the lower back and pelvic area. Evaluation with MRI of the lumbar spine on 08/31/2020 showed multilevel degenerative changes. There was severe bilateral facet arthropathy at L4-L5, but there was no significant neural foraminal stenosis or significant spinal canal stenosis. There were no suspicious osseous lesions noted. 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 A bone lesion in the left ischium measuring 7 mm was indeterminate. There was unusual signal abnormality within the left iliac bone, also of uncertain significance. Edema was noted within the left iliac us musculature, within the bilateral abductor musculature, and within the gluteus musculature bilaterally, left worse than right. A CT pulmonary angiogram on 09/14/2020 showed no evidence of pulmonary embolism and no evidence of supraclavicular mass. A nodule within the medial margin of the right lung measured 16 x 11 mm. Areas of scattered atelectasis or scarring were noted in both lungs. Restaging PET/CT on 09/20/2020 showed pleural-based calcified activity bilaterally which was hypermetabolic and felt likely to be associated with previous bilateral pleurodesis. There was extremely intense activity in the low pelvic region, suspected to be in the rectum and very worrisome for rectal cancer. Numerous subcutaneous nodules involving both legs/thighs were also hypermetabolic and there were additional subcutaneous nodules associated with both femora. He is seen for a followup visit. He has not been feeling good. He has weakness/fatigue and poor balance, and his activity is very limited. ECOG score is 3. Appetite is poor. He does not have fever or night sweats. He has shortness of breath with activity and has heart sometimes races. He does not have much cough. He complains that his stomach does this flip-flop thing and he complains that it feels full. Those symptoms are relieved somewhat with Zofran. He also has occasional episodes of vomiting, which are not preceded with nausea. His bowel and bladder function remain adequate. He has pain in his lower back and sometimes in his right hip. He does not complain of headache. He has no numbness/paresthesia or other focal neurologic symptoms. Medications: Citalopram Hydrobromide 1 Tablet (of 20 mg) Oral daily, Desmopressin Acetate 1 spray(s) (of 1.5 mg/mL) Solution Nasal b.i.d., Lasix 1 Tablet (of 40 mg) Oral daily PRN, Lovenox 120 mg (of 300 mg/3ml) Injection daily, Morphine Sulfate ER 1 Tablet (of 15 mg) Tablet, controlled release Oral q 12 hours, oxygen 3 L Aerosol at bedtime, Potassium 1 (99 mg) Tablet Oral PRN, Rosuvastatin Calcium 1 (10 mg) Tablet Oral daily, Sodium Chloride 1 Tablet Oral b.i.d., Zofran 1 (4 mg) Tablet Oral q 4 hours Allergies: No Known Allergies. Vital Signs: Performed on Sep 30, 2020 08:56 Height - 71.00 in Weight - 175 lbs (LOW) BSA - 1.99 sq.m BMI - 24.41 Temperature - 97.9 F (LOW) Pulse - 79 /min Respiration - 16 /min BP - 107/76 mm(hg) O2 Sat - 98 % Pain - 3 Physical Examination: Constitutional - He appears generally weak. He has just mildly cushingoid, Eyes - Sclerae nonicteric. Conjunctivae clear, ENMT - No lesions noted in the oral cavity, Hematologic/Lymphatic - No cervical, clavicular, or axillary adenopathy, Respiratory - Lungs sound clear, Cardiovascular - Heart rhythm is regular. There is no murmur, gallop, or rub noted, Abdomen - Mildly distended but soft. Liver and spleen are not enlarged. There is no abdominal mass or ascites noted and there is no inguinal adenopathy, Extremities - No edema, Neurologic - No focal deficits noted. Lab/Imaging: Test performed on Sep 19, 2020 07:28 Glucose 99 mg/dL BUN 9.0 mg/dL Creatinine 1.0 mg/dL Cr Clearance (Est) 92.06 mL/min Sodium 131.4 mmol/L Potassium 3.8 mmol/L Chloride 97.4 mmol/L CO2 27.9 mmol/L Calcium 9.6 mg/dL Protein, Total 6.0 g/dL Albumin 3.9 g/dL Bilirubin, Total 1.2 mg/dL Alkaline Phosphatase 63 IU/L AST (SGOT) 13.0 IU/L ALT (SGPT) 11.0 IU/L WBC 4.5 10^9/L RBC 3.93 10^12/L HGB 12.3 g/dL HCT 37.4 % MCV 95.0 fl MCH 31.2 pg MCHC 32.8 g/dL RDW 13.7 % Platelet Count 321 10^9/L MPV 6.6 fL Neutrophils (Gran) 3.4 10^9/L Lymphocytes 0.7 10^9/L Monocytes 0.4 10^9/L Manual Lymphocytes 16.2 % Manual Monocytes 8.0 % Problem List: 1. Adenocarcinoma (bronchoalveolar carcinoma) involving the upper lobe of the right lung. His disease was stage IA (T1a, N0, M0) at initial diagnosis in 2012, but with subsequent progression to stage IV disease (M1b) with evidence of recurrence in the right lung and with multiple sites of metastatic bone involvement, including biopsy-proven metastatic adenocarcinoma involving the left ilium in April 2018. 2. 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 3. He developed severe pneumonitis while on immunotherapy with pembrolizumab. 4. COPD. 5. Hyperlipidemia. Problems Addressed with this Encounter and Plan: 1. Patient with adenocarcinoma (bronchoalveolar carcinoma) involving the upper lobe of the right lung. His disease was stage IA (T1a, N0, M0) at initial diagnosis in 2012. His initial treatment included VATS with a bi-segmentectomy of the right upper lobe. The procedure also included resection of right upper lobe ruptured bleb and pleurodesis. In 2017 he had progression to stage IV disease (M1b) with evidence of recurrence in the right lung and with multiple sites of metastatic bone involvement, including biopsy-proven metastatic adenocarcinoma involving the left ilium. On further pathologic analysis his tumor was found to be negative for EGFR mutations and for the ALK and ROS 1 gene rearrangements. A PD-L1 immunostain showed low expression at less than 5%. Given those findings, he began systemic therapy with carboplatin/pemetrexed chemotherapy in combination with pembrolizumab. He had a very good objective response, but treatment was subsequently discontinued when he developed severe treatment related pneumonitis. During subsequent follow-up he had evidence of further metastatic involvement in the brain and in the left adrenal gland. He was given palliative radiation to both sites, completed on 04/29/2020. His repeat brain MRI on 06/20/2020 showed a new lesion anteriorly in the frontal lobe region on the right side measuring 1.8 x 2.6 x 2.9 cm. There was a large amount of associated vasogenic edema, and it was felt that the appearance was most consistent with a new metastatic process. He had neurosurgery consultation with Dr. Nicole in [place], and it was recommended that he initially continue observation, as it was felt that the changes could possibly be due to radiation. His repeat MRI showed slight improvement. During followup there has been continued decline in his overall clinical status. His recent CT pulmonary angiogram and restaging PET/CT showed no evidence for new thromboembolism nor any evidence for new sites of metastatic disease. The PET/CT finding of most concern is activity noted in the rectal area. It is not a new finding, but the FDG activity has increased. He is not symptomatic with that and a previous rectal exam was unrevealing. Nonetheless, with that finding, arrangements will be made for a colonoscopy. He otherwise continue symptomatic/supportive care measures. With his performance status continuing to decline, I am going to have him try restarting dexamethasone at 4 mg daily. I will see him again in 1 month. He will be due for repeat brain MRI prior to that visit. 2. Metastatic bone involvement. He has received palliative radiation to the area of metastatic involvement in the left ilium and he also has been on treatment with denosumab, administered at 3-month intervals. He otherwise just continues symptomatic management for the pain. 3. 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 The latter occurred while on anticoagulation with apixaban, and his anticoagulation was subsequently transitioned back to Lovenox. Thus far during follow-up there has been no documentation of any further thromboembolism. He is continuing Lovenox at 100 mg every 12 hours. He has been receiving the Lovenox injections in his thighs, which explains some of the subcutaneous FDG activity noted on the recent PET/CT. Signed By: Gil Castle M.D. <<Signature on File>>
== END 2020-09-30 08:49 | disposition home or self-care (01) ==
LOC: ONCMED 08:50
PROVIDERS: PCP Family Medicine; Visit Provider Internal Medicine Medical Oncology
DX: C34.11 Malignant neoplasm of upper lobe, right bronchus or lung (principal); C79.31 Secondary malignant neoplasm of brain; C79.51 Secondary malignant neoplasm of bone; C79.72 Secondary malignant neoplasm of left adrenal gland; R93.3 Abnormal findings on diagnostic imaging of other parts of digestive tract; Z86.711 Personal history of pulmonary embolism; Z79.01 Long term (current) use of anticoagulants; Z86.73 Personal history of transient ischemic attack (TIA), and cerebral infarction without residual deficits; Z92.3 Personal history of irradiation; Z90.2 Acquired absence of lung [part of]
CPT/HCPCS: 99214

== ENCOUNTER 2020-11-01 10:44 | Outpatient (CLI) | payer BC, SELFPAY ==
--- NOTE | 2020-11-05 11:18 | ONC FU_ITS ---
Dr. Castle Patient Follow-Up Note Patient: Gabriel Yanez Unit #: [id number]: [id number] Dicatated By: Gil Castle M.D.Date of Visit:November 01, 2020 Onc Med Follow-up/Prog Note Chief Complaint: Lung cancer. 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 His disease was stage IA (T1a, N), M0) at initial diagnosis in 2012, but with subsequent progression to stage IV ( M1b). He had presented with a spontaneous pneumothorax and a right upper lobe nodule in 2012. On 02/28/2013 because of persistent air leak he required VATS with a bi-segmentectomy of the right upper lobe, resection of right upper lobe ruptured bleb, and pleurodesis. No thoracic lymphadenectomy was performed. His surgical pathology showed a 1.5 cm minimally invasive adenocarcinoma with negative margins. Clinically there was no distant or regional metastatic disease reported. Thus, his disease was stage IA (T1a, N0, M0), and he was followed expectantly. His surveillance CT of the chest on 09/01/2014 showed post operative changes in the right upper lobe with stable area of nodular thickening and scarring. He was first seen by Dr. Perez on 01/10/2015. His restaging CT of the chest on 03/22/2015 was unchanged. Further restaging CT on 09/06/2015 showed scarring, but no evidence of metastatic disease. He continued on observation/expectant management. His subsequent surveillance CT scans had shown stable findings until March 2018 when his repeat chest CT showed an increase in the size of a pleural-based densities in the upper right chest and in the medial mid right chest, suspicious for pleural-based metastatic disease. He had further evaluation with restaging PET/CT on 04/28/2018. There was noted to be pronounced activity throughout the right hemithorax, felt to be associated with inflammation in the pleura related to the pleurodesis or VATS. It was noted to have calcifications associated with it. A 2 cm diameter pleural based lesion was thought to possibly represent early tumor involvement. An abnormality in a left anterior rib was felt to be suspicious for rib fracture. A focus involving a posterior rib on the right side was thought be consistent with early bone metastasis or inflammation or fracture. There were lesions noted in the pelvic bone and right femur which were felt to be consistent with metastatic bone lesions. MRI of the brain on 05/06/2018 showed rather pronounced deep white matter disease felt to possibly represent a demyelinating process versus pronounced small vessel ischemic changes. It did not appear to be due to metastatic disease. Bone scan on 05/08/2018 showed multiple areas of abnormal uptake involving the left hemipelvis, right femur, multiple ribs, thoracic spine, and likely a small focus in the cervical spine. On 05/22/[address] directed needle biopsy of the lesion in the left ilium. Pathology was consistent with metastatic adenocarcinoma. The tumor cells were positive for CK7, TTF-1, and Napsin A. He was seen for a follow-up visit on 05/29/2018. At that point he did appear to be having significant bone pain associated with the metastatic involvement. As it did include weightbearing areas, I opted to refer him for palliative radiation. In the meantime, I also requested additional pathologic studies, including a PD-L1 immunostain, which showed low PD-L1 expression at 5%. In addition, the tumor cells were tested and found to be negative for EGFR mutations and for the ALK and ROS1 gene rearrangements. He was seen here on 07/02/2018 to initiate chemotherapy with pembrolizumab in combination with carboplatin and pemetrexed. He had multiple new complaints including low-grade fever, increased shortness of breath, and new pain and swelling in both legs. He was found to have extensive deep vein thrombosis in both legs and very extensive pulmonary emboli bilaterally. He began anticoagulation with Lovenox, and he was observed overnight in the hospital. He then returned on 07/08/2018 to begin cycle 1 of carboplatin/pemetrexed in combination with pembrolizumab. He also started denosumab injections for the metastatic bone involvement. He tolerated the chemotherapy well, and he was able to continue with cycle 2 of carboplatin/Alimta/pembrolizumab on 07/29/2018. During that time his anticoagulation was transitioned to a apixaban. He continued to tolerate the chemotherapy with acceptable toxicity. He proceeded with cycle 3 on 08/19/2018 and was cycle 4 on 09/08/2018. On 09/19/2018 he was admitted to [facility] with shortness of breath and hypoxia. His clinical evaluation was consistent with pneumonitis associated with his immunotherapy. He was given high-dose steroid therapy. His clinical course was complicated by left pneumothorax with persistent air leak. He was eventually discharged home on 10/08/2018 with the chest tube in place. He is on 30 mg of prednisone daily. Just prior to discharge, he also was found to have Clostridium difficile colitis, for which he began treatment with oral vancomycin. During follow-up he continued to have severe shortness of breath and limited activity tolerance. He attempted to remove his chest to begin last week, but it had to be reinserted within a couple of hours. His restaging CT scans on 11/13/2018 showed no evidence of recurrent pulmonary embolus. There was a persistent small residual filling defect in the posterior basal segment right lower lobe pulmonary artery branch. There was improvement in the previously noted right upper, middle, and lower lobe pneumonia compared to the 08/27/2018 study. There was evidence of left hemithorax talc pleurodesis and placement of lower third left hemithorax anterior pleural space pigtail catheter. A right hilar lymph node appears stable. There is no evidence of other significant lymphadenopathy. A T5 vertebral body metastatic lesion appeared stable. The abdomen and pelvis shows stable appearance of a mixed density metastatic lesion in the left ilium. There was subcutaneous soft tissue edema noted in the left flank. There were no other significant findings. I had seen him for a follow-up visit on 11/13/2018. He was showing some improvement in his clinical status. At that point he continued monthly denosumab injections for the metastatic bone involvement, but in the absence of any evidence of disease progression, I opted to keep his chemotherapy on hold. In the meantime, he continued follow-up with Dr. Orlando and he was started on diuretic therapy for cor pulmonale. He continued to have a high oxygen requirement. Restaging CT scans from 06/02/2019 showed continued pleural scarring and thickening with volume loss on the right side. There was also pronounced pleural scarring and thickening involving the left lung, and there was thickening of the soft tissues between the ribs and the tip of the scapula on the left side that appeared very worrisome for tumor involvement in the soft tissues. There was pronounced soft tissue thickening and abnormal enhancement of the tissue extending along the left lateral chest wall, possibly related to the previous procedures. Metastatic disease, though, was not excluded. There appear to be a couple of small cysts in the liver. There was some inhomogeneity involving the right finger and the left iliac wing, appearance of which was not significantly changed from the previous PET/CT. With those findings, he continued denosumab injections for the metastatic bone involvement, but he otherwise continued observation/symptomatic management for the lung cancer. Restaging PET/CT on 09/09/2019 showed pronounced increased activity in the pleural spaces of both hemithoraces, unclear as to whether it was due post therapeutic changes or to new spread of tumor. A focus of activity in the rectum was noted to be fairly intense, but unchanged compared to the February study. The bony metastases were noted to have markedly improved. He continued treatment with denosumab at a 3-month interval. A restaging PET/CT on 12/15/2019 showed an area of increased metabolic activity along the left lateral chest wall just inferior to the scapula, very similar in appearance to the prior study. Bilateral talc pleurodesis changes were again noted, also similar to the prior study. A new FDG avid mass was noted within the left lateral limb of the adrenal gland measuring 1.5 cm, SUV 4.9, worrisome for metastatic disease. Also noted was a small lymph node within the aortocaval region in the mid abdomen at the L3 level with mild FDG activity, SUV 4.8, also suspicious for possible metastasis. Robust activity was again noted within the region of the lower rectum. As of his follow-up visit on 12/22/2019 he appeared stable clinically, and we opted to continue with observation/expectant management. At that point I had transitioned his anticoagulation from Lovenox to apixaban. On 02/28/2020 he had presented to the [facility] emergency room with acute onset of weakness in the left arm and hand. He had some transient visual impairment and he also had some stumbling, but the main problem was with his left hand, particularly his fine motor skills. His brain MRI with and without contrast showed restricted diffusion along the central sulcus involving the frontal and parietal lobe and an area of restricted diffusion along the cortex of the right parietal lobe. Multiple small areas of restricted diffusion were noted within the right frontal lobe, bilateral parietal lobes, bilateral occipital lobes, and the bilateral cerebellum. 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 Also noted were enhancing nodules within the bilateral cerebellum, the largest measuring 7 x 4 mm, which were felt to be suggestive of metastatic disease. There was no associated edema. His anticoagulation was changed back to Lovenox, and his symptoms improved with conservative management. His medical history is otherwise significant for underlying COPD and dyslipidemia. He had smoked in the past, but he quit smoking in the . He had screening colonoscopy on 04/17/2012. The only finding was a hyperplastic polyp. INTERIM HISTORY: I had seen him for a follow-up visit on 03/04/2020. At that point his symptoms had not completely resolved, but they were definitely improving. I was able to review the MRI disc with 1 of the radiologist. One lesion in the lateral left cerebellar hemisphere did appear more prominent and it appeared more suspicious for a metastatic lesion. The other cerebellar lesions were smaller and were felt to be indeterminate. Restaging CT scans of the chest, abdomen, and pelvis on 03/08/2020 showed no change in the pleural calcification versus pleurodesis and there was unchanged sclerosis in the left hilum and left initial tuberosity. An aortocaval lymph node was noted to have decreased in size. However, there was further increase in the size of the left adrenal mass to 3.5 x 2.6 cm compared to 14 mm on the previous study. A 5 mm low-density focus in the right lobe of the liver appeared stable. His repeat brain MRI on 04/04/2020 showed several small enhancing lesions in the right and left cerebellum, superior right frontal and superior right parietal areas which appeared consistent with metastatic disease. There were evolving areas of infarction in the right parietal and right occipital areas with multiple other tiny areas of infarction in the right and left cerebellum, again consistent with embolic infarctions. With those findings, he underwent palliative whole brain radiation. As his CT scans had also shown evidence of what appeared to be isolated disease progression in the right adrenal gland, I had recommended that that site also be treated. He completed radiation on 04/29/2020, both sites to a total dose of 3000 cGy. During that time he had developed new stroke symptoms in the left arm/hand despite being on anticoagulation with Lovenox. At that point I did opt to check his anti-Xa level, and it actually was a little above therapeutic range. He continued Lovenox at the same dosage. His repeat MRI on 06/21/2020 reported a new lesion anteriorly in the frontal lobe region on the right side measuring 1.8 x 2.6 x 2.9 cm. There was a large amount of associated vasogenic edema with slight midline shift estimated at 2 to 3 mm. It was felt that the appearance was most consistent with a new metastatic process. The old lesion was noted to appear basically unchanged. Small focal areas seen previously in the left cerebellum appeared improved. The larger right parietal occipital lesion showed marked improvement. Restaging CT scans of the chest, abdomen, and pelvis on 06/22/2020 showed decreasing size of left adrenal mass with no evidence of new metastatic lesions. With those findings he was started on dexamethasone and he then had neurosurgery consultation with Dr. Nicole in [place]. At least initially, observation was recommended as it was thought that the MRI changes could possibly be due to radiation. I did have him continue dexamethasone, but with the dosage reduced to 2 mg daily. Repeat brain MRI on 07/21/2020 showed slight decrease in size of the large lesion near the sylvian fissure on the right side. Some component of post therapy calcification was suspected. There was still evidence of vasogenic edema involving both anterior and posterior lesions in the right parietal lobe. There were no enhancing lesions identified in the cerebellum, brainstem, temporal lobes, or in the left side of the brain. Overall the appearance was slightly improved. There was no indication of any worsening. At his follow-up visit on 07/25/2020 he continued to have fairly marginal performance status, but he was showing some improvement clinically. At that point his dexamethasone dosage was decreased to 1 mg daily, and it was subsequently tapered further to 0.5 mg daily. Repeat brain MRI on 08/18/2020 showed continued improvement in the appearance of the right frontal lobe with only a small focus of enhancing tissue in the more anterior lesion, at that point measuring 2.2 cm. There was still some associated edema. There was no enhancement associated with the more posterior lesion. A tiny focus of enhancement was noted in the left cerebellum, felt to be most likely vascular in nature and unchanged from previous studies. At his follow-up visit on 08/22/2020 he reported new pain in the lower back and pelvic area. Evaluation with MRI of the lumbar spine on 08/31/2020 showed multilevel degenerative changes. There was severe bilateral facet arthropathy at L4-L5, but there was no significant neural foraminal stenosis or significant spinal canal stenosis. There were no suspicious osseous lesions noted. 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 A bone lesion in the left ischium measuring 7 mm was indeterminate. There was unusual signal abnormality within the left iliac bone, also of uncertain significance. Edema was noted within the left iliac us musculature, within the bilateral abductor musculature, and within the gluteus musculature bilaterally, left worse than right. A CT pulmonary angiogram on 09/14/2020 showed no evidence of pulmonary embolism and no evidence of supraclavicular mass. A nodule within the medial margin of the right lung measured 16 x 11 mm. Areas of scattered atelectasis or scarring were noted in both lungs. Restaging PET/CT on 09/20/2020 showed pleural-based calcified activity bilaterally which was hypermetabolic and felt likely to be associated with previous bilateral pleurodesis. There was extremely intense activity in the low pelvic region, suspected to be in the rectum and very worrisome for rectal cancer. Numerous subcutaneous nodules involving both legs/thighs were also hypermetabolic and there were additional subcutaneous nodules associated with both femora. I have the opportunity to review both studies with the radiologist, and it did appear that the subcutaneous lesions are associated with sites of Lovenox injection. Due to the persistent uptake in the rectal region, he was referred to Dr. Ashton for colonoscopy. He apparently had some polyps removed, but there was no malignancy identified. In the meantime, as his performance status had continued to decline, I also recommended that he restart dexamethasone. He is seen for a followup visit. He started feeling better generally within a day or 2 after restarting dexamethasone. He is currently taking 4 mg daily. He still has limited activity, but definitely has improved. He actually has started doing a little bit of light work again. His ECOG score is 2. He is also eating better. He has not had fever. He does report having awful night sweating. He has not had sore mouth or throat, but he does complain that he drools a lot and he has sometimes getting choked when he eats. He otherwise has just occasional cough. He has some shortness of breath, but his breathing is pretty good. He does not complain of chest pain. He has no GI or complaints. He has no significant joint or bone pain. He does not complain of headache. He does complain that he feels wobbly. He has no numbness/paresthesia or other focal neurologic symptoms. Medications: Citalopram Hydrobromide 1 Tablet (of 20 mg) Oral daily, Desmopressin Acetate 1 spray(s) (of 1.5 mg/mL) Solution Nasal b.i.d., Lasix 1 Tablet (of 40 mg) Oral daily PRN, Lovenox 120 mg (of 300 mg/3ml) Injection daily, Morphine Sulfate ER 1 Tablet (of 15 mg) Tablet, controlled release Oral q 12 hours, oxygen 3 L Aerosol at bedtime, Potassium 1 (99 mg) Tablet Oral PRN, Rosuvastatin Calcium 1 (10 mg) Tablet Oral daily, Sodium Chloride 1 Tablet Oral b.i.d., Zofran 1 (4 mg) Tablet Oral q 4 hours Allergies: No Known Allergies. Vital Signs: Performed on November 01, 2020 12:14 Height - 71.00 in Weight - 187.2 lbs (HIGH) BSA - 2.05 sq.m BMI - 26.11 Temperature - 96.8 F (LOW) Pulse - 68 /min Respiration - 18 /min BP - 129/86 mm(hg) O2 Sat - 97 % Pain - 0 Fatigue - 2 Physical Examination: Constitutional - He appears generally weak, Eyes - Sclerae nonicteric. Conjunctivae clear, ENMT - No lesions noted in the oral cavity, Hematologic/Lymphatic - No cervical, clavicular, or axillary adenopathy, Respiratory - Lungs sound clear, Cardiovascular - Heart rhythm is regular. There is no murmur, gallop, or rub noted, Abdomen - Mildly distended but soft. Liver and spleen are not enlarged. There is no abdominal mass or ascites noted and there is no inguinal adenopathy, Extremities - No edema. He has fairly extensive purpura, Neurologic - No focal deficits noted. Lab/Imaging: Test performed on October 31, 2020 08:06 Glucose 120.0 mg/dL BUN 19.0 mg/dL Creatinine 0.9 mg/dL Cr Clearance (Est) 102.29 mL/min Sodium 134.4 mmol/L Potassium 4.8 mmol/L Chloride 107.5 mmol/L CO2 29.0 mmol/L Calcium 9.4 mg/dL Protein, Total 6.0 g/dL Albumin 3.8 g/dL Bilirubin, Total 0.7 mg/dL Alkaline Phosphatase 79.0 IU/L AST (SGOT) 14.0 IU/L ALT (SGPT) 39.0 IU/L WBC 5.7 10^9/L RBC 4.13 10^12/L HGB 13.1 g/dL HCT 40.3 % MCV 97.5 fl MCH 31.8 pg MCHC 32.6 g/dL RDW 15.1 % Platelet Count 13 10^9/L MPV 7.0 fL Neutrophils (Gran) 4.8 10^9/L Lymphocytes 0.5 10^9/L Monocytes 0.4 10^9/L Manual Lymphocytes 9.1 % Manual Monocytes 6.6 % Problem List: 1. Adenocarcinoma (bronchoalveolar carcinoma) involving the upper lobe of the right lung. His disease was stage IA (T1a, N0, M0) at initial diagnosis in 2012, but with subsequent progression to stage IV disease (M1b) with evidence of recurrence in the right lung and with multiple sites of metastatic bone involvement, including biopsy-proven metastatic adenocarcinoma involving the left ilium in April 2018. 2. 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 3. He developed severe pneumonitis while on immunotherapy with pembrolizumab. 4. COPD. 5. Hyperlipidemia. Problems Addressed with this Encounter and Plan: 1. Patient with adenocarcinoma (bronchoalveolar carcinoma) involving the upper lobe of the right lung. His disease was stage IA (T1a, N0, M0) at initial diagnosis in 2012. His initial treatment included VATS with a bi-segmentectomy of the right upper lobe. The procedure also included resection of right upper lobe ruptured bleb and pleurodesis. In 2017 he had progression to stage IV disease (M1b) with evidence of recurrence in the right lung and with multiple sites of metastatic bone involvement, including biopsy-proven metastatic adenocarcinoma involving the left ilium. On further pathologic analysis his tumor was found to be negative for EGFR mutations and for the ALK and ROS 1 gene rearrangements. A PD-L1 immunostain showed low expression at less than 5%. Given those findings, he began systemic therapy with carboplatin/pemetrexed chemotherapy in combination with pembrolizumab. He had a very good objective response, but treatment was subsequently discontinued when he developed severe treatment related pneumonitis. During subsequent follow-up he had evidence of further metastatic involvement in the brain and in the left adrenal gland. He was given palliative radiation to both sites, completed on 04/29/2020. His repeat brain MRI on 06/20/2020 showed a new lesion anteriorly in the frontal lobe region on the right side measuring 1.8 x 2.6 x 2.9 cm. There was a large amount of associated vasogenic edema, and it was felt that the appearance was most consistent with a new metastatic process. He had neurosurgery consultation with Dr. Nicole in [place], and it was recommended that he initially continue observation, as it was felt that the changes could possibly be due to radiation. His repeat MRI showed slight improvement. During followup there has been continued decline in his overall clinical status. His recent CT pulmonary angiogram and restaging PET/CT showed no evidence for new thromboembolism nor any evidence for new sites of metastatic disease. The PET/CT finding of most concern is activity noted in the rectal area. It is not a new finding, but the FDG activity has increased. He was found on colonoscopy to have tubular adenomas. There was no malignancy identified. His management has otherwise beeb symptomatic/supportive. With his follow-up visit on 09/30/2020 his performance status had continued to decline, and at that point I did opt to have him restart dexamethasone. Since then he has been feeling much better, though he still has limited activity tolerance. His current MRI shows no evidence of progression of the metastatic brain disease and no evidence of any new thromboembolism. I will have him try reducing the dexamethasone dosage to 2 mg daily. I will see him again in 1 month. 2. Metastatic bone involvement. He has received palliative radiation to the area of metastatic involvement in the left ilium and he also has been on treatment with denosumab, administered at 3-month intervals. He otherwise just continues symptomatic management for the pain. 3. 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 The latter occurred while on anticoagulation with apixaban, and his anticoagulation was subsequently transitioned back to Lovenox. Thus far during follow-up there has been no documentation of any further thromboembolism. Signed By: Gil Castle M.D. <<Signature on File>>
== END 2020-11-01 10:45 | disposition home or self-care (01) ==
LOC: ONCMED 10:45
PROVIDERS: PCP Family Medicine; Visit Provider Internal Medicine Medical Oncology
DX: C34.11 Malignant neoplasm of upper lobe, right bronchus or lung (principal); C79.51 Secondary malignant neoplasm of bone; C79.31 Secondary malignant neoplasm of brain; I26.99 Other pulmonary embolism without acute cor pulmonale; J18.9 Pneumonia, unspecified organism; J44.9 Chronic obstructive pulmonary disease, unspecified; E78.5 Hyperlipidemia, unspecified; G89.3 Neoplasm related pain (acute) (chronic); Z79.899 Other long term (current) drug therapy
CPT/HCPCS: 99214

== ENCOUNTER 2020-12-12 14:19 | Outpatient (CLI) | payer MEDICARE, SELFPAY ==
[2020-12-12 15:42] LABS: Basophils % 0.4 %; Eosinophils % 0.4 %; Hematocrit 41.1 % (42.0-52.0); Hemoglobin 13.3 g/dL (11.7-16.6); Lymphocytes # 0.8 10^3/uL (0.8-4.8); Lymphocytes % 14.9 %; Mean Corpuscular HGB Conc 32.4 g/dL (30.0-36.0); Mean Corpuscular Volume 95.8 fL (80-94); Mean Platelet Volume 9.2 fL (7.4-10.4); Monocytes # 0.3 10^3/uL (0.2-0.9); Monocytes % 5.9 %; Neutrophils % 77.3 %; Nucleated Red Blood Cells % 0 %; Platelet Count 206 10^3/cmm (130-400); Red Blood Count 4.29 10^6/uL (4.1-5.3); Red Cell Distribution Width 14.2 % (12.1-15.1); White Blood Count 5.6 10^3/uL (4.0-10.0)
[2020-12-12 16:18] LABS: Alanine Aminotransferase 50 U/L (0-41); Albumin Level 3.9 g/dL (3.5-5.2); Alkaline Phosphatase 84 IU/L (40-130); Anion Gap 16.4 (5-19); Aspartate Amino Transferase 17 U/L (0-40); Blood Urea Nitrogen 15 mg/dL (8-23); Calcium 9.7 mg/dL (8.5-10.5); Carbon Dioxide 25 mmol/L (22-29); Chloride 102 mmol/L (98-107); Globulin 2.1 g/dL (1.3-4.6); Glucose 108 mg/dL (65-115); Osmolality Calculated 289 mOsm/kg (285-295); Potassium 4.4 mmol/L (3.5-5.1); Sodium 139 mmol/L (136-145); Total Bilirubin 0.5 mg/dL (0.15-1.2)
[2020-12-12 16:51] LABS: Magnesium 2.1 mg/dL (1.7-2.3)
--- NOTE | 2020-12-16 12:13 | ONC FU_ITS ---
Dr. Castle Patient Follow-Up Note Patient: Gabriel Yanez Unit #: [id number]: [id number] Dicatated By: Gil Castle M.D.Date of Visit:Dec 12, 2020 Onc Med Follow-up/Prog Note Chief Complaint: Lung cancer. 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 His disease was stage IA (T1a, N), M0) at initial diagnosis in 2012, but with subsequent progression to stage IV ( M1b). He had presented with a spontaneous pneumothorax and a right upper lobe nodule in 2012. On 02/28/2013 because of persistent air leak he required VATS with a bi-segmentectomy of the right upper lobe, resection of right upper lobe ruptured bleb, and pleurodesis. No thoracic lymphadenectomy was performed. His surgical pathology showed a 1.5 cm minimally invasive adenocarcinoma with negative margins. Clinically there was no distant or regional metastatic disease reported. Thus, his disease was stage IA (T1a, N0, M0), and he was followed expectantly. His surveillance CT of the chest on 09/01/2014 showed post operative changes in the right upper lobe with stable area of nodular thickening and scarring. He was first seen by Dr. Perez on 01/10/2015. His restaging CT of the chest on 03/22/2015 was unchanged. Further restaging CT on 09/06/2015 showed scarring, but no evidence of metastatic disease. He continued on observation/expectant management. His subsequent surveillance CT scans had shown stable findings until March 2018 when his repeat chest CT showed an increase in the size of a pleural-based densities in the upper right chest and in the medial mid right chest, suspicious for pleural-based metastatic disease. He had further evaluation with restaging PET/CT on 04/28/2018. There was noted to be pronounced activity throughout the right hemithorax, felt to be associated with inflammation in the pleura related to the pleurodesis or VATS. It was noted to have calcifications associated with it. A 2 cm diameter pleural based lesion was thought to possibly represent early tumor involvement. An abnormality in a left anterior rib was felt to be suspicious for rib fracture. A focus involving a posterior rib on the right side was thought be consistent with early bone metastasis or inflammation or fracture. There were lesions noted in the pelvic bone and right femur which were felt to be consistent with metastatic bone lesions. MRI of the brain on 05/06/2018 showed rather pronounced deep white matter disease felt to possibly represent a demyelinating process versus pronounced small vessel ischemic changes. It did not appear to be due to metastatic disease. Bone scan on 05/08/2018 showed multiple areas of abnormal uptake involving the left hemipelvis, right femur, multiple ribs, thoracic spine, and likely a small focus in the cervical spine. On 05/22/[address] directed needle biopsy of the lesion in the left ilium. Pathology was consistent with metastatic adenocarcinoma. The tumor cells were positive for CK7, TTF-1, and Napsin A. He was seen for a follow-up visit on 05/29/2018. At that point he did appear to be having significant bone pain associated with the metastatic involvement. As it did include weightbearing areas, I opted to refer him for palliative radiation. In the meantime, I also requested additional pathologic studies, including a PD-L1 immunostain, which showed low PD-L1 expression at 5%. In addition, the tumor cells were tested and found to be negative for EGFR mutations and for the ALK and ROS1 gene rearrangements. He was seen here on 07/02/2018 to initiate chemotherapy with pembrolizumab in combination with carboplatin and pemetrexed. He had multiple new complaints including low-grade fever, increased shortness of breath, and new pain and swelling in both legs. He was found to have extensive deep vein thrombosis in both legs and very extensive pulmonary emboli bilaterally. He began anticoagulation with Lovenox, and he was observed overnight in the hospital. He then returned on 07/08/2018 to begin cycle 1 of carboplatin/pemetrexed in combination with pembrolizumab. He also started denosumab injections for the metastatic bone involvement. He tolerated the chemotherapy well, and he was able to continue with cycle 2 of carboplatin/Alimta/pembrolizumab on 07/29/2018. During that time his anticoagulation was transitioned to a apixaban. He continued to tolerate the chemotherapy with acceptable toxicity. He proceeded with cycle 3 on 08/19/2018 and was cycle 4 on 09/08/2018. On 09/19/2018 he was admitted to [facility] with shortness of breath and hypoxia. His clinical evaluation was consistent with pneumonitis associated with his immunotherapy. He was given high-dose steroid therapy. His clinical course was complicated by left pneumothorax with persistent air leak. He was eventually discharged home on 10/08/2018 with the chest tube in place. He is on 30 mg of prednisone daily. Just prior to discharge, he also was found to have Clostridium difficile colitis, for which he began treatment with oral vancomycin. During follow-up he continued to have severe shortness of breath and limited activity tolerance. He attempted to remove his chest to begin last week, but it had to be reinserted within a couple of hours. His restaging CT scans on 11/13/2018 showed no evidence of recurrent pulmonary embolus. There was a persistent small residual filling defect in the posterior basal segment right lower lobe pulmonary artery branch. There was improvement in the previously noted right upper, middle, and lower lobe pneumonia compared to the 08/27/2018 study. There was evidence of left hemithorax talc pleurodesis and placement of lower third left hemithorax anterior pleural space pigtail catheter. A right hilar lymph node appears stable. There is no evidence of other significant lymphadenopathy. A T5 vertebral body metastatic lesion appeared stable. The abdomen and pelvis shows stable appearance of a mixed density metastatic lesion in the left ilium. There was subcutaneous soft tissue edema noted in the left flank. There were no other significant findings. I had seen him for a follow-up visit on 11/13/2018. He was showing some improvement in his clinical status. At that point he continued monthly denosumab injections for the metastatic bone involvement, but in the absence of any evidence of disease progression, I opted to keep his chemotherapy on hold. In the meantime, he continued follow-up with Dr. Orlando and he was started on diuretic therapy for cor pulmonale. He continued to have a high oxygen requirement. Restaging CT scans from 06/02/2019 showed continued pleural scarring and thickening with volume loss on the right side. There was also pronounced pleural scarring and thickening involving the left lung, and there was thickening of the soft tissues between the ribs and the tip of the scapula on the left side that appeared very worrisome for tumor involvement in the soft tissues. There was pronounced soft tissue thickening and abnormal enhancement of the tissue extending along the left lateral chest wall, possibly related to the previous procedures. Metastatic disease, though, was not excluded. There appear to be a couple of small cysts in the liver. There was some inhomogeneity involving the right finger and the left iliac wing, appearance of which was not significantly changed from the previous PET/CT. With those findings, he continued denosumab injections for the metastatic bone involvement, but he otherwise continued observation/symptomatic management for the lung cancer. Restaging PET/CT on 09/09/2019 showed pronounced increased activity in the pleural spaces of both hemithoraces, unclear as to whether it was due post therapeutic changes or to new spread of tumor. A focus of activity in the rectum was noted to be fairly intense, but unchanged compared to the February study. The bony metastases were noted to have markedly improved. He continued treatment with denosumab at a 3-month interval. A restaging PET/CT on 12/15/2019 showed an area of increased metabolic activity along the left lateral chest wall just inferior to the scapula, very similar in appearance to the prior study. Bilateral talc pleurodesis changes were again noted, also similar to the prior study. A new FDG avid mass was noted within the left lateral limb of the adrenal gland measuring 1.5 cm, SUV 4.9, worrisome for metastatic disease. Also noted was a small lymph node within the aortocaval region in the mid abdomen at the L3 level with mild FDG activity, SUV 4.8, also suspicious for possible metastasis. Robust activity was again noted within the region of the lower rectum. As of his follow-up visit on 12/22/2019 he appeared stable clinically, and we opted to continue with observation/expectant management. At that point I had transitioned his anticoagulation from Lovenox to apixaban. On 02/28/2020 he had presented to the [facility] emergency room with acute onset of weakness in the left arm and hand. He had some transient visual impairment and he also had some stumbling, but the main problem was with his left hand, particularly his fine motor skills. His brain MRI with and without contrast showed restricted diffusion along the central sulcus involving the frontal and parietal lobe and an area of restricted diffusion along the cortex of the right parietal lobe. Multiple small areas of restricted diffusion were noted within the right frontal lobe, bilateral parietal lobes, bilateral occipital lobes, and the bilateral cerebellum. 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 Also noted were enhancing nodules within the bilateral cerebellum, the largest measuring 7 x 4 mm, which were felt to be suggestive of metastatic disease. There was no associated edema. His anticoagulation was changed back to Lovenox, and his symptoms improved with conservative management. His medical history is otherwise significant for underlying COPD and dyslipidemia. He had smoked in the past, but he quit smoking in the . He had screening colonoscopy on 04/17/2012. The only finding was a hyperplastic polyp. INTERIM HISTORY: I had seen him for a follow-up visit on 03/04/2020. At that point his symptoms had not completely resolved, but they were definitely improving. I was able to review the MRI disc with 1 of the radiologist. One lesion in the lateral left cerebellar hemisphere did appear more prominent and it appeared more suspicious for a metastatic lesion. The other cerebellar lesions were smaller and were felt to be indeterminate. Restaging CT scans of the chest, abdomen, and pelvis on 03/08/2020 showed no change in the pleural calcification versus pleurodesis and there was unchanged sclerosis in the left hilum and left initial tuberosity. An aortocaval lymph node was noted to have decreased in size. However, there was further increase in the size of the left adrenal mass to 3.5 x 2.6 cm compared to 14 mm on the previous study. A 5 mm low-density focus in the right lobe of the liver appeared stable. His repeat brain MRI on 04/04/2020 showed several small enhancing lesions in the right and left cerebellum, superior right frontal and superior right parietal areas which appeared consistent with metastatic disease. There were evolving areas of infarction in the right parietal and right occipital areas with multiple other tiny areas of infarction in the right and left cerebellum, again consistent with embolic infarctions. With those findings, he underwent palliative whole brain radiation. As his CT scans had also shown evidence of what appeared to be isolated disease progression in the right adrenal gland, I had recommended that that site also be treated. He completed radiation on 04/29/2020, both sites to a total dose of 3000 cGy. During that time he had developed new stroke symptoms in the left arm/hand despite being on anticoagulation with Lovenox. At that point I did opt to check his anti-Xa level, and it actually was a little above therapeutic range. He continued Lovenox at the same dosage. His repeat MRI on 06/21/2020 reported a new lesion anteriorly in the frontal lobe region on the right side measuring 1.8 x 2.6 x 2.9 cm. There was a large amount of associated vasogenic edema with slight midline shift estimated at 2 to 3 mm. It was felt that the appearance was most consistent with a new metastatic process. The old lesion was noted to appear basically unchanged. Small focal areas seen previously in the left cerebellum appeared improved. The larger right parietal occipital lesion showed marked improvement. Restaging CT scans of the chest, abdomen, and pelvis on 06/22/2020 showed decreasing size of left adrenal mass with no evidence of new metastatic lesions. With those findings he was started on dexamethasone and he then had neurosurgery consultation with Dr. Nicole in [place]. At least initially, observation was recommended as it was thought that the MRI changes could possibly be due to radiation. I did have him continue dexamethasone, but with the dosage reduced to 2 mg daily. Repeat brain MRI on 07/21/2020 showed slight decrease in size of the large lesion near the sylvian fissure on the right side. Some component of post therapy calcification was suspected. There was still evidence of vasogenic edema involving both anterior and posterior lesions in the right parietal lobe. There were no enhancing lesions identified in the cerebellum, brainstem, temporal lobes, or in the left side of the brain. Overall the appearance was slightly improved. There was no indication of any worsening. At his follow-up visit on 07/25/2020 he continued to have fairly marginal performance status, but he was showing some improvement clinically. At that point his dexamethasone dosage was decreased to 1 mg daily, and it was subsequently tapered further to 0.5 mg daily. Repeat brain MRI on 08/18/2020 showed continued improvement in the appearance of the right frontal lobe with only a small focus of enhancing tissue in the more anterior lesion, at that point measuring 2.2 cm. There was still some associated edema. There was no enhancement associated with the more posterior lesion. A tiny focus of enhancement was noted in the left cerebellum, felt to be most likely vascular in nature and unchanged from previous studies. At his follow-up visit on 08/22/2020 he reported new pain in the lower back and pelvic area. Evaluation with MRI of the lumbar spine on 08/31/2020 showed multilevel degenerative changes. There was severe bilateral facet arthropathy at L4-L5, but there was no significant neural foraminal stenosis or significant spinal canal stenosis. There were no suspicious osseous lesions noted. 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 A bone lesion in the left ischium measuring 7 mm was indeterminate. There was unusual signal abnormality within the left iliac bone, also of uncertain significance. Edema was noted within the left iliac us musculature, within the bilateral abductor musculature, and within the gluteus musculature bilaterally, left worse than right. A CT pulmonary angiogram on 09/14/2020 showed no evidence of pulmonary embolism and no evidence of supraclavicular mass. A nodule within the medial margin of the right lung measured 16 x 11 mm. Areas of scattered atelectasis or scarring were noted in both lungs. Restaging PET/CT on 09/20/2020 showed pleural-based calcified activity bilaterally which was hypermetabolic and felt likely to be associated with previous bilateral pleurodesis. There was extremely intense activity in the low pelvic region, suspected to be in the rectum and very worrisome for rectal cancer. Numerous subcutaneous nodules involving both legs/thighs were also hypermetabolic and there were additional subcutaneous nodules associated with both femora. I have the opportunity to review both studies with the radiologist, and it did appear that the subcutaneous lesions are associated with sites of Lovenox injection. Due to the persistent uptake in the rectal region, he was referred to Dr. Ashton for colonoscopy. He apparently had some polyps removed, but there was no malignancy identified. In the meantime, as his performance status had continued to decline, I also recommended that he restart dexamethasone. At his follow-up visit on 11/01/2020 he was feeling considerably better, and he continued the dexamethasone at 2 mg daily. He is seen for a followup visit. 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 It is being managed with antibiotic and pain pills. Overall he has been more active since he restarted the dexamethasone. He is able to do a little bit of light work. His ECOG score is 2. Appetite is good. He has not had fever. He sometimes has sweating at night. He has some shortness of breath, but his breathing is no worse. His cough had worsened, but it is somewhat better now with the antibiotic. He has not had chest pain. He has no GI or complaints. He has had some pain in the right hip area, mainly in the mornings. It is managed adequately. He has no other joint or bone pain. He continues to have problems with balance, but he does not complain of headache and he does not have focal neurologic symptoms. Medications: Citalopram Hydrobromide 1 Tablet (of 20 mg) Oral daily, Desmopressin Acetate 1 spray(s) (of 1.5 mg/mL) Solution Nasal b.i.d., Lasix 1 Tablet (of 40 mg) Oral daily PRN, Lovenox 120 mg (of 300 mg/3ml) Injection daily, Morphine Sulfate ER 1 Tablet (of 15 mg) Tablet, controlled release Oral q 12 hours, oxygen 3 L Aerosol at bedtime, Potassium 1 (99 mg) Tablet Oral PRN, Rosuvastatin Calcium 1 (10 mg) Tablet Oral daily, Sodium Chloride 1 Tablet Oral b.i.d., Zofran 1 (4 mg) Tablet Oral q 4 hours Allergies: No Known Allergies. Vital Signs: Performed on Dec 12, 2020 15:51 Height - 71.00 in Weight - 187.8 lbs (HIGH) BSA - 2.05 sq.m BMI - 26.19 Temperature - 98.7 F Pulse - 67 /min Respiration - 18 /min BP - 115/74 mm(hg) O2 Sat - 96 % Pain - 0 Fatigue - 3 Physical Examination: Constitutional - He appears somewhat weak generally. He has mildly cushingoid, Eyes - Sclerae nonicteric. Conjunctivae clear, ENMT - There is an area of discoloration in the mucosa of the left lower gum, Hematologic/Lymphatic - No cervical, clavicular, or axillary adenopathy, Respiratory - Lungs show slightly coarse breath sounds anteriorly, Cardiovascular - Heart rhythm is regular. There is no murmur, gallop, or rub noted, Abdomen - Mildly distended but soft. Liver and spleen are not enlarged. There is no abdominal mass or ascites noted and there is no inguinal adenopathy, Extremities - No edema. He has fairly extensive purpura, Neurologic - No focal deficits noted. Lab/Imaging: Test performed on Dec 12, 2020 14:49 Magnesium 2.1 mg/dL Sodium 139 mmol/L Potassium 4.4 mmol/L Chloride 102 mmol/L CO2 25 mmol/L Anion Gap 16.4 BUN 15 mg/dL Creatinine 0.7 mg/dL Cr Clearance (Est) 129.8900 mL/min eGFR 115.0 mL/min Glucose 108 mg/dL Osmolality - Calculated 289 mOsm/kg Calcium 9.7 mg/dL Protein, Total 6.0 g/dL Albumin 3.9 g/dL Globulin 2.1 g/dL Bilirubin, Total 0.5 mg/dL ALT (SGPT) 50 U/L AST (SGOT) 17 U/L Alkaline Phosphatase 84 IU/L WBC 5.6 10 3/uL RBC 4.29 10 6/uL HGB 13.3 g/dL HCT 41.1 % MCV 95.8 fL MCH 31.0 pg MCHC 32.4 g/dL RDW 14.2 % Platelet Count 206 10 3/cmm MPV 9.2 fL Neutrophils 4.30 10 3/uL Lymphocytes 0.8 10 3/uL Monocytes 0.3 10 3/uL Eosinophils 0.0 10 3/uL Basophils 0.0 10 3/uL Neutrophil % 77.3 % Lymphocyte % 14.9 % Monocyte % 5.9 % Eosinophil % 0.4 % Basophils % 0.4 % NRBC % 0 % Problem List: 1. Adenocarcinoma (bronchoalveolar carcinoma) involving the upper lobe of the right lung. His disease was stage IA (T1a, N0, M0) at initial diagnosis in 2012, but with subsequent progression to stage IV disease (M1b) with evidence of recurrence in the right lung and with multiple sites of metastatic bone involvement, including biopsy-proven metastatic adenocarcinoma involving the left ilium in April 2018. 2. 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 3. He developed severe pneumonitis while on immunotherapy with pembrolizumab. 4. COPD. 5. Hyperlipidemia. Problems Addressed with this Encounter and Plan: 1. Patient with adenocarcinoma (bronchoalveolar carcinoma) involving the upper lobe of the right lung. His disease was stage IA (T1a, N0, M0) at initial diagnosis in 2012. His initial treatment included VATS with a bi-segmentectomy of the right upper lobe. The procedure also included resection of right upper lobe ruptured bleb and pleurodesis. In 2018 he had progression to stage IV disease (M1b) with evidence of recurrence in the right lung and with multiple sites of metastatic bone involvement, including biopsy-proven metastatic adenocarcinoma involving the left ilium. On further pathologic analysis his tumor was found to be negative for EGFR mutations and for the ALK and ROS 1 gene rearrangements. A PD-L1 immunostain showed low expression at less than 5%. Given those findings, he began systemic therapy with carboplatin/pemetrexed chemotherapy in combination with pembrolizumab. He had a very good objective response, but treatment was subsequently discontinued when he developed severe treatment related pneumonitis. During subsequent follow-up he had evidence of further metastatic involvement in the brain and in the left adrenal gland. He was given palliative radiation to both sites, completed on 04/29/2020. His repeat brain MRI on 06/20/2020 showed a new lesion anteriorly in the frontal lobe region on the right side measuring 1.8 x 2.6 x 2.9 cm. There was a large amount of associated vasogenic edema, and it was felt that the appearance was most consistent with a new metastatic process. He had neurosurgery consultation with Dr. Nicole in [place], and it was recommended that he initially continue observation, as it was felt that the changes could possibly be due to radiation. His repeat MRI showed slight improvement. During followup there has been continued decline in his overall clinical status. His recent CT pulmonary angiogram and restaging PET/CT showed no evidence for new thromboembolism nor any evidence for new sites of metastatic disease. The PET/CT finding of most concern is activity noted in the rectal area. It is not a new finding, but the FDG activity has increased. He was found on colonoscopy to have tubular adenomas. There was no malignancy identified. His management has otherwise been symptomatic/supportive. With his follow-up visit on 09/30/2020 his performance status had continued to decline, and at that point I did opt to have him restart dexamethasone. Since then he has been feeling much better, though he still has limited activity tolerance. His most recent MRI showed no evidence of progression of the metastatic brain disease and no evidence of any new thromboembolism. He will continue dexamethasone 2 mg daily. I will see him again in 1 month. He will have restaging MRI and CT scans prior to that visit. 2. Metastatic bone involvement. He was given palliative radiation to the area of metastatic involvement in the left ilium. He also had been on treatment with denosumab, administered at 3-month intervals. He now has been found to have evidence of osteonecrosis of the mandible, and the denosumab will now be discontinued. 3. 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 The latter occurred while on anticoagulation with apixaban, and his anticoagulation was subsequently transitioned back to Lovenox. Thus far during follow-up there has been no documentation of any further thromboembolism. Signed By: Gil Castle M.D. <<Signature on File>>
== END 2020-12-12 14:20 | disposition home or self-care (01) ==
LOC: ONCMED 14:26
PROVIDERS: PCP Student in an Organized Health Care Education/Training Program; Visit Provider Internal Medicine Medical Oncology
DX: C34.11 Malignant neoplasm of upper lobe, right bronchus or lung (principal); C79.51 Secondary malignant neoplasm of bone; C79.31 Secondary malignant neoplasm of brain; C79.72 Secondary malignant neoplasm of left adrenal gland; Z92.21 Personal history of antineoplastic chemotherapy; Z92.3 Personal history of irradiation; E78.5 Hyperlipidemia, unspecified; J44.9 Chronic obstructive pulmonary disease, unspecified; Z79.899 Other long term (current) drug therapy
CPT/HCPCS: 36591; 80053; 83735; 85025; 99214

== ENCOUNTER 2021-01-26 12:49 | Outpatient (CLI) | payer MEDICARE, SELFPAY ==
--- NOTE | 2021-01-29 14:28 | ONC FU_ITS ---
Dr. Castle Patient Follow-Up Note Patient: Gabriel Yanez Unit #: [id number]: [id number] Dicatated By: Gil Castle M.D.Date of Visit:Jan 26, 2021 Onc Med Follow-up/Prog Note Chief Complaint: Lung cancer. 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 His disease was stage IA (T1a, N), M0) at initial diagnosis in 2012, but with subsequent progression to stage IV ( M1b). He had presented with a spontaneous pneumothorax and a right upper lobe nodule in 2012. On 02/28/2013 because of persistent air leak he required VATS with a bi-segmentectomy of the right upper lobe, resection of right upper lobe ruptured bleb, and pleurodesis. No thoracic lymphadenectomy was performed. His surgical pathology showed a 1.5 cm minimally invasive adenocarcinoma with negative margins. Clinically there was no distant or regional metastatic disease reported. Thus, his disease was stage IA (T1a, N0, M0), and he was followed expectantly. His surveillance CT of the chest on 09/01/2014 showed post operative changes in the right upper lobe with stable area of nodular thickening and scarring. He was first seen by Dr. Perez on 01/10/2015. His restaging CT of the chest on 03/22/2015 was unchanged. Further restaging CT on 09/06/2015 showed scarring, but no evidence of metastatic disease. He continued on observation/expectant management. His subsequent surveillance CT scans had shown stable findings until March 2018 when his repeat chest CT showed an increase in the size of a pleural-based densities in the upper right chest and in the medial mid right chest, suspicious for pleural-based metastatic disease. He had further evaluation with restaging PET/CT on 04/28/2018. There was noted to be pronounced activity throughout the right hemithorax, felt to be associated with inflammation in the pleura related to the pleurodesis or VATS. It was noted to have calcifications associated with it. A 2 cm diameter pleural based lesion was thought to possibly represent early tumor involvement. An abnormality in a left anterior rib was felt to be suspicious for rib fracture. A focus involving a posterior rib on the right side was thought be consistent with early bone metastasis or inflammation or fracture. There were lesions noted in the pelvic bone and right femur which were felt to be consistent with metastatic bone lesions. MRI of the brain on 05/06/2018 showed rather pronounced deep white matter disease felt to possibly represent a demyelinating process versus pronounced small vessel ischemic changes. It did not appear to be due to metastatic disease. Bone scan on 05/08/2018 showed multiple areas of abnormal uptake involving the left hemipelvis, right femur, multiple ribs, thoracic spine, and likely a small focus in the cervical spine. On 05/22/[address] directed needle biopsy of the lesion in the left ilium. Pathology was consistent with metastatic adenocarcinoma. The tumor cells were positive for CK7, TTF-1, and Napsin A. He was seen for a follow-up visit on 05/29/2018. At that point he did appear to be having significant bone pain associated with the metastatic involvement. As it did include weightbearing areas, I opted to refer him for palliative radiation. In the meantime, I also requested additional pathologic studies, including a PD-L1 immunostain, which showed low PD-L1 expression at 5%. In addition, the tumor cells were tested and found to be negative for EGFR mutations and for the ALK and ROS1 gene rearrangements. He was seen here on 07/02/2018 to initiate chemotherapy with pembrolizumab in combination with carboplatin and pemetrexed. He had multiple new complaints including low-grade fever, increased shortness of breath, and new pain and swelling in both legs. He was found to have extensive deep vein thrombosis in both legs and very extensive pulmonary emboli bilaterally. He began anticoagulation with Lovenox, and he was observed overnight in the hospital. He then returned on 07/08/2018 to begin cycle 1 of carboplatin/pemetrexed in combination with pembrolizumab. He also started denosumab injections for the metastatic bone involvement. He tolerated the chemotherapy well, and he was able to continue with cycle 2 of carboplatin/Alimta/pembrolizumab on 07/29/2018. During that time his anticoagulation was transitioned to a apixaban. He continued to tolerate the chemotherapy with acceptable toxicity. He proceeded with cycle 3 on 08/19/2018 and was cycle 4 on 09/08/2018. On 09/19/2018 he was admitted to [facility] with shortness of breath and hypoxia. His clinical evaluation was consistent with pneumonitis associated with his immunotherapy. He was given high-dose steroid therapy. His clinical course was complicated by left pneumothorax with persistent air leak. He was eventually discharged home on 10/08/2018 with the chest tube in place. He is on 30 mg of prednisone daily. Just prior to discharge, he also was found to have Clostridium difficile colitis, for which he began treatment with oral vancomycin. During follow-up he continued to have severe shortness of breath and limited activity tolerance. He attempted to remove his chest to begin last week, but it had to be reinserted within a couple of hours. His restaging CT scans on 11/13/2018 showed no evidence of recurrent pulmonary embolus. There was a persistent small residual filling defect in the posterior basal segment right lower lobe pulmonary artery branch. There was improvement in the previously noted right upper, middle, and lower lobe pneumonia compared to the 08/27/2018 study. There was evidence of left hemithorax talc pleurodesis and placement of lower third left hemithorax anterior pleural space pigtail catheter. A right hilar lymph node appears stable. There is no evidence of other significant lymphadenopathy. A T5 vertebral body metastatic lesion appeared stable. The abdomen and pelvis shows stable appearance of a mixed density metastatic lesion in the left ilium. There was subcutaneous soft tissue edema noted in the left flank. There were no other significant findings. I had seen him for a follow-up visit on 11/13/2018. He was showing some improvement in his clinical status. At that point he continued monthly denosumab injections for the metastatic bone involvement, but in the absence of any evidence of disease progression, I opted to keep his chemotherapy on hold. In the meantime, he continued follow-up with Dr. Orlando and he was started on diuretic therapy for cor pulmonale. He continued to have a high oxygen requirement. Restaging CT scans from 06/02/2019 showed continued pleural scarring and thickening with volume loss on the right side. There was also pronounced pleural scarring and thickening involving the left lung, and there was thickening of the soft tissues between the ribs and the tip of the scapula on the left side that appeared very worrisome for tumor involvement in the soft tissues. There was pronounced soft tissue thickening and abnormal enhancement of the tissue extending along the left lateral chest wall, possibly related to the previous procedures. Metastatic disease, though, was not excluded. There appear to be a couple of small cysts in the liver. There was some inhomogeneity involving the right finger and the left iliac wing, appearance of which was not significantly changed from the previous PET/CT. With those findings, he continued denosumab injections for the metastatic bone involvement, but he otherwise continued observation/symptomatic management for the lung cancer. Restaging PET/CT on 09/09/2019 showed pronounced increased activity in the pleural spaces of both hemithoraces, unclear as to whether it was due post therapeutic changes or to new spread of tumor. A focus of activity in the rectum was noted to be fairly intense, but unchanged compared to the February study. The bony metastases were noted to have markedly improved. He continued treatment with denosumab at a 3-month interval. A restaging PET/CT on 12/15/2019 showed an area of increased metabolic activity along the left lateral chest wall just inferior to the scapula, very similar in appearance to the prior study. Bilateral talc pleurodesis changes were again noted, also similar to the prior study. A new FDG avid mass was noted within the left lateral limb of the adrenal gland measuring 1.5 cm, SUV 4.9, worrisome for metastatic disease. Also noted was a small lymph node within the aortocaval region in the mid abdomen at the L3 level with mild FDG activity, SUV 4.8, also suspicious for possible metastasis. Robust activity was again noted within the region of the lower rectum. As of his follow-up visit on 12/22/2019 he appeared stable clinically, and we opted to continue with observation/expectant management. At that point I had transitioned his anticoagulation from Lovenox to apixaban. On 02/28/2020 he had presented to the [facility] emergency room with acute onset of weakness in the left arm and hand. He had some transient visual impairment and he also had some stumbling, but the main problem was with his left hand, particularly his fine motor skills. His brain MRI with and without contrast showed restricted diffusion along the central sulcus involving the frontal and parietal lobe and an area of restricted diffusion along the cortex of the right parietal lobe. Multiple small areas of restricted diffusion were noted within the right frontal lobe, bilateral parietal lobes, bilateral occipital lobes, and the bilateral cerebellum. 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 Also noted were enhancing nodules within the bilateral cerebellum, the largest measuring 7 x 4 mm, which were felt to be suggestive of metastatic disease. There was no associated edema. His anticoagulation was changed back to Lovenox, and his symptoms improved with conservative management. His medical history is otherwise significant for underlying COPD and dyslipidemia. He had smoked in the past, but he quit smoking in the . He had screening colonoscopy on 04/17/2012. The only finding was a hyperplastic polyp. INTERIM HISTORY: I had seen him for a follow-up visit on 03/04/2020. At that point his symptoms had not completely resolved, but they were definitely improving. I was able to review the MRI disc with 1 of the radiologist. One lesion in the lateral left cerebellar hemisphere did appear more prominent and it appeared more suspicious for a metastatic lesion. The other cerebellar lesions were smaller and were felt to be indeterminate. Restaging CT scans of the chest, abdomen, and pelvis on 03/08/2020 showed no change in the pleural calcification versus pleurodesis and there was unchanged sclerosis in the left hilum and left initial tuberosity. An aortocaval lymph node was noted to have decreased in size. However, there was further increase in the size of the left adrenal mass to 3.5 x 2.6 cm compared to 14 mm on the previous study. A 5 mm low-density focus in the right lobe of the liver appeared stable. His repeat brain MRI on 04/04/2020 showed several small enhancing lesions in the right and left cerebellum, superior right frontal and superior right parietal areas which appeared consistent with metastatic disease. There were evolving areas of infarction in the right parietal and right occipital areas with multiple other tiny areas of infarction in the right and left cerebellum, again consistent with embolic infarctions. With those findings, he underwent palliative whole brain radiation. As his CT scans had also shown evidence of what appeared to be isolated disease progression in the left adrenal gland, I had recommended that that site also be treated. He completed radiation on 04/29/2020, both sites to a total dose of 3000 cGy. During that time he had developed new stroke symptoms in the left arm/hand despite being on anticoagulation with Lovenox. At that point I did opt to check his anti-Xa level, and it actually was a little above therapeutic range. He continued Lovenox at the same dosage. His repeat MRI on 06/21/2020 reported a new lesion anteriorly in the frontal lobe region on the right side measuring 1.8 x 2.6 x 2.9 cm. There was a large amount of associated vasogenic edema with slight midline shift estimated at 2 to 3 mm. It was felt that the appearance was most consistent with a new metastatic process. The old lesion was noted to appear basically unchanged. Small focal areas seen previously in the left cerebellum appeared improved. The larger right parietal occipital lesion showed marked improvement. Restaging CT scans of the chest, abdomen, and pelvis on 06/22/2020 showed decreasing size of left adrenal mass with no evidence of new metastatic lesions. With those findings he was started on dexamethasone and he then had neurosurgery consultation with Dr. Nicole in [place]. At least initially, observation was recommended as it was thought that the MRI changes could possibly be due to radiation. I did have him continue dexamethasone, but with the dosage reduced to 2 mg daily. Repeat brain MRI on 07/21/2020 showed slight decrease in size of the large lesion near the sylvian fissure on the right side. Some component of post therapy calcification was suspected. There was still evidence of vasogenic edema involving both anterior and posterior lesions in the right parietal lobe. There were no enhancing lesions identified in the cerebellum, brainstem, temporal lobes, or in the left side of the brain. Overall the appearance was slightly improved. There was no indication of any worsening. At his follow-up visit on 07/25/2020 he continued to have fairly marginal performance status, but he was showing some improvement clinically. At that point his dexamethasone dosage was decreased to 1 mg daily, and it was subsequently tapered further to 0.5 mg daily. Repeat brain MRI on 08/18/2020 showed continued improvement in the appearance of the right frontal lobe with only a small focus of enhancing tissue in the more anterior lesion, at that point measuring 2.2 cm. There was still some associated edema. There was no enhancement associated with the more posterior lesion. A tiny focus of enhancement was noted in the left cerebellum, felt to be most likely vascular in nature and unchanged from previous studies. At his follow-up visit on 08/22/2020 he reported new pain in the lower back and pelvic area. Evaluation with MRI of the lumbar spine on 08/31/2020 showed multilevel degenerative changes. There was severe bilateral facet arthropathy at L4-L5, but there was no significant neural foraminal stenosis or significant spinal canal stenosis. There were no suspicious osseous lesions noted. 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 A bone lesion in the left ischium measuring 7 mm was indeterminate. There was unusual signal abnormality within the left iliac bone, also of uncertain significance. Edema was noted within the left iliac us musculature, within the bilateral abductor musculature, and within the gluteus musculature bilaterally, left worse than right. A CT pulmonary angiogram on 09/14/2020 showed no evidence of pulmonary embolism and no evidence of supraclavicular mass. A nodule within the medial margin of the right lung measured 16 x 11 mm. Areas of scattered atelectasis or scarring were noted in both lungs. Restaging PET/CT on 09/20/2020 showed pleural-based calcified activity bilaterally which was hypermetabolic and felt likely to be associated with previous bilateral pleurodesis. There was extremely intense activity in the low pelvic region, suspected to be in the rectum and very worrisome for rectal cancer. Numerous subcutaneous nodules involving both legs/thighs were also hypermetabolic and there were additional subcutaneous nodules associated with both femora. I have the opportunity to review both studies with the radiologist, and it did appear that the subcutaneous lesions are associated with sites of Lovenox injection. Due to the persistent uptake in the rectal region, he was referred to Dr. Ashton for colonoscopy. He apparently had some polyps removed, but there was no malignancy identified. In the meantime, as his performance status had continued to decline, I also recommended that he restart dexamethasone. At his follow-up visit on 11/01/2020 he was feeling considerably better, and he continued the dexamethasone at 2 mg daily. His repeat brain MRI on 01/04/2021 showed no new or enlarging enhancing lesions. Encephalomalacia in the posterior right frontal lobe appeared unchanged. His restaging CT scans showed no new changes in the chest area. The right adrenal gland appeared unchanged. There was increase in the lobulated, elongated area associated with the left adrenal gland measuring 5 x 1.9 x 2.1 cm. It appeared to have progressed from the prior study. Numerous small periaortic lymph nodes appeared slightly more prominent. The largest measured 1.1 cm. He is seen for a followup visit. He says he has been feeling pretty good. He does have limited activity, but he has been able to do some light work. ECOG score is 1. He has good appetite. He has not had fever. He sometimes has sweating, but not a lot. He had developed exposed bone in his jaw, presumably due to the denosumab injections, and he says that has improved. He does not have cough, and he does not complain of shortness of breath or chest pain. He has no GI or complaints. He has been having pain in the posterior right hip area. He mainly has the pain when he first gets up in the morning, and it does tend to be worse when he is standing in 1 spot. It tends to get better gradually during the day. He has no other joint or bone pain. He does not complain of headache. He is still prone to being wobbly. He has no numbness/paresthesia or other focal neurologic symptoms. Medications: Citalopram Hydrobromide 1 Tablet (of 20 mg) Oral daily, Desmopressin Acetate 1 spray(s) (of 1.5 mg/mL) Solution Nasal b.i.d., Lasix 1 Tablet (of 40 mg) Oral daily PRN, Lovenox 120 mg (of 300 mg/3ml) Injection daily, Morphine Sulfate ER 1 Tablet (of 15 mg) Tablet, controlled release Oral q 12 hours, oxygen 3 L Aerosol at bedtime, Potassium 1 (99 mg) Tablet Oral PRN, Rosuvastatin Calcium 1 (10 mg) Tablet Oral daily, Sodium Chloride 1 Tablet Oral b.i.d., Zofran 1 (4 mg) Tablet Oral q 4 hours Allergies: No Known Allergies. Vital Signs: Performed on Jan 26, 2021 14:09 Height - 71.00 in Weight - 186 lbs (LOW) BSA - 2.04 sq.m BMI - 25.94 Temperature - 98.6 F Pulse - 75 /min Respiration - 18 /min BP - 113/72 mm(hg) O2 Sat - 96 % Pain - 0 Fatigue - 5 Physical Examination: Constitutional - He appears somewhat weak generally, Eyes - Sclerae nonicteric. Conjunctivae clear, ENMT - No lesions noted in the oral cavity, Hematologic/Lymphatic - No cervical, clavicular, or axillary adenopathy, Respiratory - Lungs sound clear, Cardiovascular - Heart rhythm is regular. There is no murmur, gallop, or rub noted, Abdomen - Mildly distended. Liver and spleen are not enlarged. There is no abdominal mass or ascites noted and there is no inguinal adenopathy, Extremities - There is slight erythema in the lower extremities, but there is no edema. He has fairly extensive purpura, Neurologic - No focal deficits noted. Lab/Imaging: Test performed on Dec 12, 2020 14:49 Magnesium 2.1 mg/dL Sodium 139 mmol/L Potassium 4.4 mmol/L Chloride 102 mmol/L CO2 25 mmol/L Anion Gap 16.4 BUN 15 mg/dL Creatinine 0.7 mg/dL Cr Clearance (Est) 129.8900 mL/min eGFR 115.0 mL/min Glucose 108 mg/dL Osmolality - Calculated 289 mOsm/kg Calcium 9.7 mg/dL Protein, Total 6.0 g/dL Albumin 3.9 g/dL Globulin 2.1 g/dL Bilirubin, Total 0.5 mg/dL ALT (SGPT) 50 U/L AST (SGOT) 17 U/L Alkaline Phosphatase 84 IU/L WBC 5.6 10 3/uL RBC 4.29 10 6/uL HGB 13.3 g/dL HCT 41.1 % MCV 95.8 fL MCH 31.0 pg MCHC 32.4 g/dL RDW 14.2 % Platelet Count 206 10 3/cmm MPV 9.2 fL Neutrophils 4.30 10 3/uL Lymphocytes 0.8 10 3/uL Monocytes 0.3 10 3/uL Eosinophils 0.0 10 3/uL Basophils 0.0 10 3/uL Neutrophil % 77.3 % Lymphocyte % 14.9 % Monocyte % 5.9 % Eosinophil % 0.4 % Basophils % 0.4 % NRBC % 0 % Problem List: 1. Adenocarcinoma (bronchoalveolar carcinoma) involving the upper lobe of the right lung. His disease was stage IA (T1a, N0, M0) at initial diagnosis in 2012, but with subsequent progression to stage IV disease (M1b) with evidence of recurrence in the right lung and with multiple sites of metastatic bone involvement, including biopsy-proven metastatic adenocarcinoma involving the left ilium in April 2018. 2. 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 3. He developed severe pneumonitis while on immunotherapy with pembrolizumab. 4. COPD. 5. Hyperlipidemia. Problems Addressed with this Encounter and Plan: 1. Patient with adenocarcinoma (bronchoalveolar carcinoma) involving the upper lobe of the right lung. His disease was stage IA (T1a, N0, M0) at initial diagnosis in 2012. His initial treatment included VATS with a bi-segmentectomy of the right upper lobe. The procedure also included resection of right upper lobe ruptured bleb and pleurodesis. In 2017 he had progression to stage IV disease (M1b) with evidence of recurrence in the right lung and with multiple sites of metastatic bone involvement, including biopsy-proven metastatic adenocarcinoma involving the left ilium. On further pathologic analysis his tumor was found to be negative for EGFR mutations and for the ALK and ROS 1 gene rearrangements. A PD-L1 immunostain showed low expression at less than 5%. Given those findings, he began systemic therapy with carboplatin/pemetrexed chemotherapy in combination with pembrolizumab. He had a very good objective response, but treatment was subsequently discontinued when he developed severe treatment related pneumonitis. During subsequent follow-up he had evidence of further metastatic involvement in the brain and in the left adrenal gland. He was given palliative radiation to both sites, completed on 04/29/2020. His repeat brain MRI on 06/20/2020 showed a new lesion anteriorly in the frontal lobe region on the right side measuring 1.8 x 2.6 x 2.9 cm. There was a large amount of associated vasogenic edema, and it was felt that the appearance was most consistent with a new metastatic process. He had neurosurgery consultation with Dr. Nicole in [place], and it was recommended that he initially continue observation, as it was felt that the changes could possibly be due to radiation. His repeat MRI showed slight improvement. During followup there has been continued decline in his overall clinical status. His recent CT pulmonary angiogram and restaging PET/CT showed no evidence for new thromboembolism nor any evidence for new sites of metastatic disease. The PET/CT finding of most concern is activity noted in the rectal area. It is not a new finding, but the FDG activity has increased. He was found on colonoscopy to have tubular adenomas. There was no malignancy identified. His management has otherwise been symptomatic/supportive. With his follow-up visit on 09/30/2020 his performance status had continued to decline, and at that point I did opt to have him restart dexamethasone. He has since then been doing much better clinically, and on his follow-up MRI studies there has been no evidence of progression of metastatic disease in the brain and there has been no evidence of any new strokes. On his restaging CT scans last month there appeared to be progression of the left adrenal metastasis. There was no other obvious disease progression. Unfortunately, options for further management are very limited. He is not interested in pursuing surgical resection. The likelihood of benefit with second line chemotherapy will be low, and is really not interested in pursuing that option either. I will check to see whether or not additional radiation may be feasible. He will otherwise just continue with observation/symptomatic management. I will tentatively plan a follow-up visit in 1 month. 2. Metastatic bone involvement. He was given palliative radiation to the area of metastatic involvement in the left ilium. He also had been on treatment with denosumab, administered at 3-month intervals. 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 3. 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 The latter occurred while on anticoagulation with apixaban, and his anticoagulation was subsequently transitioned back to Lovenox. Thus far during follow-up there has been no documentation of any further thromboembolism. Signed By: Gil Castle M.D. <<Signature on File>>
== END 2021-01-26 12:50 | disposition home or self-care (01) ==
LOC: ONCMED 12:52
PROVIDERS: PCP Student in an Organized Health Care Education/Training Program; Visit Provider Internal Medicine Medical Oncology
DX: C34.01 Malignant neoplasm of right main bronchus (principal); C79.51 Secondary malignant neoplasm of bone; I27.82 Chronic pulmonary embolism; Z79.01 Long term (current) use of anticoagulants; J44.9 Chronic obstructive pulmonary disease, unspecified; E78.5 Hyperlipidemia, unspecified; Z79.899 Other long term (current) drug therapy; Z92.21 Personal history of antineoplastic chemotherapy
CPT/HCPCS: 99214

== ENCOUNTER 2021-03-01 12:22 | Outpatient (CLI) | payer MEDICARE, SELFPAY ==
[2021-03-01 14:05] LABS: Basophils % 0.2 %; Eosinophils % 0.2 %; Hematocrit 40.7 % (42.0-52.0); Hemoglobin 13.1 g/dL (11.7-16.6); Lymphocytes # 0.6 10^3/uL (0.8-4.8); Lymphocytes % 13.1 %; Mean Corpuscular HGB Conc 32.2 g/dL (30.0-36.0); Mean Corpuscular Hemoglobin 31.1 pg (28.0-34.0); Mean Corpuscular Volume 96.7 fl (80-94); Mean Platelet Volume 9.4 fL (7.4-10.4); Monocytes # 0.3 10^3/uL (0.2-0.9); Monocytes % 6.8 %; Neutrophils # 3.62 10^3/uL (1.8-7.7); Neutrophils % 79.3 %; Nucleated Red Blood Cells % 0 %; Platelet Count 239 10^3/cmm (130-400); Red Blood Count 4.21 10^6/uL (4.1-5.3); Red Cell Distribution Width 12.8 % (12.1-15.1); White Blood Count 4.6 10^3/uL (4.0-10.0)
[2021-03-01 14:44] LABS: Alanine Aminotransferase 24 U/L (0-41); Albumin Level 3.7 g/dL (3.5-5.2); Alkaline Phosphatase 80 IU/L (40-130); Anion Gap 16.6 (5-19); Aspartate Amino Transferase 15 U/L (0-40); Blood Urea Nitrogen 15 mg/dL (8-23); Calcium 9.1 mg/dL (8.5-10.5); Carbon Dioxide 25 mmol/L (22-29); Chloride 101 mmol/L (98-107); Globulin 2.9 g/dL (1.3-4.6); Glucose 109 mg/dL (65-115); Osmolality Calculated 287 mOsm/kg (285-295); Potassium 4.6 mmol/L (3.5-5.1); Sodium 138 mmol/L (136-145); Total Bilirubin 0.3 mg/dL (0.15-1.2); Total Protein 6.6 g/dL (6.6-8.7)
--- NOTE | 2021-03-01 15:34 | ONC FU_ITS ---
Dr. Castle Patient Follow-Up Note Patient: Gabriel Yanez Unit #: [id number]: [id number] Dicatated By: Gil Castle M.D.Date of Visit:Mar 01, 2021 Onc Med Follow-up/Prog Note Chief Complaint: Lung cancer. 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 His disease was stage IA (T1a, N), M0) at initial diagnosis in 2012, but with subsequent progression to stage IV ( M1b). He had presented with a spontaneous pneumothorax and a right upper lobe nodule in 2012. On 02/28/2013 because of persistent air leak he required VATS with a bi-segmentectomy of the right upper lobe, resection of right upper lobe ruptured bleb, and pleurodesis. No thoracic lymphadenectomy was performed. His surgical pathology showed a 1.5 cm minimally invasive adenocarcinoma with negative margins. Clinically there was no distant or regional metastatic disease reported. Thus, his disease was stage IA (T1a, N0, M0), and he was followed expectantly. His surveillance CT of the chest on 09/01/2014 showed post operative changes in the right upper lobe with stable area of nodular thickening and scarring. He was first seen by Dr. Perez on 01/10/2015. His restaging CT of the chest on 03/22/2015 was unchanged. Further restaging CT on 09/06/2015 showed scarring, but no evidence of metastatic disease. He continued on observation/expectant management. His subsequent surveillance CT scans had shown stable findings until March 2018 when his repeat chest CT showed an increase in the size of a pleural-based densities in the upper right chest and in the medial mid right chest, suspicious for pleural-based metastatic disease. He had further evaluation with restaging PET/CT on 04/28/2018. There was noted to be pronounced activity throughout the right hemithorax, felt to be associated with inflammation in the pleura related to the pleurodesis or VATS. It was noted to have calcifications associated with it. A 2 cm diameter pleural based lesion was thought to possibly represent early tumor involvement. An abnormality in a left anterior rib was felt to be suspicious for rib fracture. A focus involving a posterior rib on the right side was thought be consistent with early bone metastasis or inflammation or fracture. There were lesions noted in the pelvic bone and right femur which were felt to be consistent with metastatic bone lesions. MRI of the brain on 05/06/2018 showed rather pronounced deep white matter disease felt to possibly represent a demyelinating process versus pronounced small vessel ischemic changes. It did not appear to be due to metastatic disease. Bone scan on 05/08/2018 showed multiple areas of abnormal uptake involving the left hemipelvis, right femur, multiple ribs, thoracic spine, and likely a small focus in the cervical spine. On 05/22/[address] directed needle biopsy of the lesion in the left ilium. Pathology was consistent with metastatic adenocarcinoma. The tumor cells were positive for CK7, TTF-1, and Napsin A. He was seen for a follow-up visit on 05/29/2018. At that point he did appear to be having significant bone pain associated with the metastatic involvement. As it did include weightbearing areas, I opted to refer him for palliative radiation. In the meantime, I also requested additional pathologic studies, including a PD-L1 immunostain, which showed low PD-L1 expression at 5%. In addition, the tumor cells were tested and found to be negative for EGFR mutations and for the ALK and ROS1 gene rearrangements. He was seen here on 07/02/2018 to initiate chemotherapy with pembrolizumab in combination with carboplatin and pemetrexed. He had multiple new complaints including low-grade fever, increased shortness of breath, and new pain and swelling in both legs. He was found to have extensive deep vein thrombosis in both legs and very extensive pulmonary emboli bilaterally. He began anticoagulation with Lovenox, and he was observed overnight in the hospital. He then returned on 07/08/2018 to begin cycle 1 of carboplatin/pemetrexed in combination with pembrolizumab. He also started denosumab injections for the metastatic bone involvement. He tolerated the chemotherapy well, and he was able to continue with cycle 2 of carboplatin/Alimta/pembrolizumab on 07/29/2018. During that time his anticoagulation was transitioned to a apixaban. He continued to tolerate the chemotherapy with acceptable toxicity. He proceeded with cycle 3 on 08/19/2018 and was cycle 4 on 09/08/2018. On 09/19/2018 he was admitted to [facility] with shortness of breath and hypoxia. His clinical evaluation was consistent with pneumonitis associated with his immunotherapy. He was given high-dose steroid therapy. His clinical course was complicated by left pneumothorax with persistent air leak. He was eventually discharged home on 10/08/2018 with the chest tube in place. He is on 30 mg of prednisone daily. Just prior to discharge, he also was found to have Clostridium difficile colitis, for which he began treatment with oral vancomycin. During follow-up he continued to have severe shortness of breath and limited activity tolerance. He attempted to remove his chest to begin last week, but it had to be reinserted within a couple of hours. His restaging CT scans on 11/13/2018 showed no evidence of recurrent pulmonary embolus. There was a persistent small residual filling defect in the posterior basal segment right lower lobe pulmonary artery branch. There was improvement in the previously noted right upper, middle, and lower lobe pneumonia compared to the 08/27/2018 study. There was evidence of left hemithorax talc pleurodesis and placement of lower third left hemithorax anterior pleural space pigtail catheter. A right hilar lymph node appears stable. There is no evidence of other significant lymphadenopathy. A T5 vertebral body metastatic lesion appeared stable. The abdomen and pelvis shows stable appearance of a mixed density metastatic lesion in the left ilium. There was subcutaneous soft tissue edema noted in the left flank. There were no other significant findings. I had seen him for a follow-up visit on 11/13/2018. He was showing some improvement in his clinical status. At that point he continued monthly denosumab injections for the metastatic bone involvement, but in the absence of any evidence of disease progression, I opted to keep his chemotherapy on hold. In the meantime, he continued follow-up with Dr. Orlando and he was started on diuretic therapy for cor pulmonale. He continued to have a high oxygen requirement. Restaging CT scans from 06/02/2019 showed continued pleural scarring and thickening with volume loss on the right side. There was also pronounced pleural scarring and thickening involving the left lung, and there was thickening of the soft tissues between the ribs and the tip of the scapula on the left side that appeared very worrisome for tumor involvement in the soft tissues. There was pronounced soft tissue thickening and abnormal enhancement of the tissue extending along the left lateral chest wall, possibly related to the previous procedures. Metastatic disease, though, was not excluded. There appear to be a couple of small cysts in the liver. There was some inhomogeneity involving the right finger and the left iliac wing, appearance of which was not significantly changed from the previous PET/CT. With those findings, he continued denosumab injections for the metastatic bone involvement, but he otherwise continued observation/symptomatic management for the lung cancer. Restaging PET/CT on 09/09/2019 showed pronounced increased activity in the pleural spaces of both hemithoraces, unclear as to whether it was due post therapeutic changes or to new spread of tumor. A focus of activity in the rectum was noted to be fairly intense, but unchanged compared to the February study. The bony metastases were noted to have markedly improved. He continued treatment with denosumab at a 3-month interval. A restaging PET/CT on 12/15/2019 showed an area of increased metabolic activity along the left lateral chest wall just inferior to the scapula, very similar in appearance to the prior study. Bilateral talc pleurodesis changes were again noted, also similar to the prior study. A new FDG avid mass was noted within the left lateral limb of the adrenal gland measuring 1.5 cm, SUV 4.9, worrisome for metastatic disease. Also noted was a small lymph node within the aortocaval region in the mid abdomen at the L3 level with mild FDG activity, SUV 4.8, also suspicious for possible metastasis. Robust activity was again noted within the region of the lower rectum. As of his follow-up visit on 12/22/2019 he appeared stable clinically, and we opted to continue with observation/expectant management. At that point I had transitioned his anticoagulation from Lovenox to apixaban. On 02/28/2020 he had presented to the [facility] emergency room with acute onset of weakness in the left arm and hand. He had some transient visual impairment and he also had some stumbling, but the main problem was with his left hand, particularly his fine motor skills. His brain MRI with and without contrast showed restricted diffusion along the central sulcus involving the frontal and parietal lobe and an area of restricted diffusion along the cortex of the right parietal lobe. Multiple small areas of restricted diffusion were noted within the right frontal lobe, bilateral parietal lobes, bilateral occipital lobes, and the bilateral cerebellum. 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 Also noted were enhancing nodules within the bilateral cerebellum, the largest measuring 7 x 4 mm, which were felt to be suggestive of metastatic disease. There was no associated edema. His anticoagulation was changed back to Lovenox, and his symptoms improved with conservative management. His medical history is otherwise significant for underlying COPD and dyslipidemia. He had smoked in the past, but he quit smoking in the . He had screening colonoscopy on 04/17/2012. The only finding was a hyperplastic polyp. INTERIM HISTORY: I had seen him for a follow-up visit on 03/04/2020. At that point his symptoms had not completely resolved, but they were definitely improving. I was able to review the MRI disc with 1 of the radiologist. One lesion in the lateral left cerebellar hemisphere did appear more prominent and it appeared more suspicious for a metastatic lesion. The other cerebellar lesions were smaller and were felt to be indeterminate. Restaging CT scans of the chest, abdomen, and pelvis on 03/08/2020 showed no change in the pleural calcification versus pleurodesis and there was unchanged sclerosis in the left hilum and left initial tuberosity. An aortocaval lymph node was noted to have decreased in size. However, there was further increase in the size of the left adrenal mass to 3.5 x 2.6 cm compared to 14 mm on the previous study. A 5 mm low-density focus in the right lobe of the liver appeared stable. His repeat brain MRI on 04/04/2020 showed several small enhancing lesions in the right and left cerebellum, superior right frontal and superior right parietal areas which appeared consistent with metastatic disease. There were evolving areas of infarction in the right parietal and right occipital areas with multiple other tiny areas of infarction in the right and left cerebellum, again consistent with embolic infarctions. With those findings, he underwent palliative whole brain radiation. As his CT scans had also shown evidence of what appeared to be isolated disease progression in the left adrenal gland, I had recommended that that site also be treated. He completed radiation on 04/29/2020, both sites to a total dose of 3000 cGy. During that time he had developed new stroke symptoms in the left arm/hand despite being on anticoagulation with Lovenox. At that point I did opt to check his anti-Xa level, and it actually was a little above therapeutic range. He continued Lovenox at the same dosage. His repeat MRI on 06/21/2020 reported a new lesion anteriorly in the frontal lobe region on the right side measuring 1.8 x 2.6 x 2.9 cm. There was a large amount of associated vasogenic edema with slight midline shift estimated at 2 to 3 mm. It was felt that the appearance was most consistent with a new metastatic process. The old lesion was noted to appear basically unchanged. Small focal areas seen previously in the left cerebellum appeared improved. The larger right parietal occipital lesion showed marked improvement. Restaging CT scans of the chest, abdomen, and pelvis on 06/22/2020 showed decreasing size of left adrenal mass with no evidence of new metastatic lesions. With those findings he was started on dexamethasone and he then had neurosurgery consultation with Dr. Nicole in [place]. At least initially, observation was recommended as it was thought that the MRI changes could possibly be due to radiation. I did have him continue dexamethasone, but with the dosage reduced to 2 mg daily. Repeat brain MRI on 07/21/2020 showed slight decrease in size of the large lesion near the sylvian fissure on the right side. Some component of post therapy calcification was suspected. There was still evidence of vasogenic edema involving both anterior and posterior lesions in the right parietal lobe. There were no enhancing lesions identified in the cerebellum, brainstem, temporal lobes, or in the left side of the brain. Overall the appearance was slightly improved. There was no indication of any worsening. At his follow-up visit on 07/25/2020 he continued to have fairly marginal performance status, but he was showing some improvement clinically. At that point his dexamethasone dosage was decreased to 1 mg daily, and it was subsequently tapered further to 0.5 mg daily. Repeat brain MRI on 08/18/2020 showed continued improvement in the appearance of the right frontal lobe with only a small focus of enhancing tissue in the more anterior lesion, at that point measuring 2.2 cm. There was still some associated edema. There was no enhancement associated with the more posterior lesion. A tiny focus of enhancement was noted in the left cerebellum, felt to be most likely vascular in nature and unchanged from previous studies. At his follow-up visit on 08/22/2020 he reported new pain in the lower back and pelvic area. Evaluation with MRI of the lumbar spine on 08/31/2020 showed multilevel degenerative changes. There was severe bilateral facet arthropathy at L4-L5, but there was no significant neural foraminal stenosis or significant spinal canal stenosis. There were no suspicious osseous lesions noted. 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 A bone lesion in the left ischium measuring 7 mm was indeterminate. There was unusual signal abnormality within the left iliac bone, also of uncertain significance. Edema was noted within the left iliac us musculature, within the bilateral abductor musculature, and within the gluteus musculature bilaterally, left worse than right. A CT pulmonary angiogram on 09/14/2020 showed no evidence of pulmonary embolism and no evidence of supraclavicular mass. A nodule within the medial margin of the right lung measured 16 x 11 mm. Areas of scattered atelectasis or scarring were noted in both lungs. Restaging PET/CT on 09/20/2020 showed pleural-based calcified activity bilaterally which was hypermetabolic and felt likely to be associated with previous bilateral pleurodesis. There was extremely intense activity in the low pelvic region, suspected to be in the rectum and very worrisome for rectal cancer. Numerous subcutaneous nodules involving both legs/thighs were also hypermetabolic and there were additional subcutaneous nodules associated with both femora. I have the opportunity to review both studies with the radiologist, and it did appear that the subcutaneous lesions are associated with sites of Lovenox injection. Due to the persistent uptake in the rectal region, he was referred to Dr. Ashton for colonoscopy. He apparently had some polyps removed, but there was no malignancy identified. In the meantime, as his performance status had continued to decline, I also recommended that he restart dexamethasone. At his follow-up visit on 11/01/2020 he was feeling considerably better, and he continued the dexamethasone at 2 mg daily. His repeat brain MRI on 01/04/2021 showed no new or enlarging enhancing lesions. Encephalomalacia in the posterior right frontal lobe appeared unchanged. His restaging CT scans showed no new changes in the chest area. The right adrenal gland appeared unchanged. There was increase in the lobulated, elongated area associated with the left adrenal gland measuring 5 x 1.9 x 2.1 cm. It appeared to have progressed from the prior study. Numerous small periaortic lymph nodes appeared slightly more prominent. The largest measured 1.1 cm. 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 He is seen for a scheduled visit. Subsequent to his last visit, he reported increased pain in the low back and right hip. He is scheduled to have further evaluation with MRI of the lumbar spine/pelvis next week. In the meantime, it has restricted his activity, in part because they have had to increase his morphine, and he has been sleeping more during the daytime. His ECOG score is 2. He still has good appetite. He has no fever or night sweats. He is had ongoing problems with his jaw, which is now bothering him on the left side. He had associated swelling in his neck and supraclavicular fossa, but that is showing improvement on empiric antibiotic therapy with doxycycline and Augmentin. He has just occasional cough. He is not having shortness of breath or chest pain. He has had some nausea with the antibiotic. He has no other GI or complaints. He does not complain of headache. He does have ongoing problems with balance. He has no numbness/paresthesia or other focal neurologic symptoms. Medications: Citalopram Hydrobromide 1 Tablet (of 20 mg) Oral daily, Desmopressin Acetate 1 spray(s) (of 1.5 mg/mL) Solution Nasal b.i.d., Lasix 1 Tablet (of 40 mg) Oral daily PRN, Lovenox 120 mg (of 300 mg/3ml) Injection daily, Magnesium Oxide 1 Tablet (of 400 mg) Capsule Oral daily, Morphine Sulfate ER 1 Tablet (of 30 mg) Tablet, controlled release Oral q 12 hours, oxygen 3 L Aerosol at bedtime, Pentoxifylline ER 1 Tablet (of 400 mg) Tablet, controlled release Oral b.i.d., Potassium 1 (99 mg) Tablet Oral PRN, Rosuvastatin Calcium 1 (10 mg) Tablet Oral daily, Sodium Chloride 1 Tablet Oral b.i.d., Zofran 1 (4 mg) Tablet Oral q 4 hours Allergies: No Known Allergies. Vital Signs: Performed on Mar 01, 2021 14:12 Height - 71.00 in Weight - 187 lbs (HIGH) BSA - 2.05 sq.m BMI - 26.08 Temperature - 97.7 F (LOW) Pulse - 66 /min Respiration - 18 /min BP - 124/80 mm(hg) O2 Sat - 95 % (LOW) Pain - 4 Fatigue - 6 Physical Examination: Constitutional - He appears somewhat weak generally, Eyes - Sclerae nonicteric. Conjunctivae clear, ENMT - No lesions noted in the oral cavity, Neck - There is soft tissue swelling in the supraclavicular area bilaterally, now much more prominent on the left. There is also swelling in the submandibular area on the left side. There is no associated erythema, and it is not warm to touch, Hematologic/Lymphatic - No cervical, clavicular, or axillary adenopathy, Respiratory - Lungs sound clear, Cardiovascular - Heart rhythm is regular. There is no murmur, gallop, or rub noted, Abdomen - Mildly distended. Liver and spleen are not enlarged. There is no abdominal mass or ascites noted and there is no inguinal adenopathy, Extremities - No edema. There is extensive purpura on both arms, Neurologic - No focal deficits noted. Lab/Imaging: Test performed on Mar 01, 2021 13:27 Sodium 138 mmol/L Potassium 4.6 mmol/L Chloride 101 mmol/L CO2 25 mmol/L Anion Gap 16.6 BUN 15 mg/dL Creatinine 0.7 mg/dL Cr Clearance (Est) 129.8900 mL/min eGFR 115.0 mL/min Glucose 109 mg/dL Osmolality - Calculated 287 mOsm/kg Calcium 9.1 mg/dL Protein, Total 6.6 g/dL Albumin 3.7 g/dL Globulin 2.9 g/dL Bilirubin, Total 0.3 mg/dL ALT (SGPT) 24 U/L AST (SGOT) 15 U/L Alkaline Phosphatase 80 IU/L WBC 4.6 10 3/uL RBC 4.21 10 6/uL HGB 13.1 g/dL HCT 40.7 % MCV 96.7 fl MCH 31.1 pg MCHC 32.2 g/dL RDW 12.8 % Platelet Count 239 10 3/cmm MPV 9.4 fL Neutrophils 3.62 10 3/uL Lymphocytes 0.6 10 3/uL Monocytes 0.3 10 3/uL Eosinophils 0.0 10 3/uL Basophils 0.0 10 3/uL Neutrophil % 79.3 % Lymphocyte % 13.1 % Monocyte % 6.8 % Eosinophil % 0.2 % Basophils % 0.2 % NRBC % 0 % Problem List: 1. Adenocarcinoma (bronchoalveolar carcinoma) involving the upper lobe of the right lung. His disease was stage IA (T1a, N0, M0) at initial diagnosis in 2012, but with subsequent progression to stage IV disease (M1b) with evidence of recurrence in the right lung and with multiple sites of metastatic bone involvement, including biopsy-proven metastatic adenocarcinoma involving the left ilium in April 2018. 2. 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 3. He developed severe pneumonitis while on immunotherapy with pembrolizumab. 4. COPD. 5. Hyperlipidemia. Problems Addressed with this Encounter and Plan: 1. Patient with adenocarcinoma (bronchoalveolar carcinoma) involving the upper lobe of the right lung. His disease was stage IA (T1a, N0, M0) at initial diagnosis in 2012. His initial treatment included VATS with a bi-segmentectomy of the right upper lobe. The procedure also included resection of right upper lobe ruptured bleb and pleurodesis. In 2017 he had progression to stage IV disease (M1b) with evidence of recurrence in the right lung and with multiple sites of metastatic bone involvement, including biopsy-proven metastatic adenocarcinoma involving the left ilium. On further pathologic analysis his tumor was found to be negative for EGFR mutations and for the ALK and ROS 1 gene rearrangements. A PD-L1 immunostain showed low expression at less than 5%. Given those findings, he began systemic therapy with carboplatin/pemetrexed chemotherapy in combination with pembrolizumab. He had a very good objective response, but treatment was subsequently discontinued when he developed severe treatment related pneumonitis. During subsequent follow-up he had evidence of further metastatic involvement in the brain and in the left adrenal gland. He was given palliative radiation to both sites, completed on 04/29/2020. His repeat brain MRI on 06/20/2020 showed a new lesion anteriorly in the frontal lobe region on the right side measuring 1.8 x 2.6 x 2.9 cm. There was a large amount of associated vasogenic edema, and it was felt that the appearance was most consistent with a new metastatic process. He had neurosurgery consultation with Dr. Nicole in [place], and it was recommended that he initially continue observation, as it was felt that the changes could possibly be due to radiation. His repeat MRI showed slight improvement. During followup there has been continued decline in his overall clinical status. His recent CT pulmonary angiogram and restaging PET/CT showed no evidence for new thromboembolism nor any evidence for new sites of metastatic disease. The PET/CT finding of most concern is activity noted in the rectal area. It is not a new finding, but the FDG activity has increased. He was found on colonoscopy to have tubular adenomas. There was no malignancy identified. His management has otherwise been symptomatic/supportive. With his follow-up visit on 09/30/2020 his performance status had continued to decline, and at that point I did opt to have him restart dexamethasone. He has since then been doing much better clinically, and on his follow-up MRI studies there has been no evidence of progression of metastatic disease in the brain and there has been no evidence of any new strokes. On his restaging CT scans last month there appeared to be progression of the left adrenal metastasis. There was no other obvious disease progression. Unfortunately, options for further management are very limited. He was not interested in pursuing surgical resection and with low probability of benefit with second line chemotherapy, he opted to continue with observation/symptomatic management. Recently he has had increasing pain in the lower back and right hip area. He is scheduled to have MRI of the lumbar spine and pelvis next week. He will have further evaluation as indicated. 2. With known metastatic involvement in the bone he had been on treatment with denosumab, administered at 3-month intervals. 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 He has since had had ongoing issues with the mandible, now on the left side. He is showing some improvement on empiric antibiotic coverage with doxycycline and Augmentin. I did recommend that he continue on the Augmentin, and that prescription is being refilled. 3. 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 The latter occurred while on anticoagulation with apixaban, and his anticoagulation was subsequently transitioned back to Lovenox. Thus far during follow-up there has been no documentation of any further thromboembolism. Signed By: Gil Castle M.D. <<Signature on File>>
== END 2021-03-01 12:23 | disposition home or self-care (01) ==
LOC: ONCMED 12:24
PROVIDERS: PCP Student in an Organized Health Care Education/Training Program; Visit Provider Internal Medicine Medical Oncology
DX: C34.11 Malignant neoplasm of upper lobe, right bronchus or lung (principal); C79.51 Secondary malignant neoplasm of bone; Z79.01 Long term (current) use of anticoagulants; Z79.899 Other long term (current) drug therapy
CPT/HCPCS: 36415; 80053; 85025; 99214

== ENCOUNTER 2021-04-25 15:37 | Outpatient (CLI) | payer MEDICARE, SELFPAY ==
--- NOTE | 2021-04-29 09:37 | ONC FU_ITS ---
Dr. Castle Patient Follow-Up Note Patient: Gabriel Yanez Unit #: [id number]: [id number] Dicatated By: Gil Castle M.D.Date of Visit:Apr 25, 2021 Onc Med Follow-up/Prog Note Chief Complaint: Lung cancer. 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 His disease was stage IA (T1a, N), M0) at initial diagnosis in 2012, but with subsequent progression to stage IV ( M1b). He had presented with a spontaneous pneumothorax and a right upper lobe nodule in 2012. On 02/28/2013 because of persistent air leak he required VATS with a bi-segmentectomy of the right upper lobe, resection of right upper lobe ruptured bleb, and pleurodesis. No thoracic lymphadenectomy was performed. His surgical pathology showed a 1.5 cm minimally invasive adenocarcinoma with negative margins. Clinically there was no distant or regional metastatic disease reported. Thus, his disease was stage IA (T1a, N0, M0), and he was followed expectantly. His surveillance CT of the chest on 09/01/2014 showed post operative changes in the right upper lobe with stable area of nodular thickening and scarring. He was first seen by Dr. Perez on 01/10/2015. His restaging CT of the chest on 03/22/2015 was unchanged. Further restaging CT on 09/06/2015 showed scarring, but no evidence of metastatic disease. He continued on observation/expectant management. His subsequent surveillance CT scans had shown stable findings until March 2018 when his repeat chest CT showed an increase in the size of a pleural-based densities in the upper right chest and in the medial mid right chest, suspicious for pleural-based metastatic disease. He had further evaluation with restaging PET/CT on 04/28/2018. There was noted to be pronounced activity throughout the right hemithorax, felt to be associated with inflammation in the pleura related to the pleurodesis or VATS. It was noted to have calcifications associated with it. A 2 cm diameter pleural based lesion was thought to possibly represent early tumor involvement. An abnormality in a left anterior rib was felt to be suspicious for rib fracture. A focus involving a posterior rib on the right side was thought be consistent with early bone metastasis or inflammation or fracture. There were lesions noted in the pelvic bone and right femur which were felt to be consistent with metastatic bone lesions. MRI of the brain on 05/06/2018 showed rather pronounced deep white matter disease felt to possibly represent a demyelinating process versus pronounced small vessel ischemic changes. It did not appear to be due to metastatic disease. Bone scan on 05/08/2018 showed multiple areas of abnormal uptake involving the left hemipelvis, right femur, multiple ribs, thoracic spine, and likely a small focus in the cervical spine. On 05/22/[address] directed needle biopsy of the lesion in the left ilium. Pathology was consistent with metastatic adenocarcinoma. The tumor cells were positive for CK7, TTF-1, and Napsin A. He was seen for a follow-up visit on 05/29/2018. At that point he did appear to be having significant bone pain associated with the metastatic involvement. As it did include weightbearing areas, I opted to refer him for palliative radiation. In the meantime, I also requested additional pathologic studies, including a PD-L1 immunostain, which showed low PD-L1 expression at 5%. In addition, the tumor cells were tested and found to be negative for EGFR mutations and for the ALK and ROS1 gene rearrangements. He was seen here on 07/02/2018 to initiate chemotherapy with pembrolizumab in combination with carboplatin and pemetrexed. He had multiple new complaints including low-grade fever, increased shortness of breath, and new pain and swelling in both legs. He was found to have extensive deep vein thrombosis in both legs and very extensive pulmonary emboli bilaterally. He began anticoagulation with Lovenox, and he was observed overnight in the hospital. He then returned on 07/08/2018 to begin cycle 1 of carboplatin/pemetrexed in combination with pembrolizumab. He also started denosumab injections for the metastatic bone involvement. He tolerated the chemotherapy well, and he was able to continue with cycle 2 of carboplatin/Alimta/pembrolizumab on 07/29/2018. During that time his anticoagulation was transitioned to a apixaban. He continued to tolerate the chemotherapy with acceptable toxicity. He proceeded with cycle 3 on 08/19/2018 and was cycle 4 on 09/08/2018. On 09/19/2018 he was admitted to [facility] with shortness of breath and hypoxia. His clinical evaluation was consistent with pneumonitis associated with his immunotherapy. He was given high-dose steroid therapy. His clinical course was complicated by left pneumothorax with persistent air leak. He was eventually discharged home on 10/08/2018 with the chest tube in place. He is on 30 mg of prednisone daily. Just prior to discharge, he also was found to have Clostridium difficile colitis, for which he began treatment with oral vancomycin. During follow-up he continued to have severe shortness of breath and limited activity tolerance. He attempted to remove his chest to begin last week, but it had to be reinserted within a couple of hours. His restaging CT scans on 11/13/2018 showed no evidence of recurrent pulmonary embolus. There was a persistent small residual filling defect in the posterior basal segment right lower lobe pulmonary artery branch. There was improvement in the previously noted right upper, middle, and lower lobe pneumonia compared to the 08/27/2018 study. There was evidence of left hemithorax talc pleurodesis and placement of lower third left hemithorax anterior pleural space pigtail catheter. A right hilar lymph node appears stable. There is no evidence of other significant lymphadenopathy. A T5 vertebral body metastatic lesion appeared stable. The abdomen and pelvis shows stable appearance of a mixed density metastatic lesion in the left ilium. There was subcutaneous soft tissue edema noted in the left flank. There were no other significant findings. I had seen him for a follow-up visit on 11/13/2018. He was showing some improvement in his clinical status. At that point he continued monthly denosumab injections for the metastatic bone involvement, but in the absence of any evidence of disease progression, I opted to keep his chemotherapy on hold. In the meantime, he continued follow-up with Dr. Orlando and he was started on diuretic therapy for cor pulmonale. He continued to have a high oxygen requirement. Restaging CT scans from 06/02/2019 showed continued pleural scarring and thickening with volume loss on the right side. There was also pronounced pleural scarring and thickening involving the left lung, and there was thickening of the soft tissues between the ribs and the tip of the scapula on the left side that appeared very worrisome for tumor involvement in the soft tissues. There was pronounced soft tissue thickening and abnormal enhancement of the tissue extending along the left lateral chest wall, possibly related to the previous procedures. Metastatic disease, though, was not excluded. There appear to be a couple of small cysts in the liver. There was some inhomogeneity involving the right finger and the left iliac wing, appearance of which was not significantly changed from the previous PET/CT. With those findings, he continued denosumab injections for the metastatic bone involvement, but he otherwise continued observation/symptomatic management for the lung cancer. Restaging PET/CT on 09/09/2019 showed pronounced increased activity in the pleural spaces of both hemithoraces, unclear as to whether it was due post therapeutic changes or to new spread of tumor. A focus of activity in the rectum was noted to be fairly intense, but unchanged compared to the February study. The bony metastases were noted to have markedly improved. He continued treatment with denosumab at a 3-month interval. A restaging PET/CT on 12/15/2019 showed an area of increased metabolic activity along the left lateral chest wall just inferior to the scapula, very similar in appearance to the prior study. Bilateral talc pleurodesis changes were again noted, also similar to the prior study. A new FDG avid mass was noted within the left lateral limb of the adrenal gland measuring 1.5 cm, SUV 4.9, worrisome for metastatic disease. Also noted was a small lymph node within the aortocaval region in the mid abdomen at the L3 level with mild FDG activity, SUV 4.8, also suspicious for possible metastasis. Robust activity was again noted within the region of the lower rectum. As of his follow-up visit on 12/22/2019 he appeared stable clinically, and we opted to continue with observation/expectant management. At that point I had transitioned his anticoagulation from Lovenox to apixaban. On 02/28/2020 he had presented to the [facility] emergency room with acute onset of weakness in the left arm and hand. He had some transient visual impairment and he also had some stumbling, but the main problem was with his left hand, particularly his fine motor skills. His brain MRI with and without contrast showed restricted diffusion along the central sulcus involving the frontal and parietal lobe and an area of restricted diffusion along the cortex of the right parietal lobe. Multiple small areas of restricted diffusion were noted within the right frontal lobe, bilateral parietal lobes, bilateral occipital lobes, and the bilateral cerebellum. 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 Also noted were enhancing nodules within the bilateral cerebellum, the largest measuring 7 x 4 mm, which were felt to be suggestive of metastatic disease. There was no associated edema. His anticoagulation was changed back to Lovenox, and his symptoms improved with conservative management. His medical history is otherwise significant for underlying COPD and dyslipidemia. He had smoked in the past, but he quit smoking in the . He had screening colonoscopy on 04/17/2012. The only finding was a hyperplastic polyp. INTERIM HISTORY: I had seen him for a follow-up visit on 03/04/2020. At that point his symptoms had not completely resolved, but they were definitely improving. I was able to review the MRI disc with 1 of the radiologist. One lesion in the lateral left cerebellar hemisphere did appear more prominent and it appeared more suspicious for a metastatic lesion. The other cerebellar lesions were smaller and were felt to be indeterminate. Restaging CT scans of the chest, abdomen, and pelvis on 03/08/2020 showed no change in the pleural calcification versus pleurodesis and there was unchanged sclerosis in the left hilum and left initial tuberosity. An aortocaval lymph node was noted to have decreased in size. However, there was further increase in the size of the left adrenal mass to 3.5 x 2.6 cm compared to 14 mm on the previous study. A 5 mm low-density focus in the right lobe of the liver appeared stable. His repeat brain MRI on 04/04/2020 showed several small enhancing lesions in the right and left cerebellum, superior right frontal and superior right parietal areas which appeared consistent with metastatic disease. There were evolving areas of infarction in the right parietal and right occipital areas with multiple other tiny areas of infarction in the right and left cerebellum, again consistent with embolic infarctions. With those findings, he underwent palliative whole brain radiation. As his CT scans had also shown evidence of what appeared to be isolated disease progression in the left adrenal gland, I had recommended that that site also be treated. He completed radiation on 04/29/2020, both sites to a total dose of 3000 cGy. During that time he had developed new stroke symptoms in the left arm/hand despite being on anticoagulation with Lovenox. At that point I did opt to check his anti-Xa level, and it actually was a little above therapeutic range. He continued Lovenox at the same dosage. His repeat MRI on 06/21/2020 reported a new lesion anteriorly in the frontal lobe region on the right side measuring 1.8 x 2.6 x 2.9 cm. There was a large amount of associated vasogenic edema with slight midline shift estimated at 2 to 3 mm. It was felt that the appearance was most consistent with a new metastatic process. The old lesion was noted to appear basically unchanged. Small focal areas seen previously in the left cerebellum appeared improved. The larger right parietal occipital lesion showed marked improvement. Restaging CT scans of the chest, abdomen, and pelvis on 06/22/2020 showed decreasing size of left adrenal mass with no evidence of new metastatic lesions. With those findings he was started on dexamethasone and he then had neurosurgery consultation with Dr. Nicole in [place]. At least initially, observation was recommended as it was thought that the MRI changes could possibly be due to radiation. I did have him continue dexamethasone, but with the dosage reduced to 2 mg daily. Repeat brain MRI on 07/21/2020 showed slight decrease in size of the large lesion near the sylvian fissure on the right side. Some component of post therapy calcification was suspected. There was still evidence of vasogenic edema involving both anterior and posterior lesions in the right parietal lobe. There were no enhancing lesions identified in the cerebellum, brainstem, temporal lobes, or in the left side of the brain. Overall the appearance was slightly improved. There was no indication of any worsening. At his follow-up visit on 07/25/2020 he continued to have fairly marginal performance status, but he was showing some improvement clinically. At that point his dexamethasone dosage was decreased to 1 mg daily, and it was subsequently tapered further to 0.5 mg daily. Repeat brain MRI on 08/18/2020 showed continued improvement in the appearance of the right frontal lobe with only a small focus of enhancing tissue in the more anterior lesion, at that point measuring 2.2 cm. There was still some associated edema. There was no enhancement associated with the more posterior lesion. A tiny focus of enhancement was noted in the left cerebellum, felt to be most likely vascular in nature and unchanged from previous studies. At his follow-up visit on 08/22/2020 he reported new pain in the lower back and pelvic area. Evaluation with MRI of the lumbar spine on 08/31/2020 showed multilevel degenerative changes. There was severe bilateral facet arthropathy at L4-L5, but there was no significant neural foraminal stenosis or significant spinal canal stenosis. There were no suspicious osseous lesions noted. 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 A bone lesion in the left ischium measuring 7 mm was indeterminate. There was unusual signal abnormality within the left iliac bone, also of uncertain significance. Edema was noted within the left iliac us musculature, within the bilateral abductor musculature, and within the gluteus musculature bilaterally, left worse than right. A CT pulmonary angiogram on 09/14/2020 showed no evidence of pulmonary embolism and no evidence of supraclavicular mass. A nodule within the medial margin of the right lung measured 16 x 11 mm. Areas of scattered atelectasis or scarring were noted in both lungs. Restaging PET/CT on 09/20/2020 showed pleural-based calcified activity bilaterally which was hypermetabolic and felt likely to be associated with previous bilateral pleurodesis. There was extremely intense activity in the low pelvic region, suspected to be in the rectum and very worrisome for rectal cancer. Numerous subcutaneous nodules involving both legs/thighs were also hypermetabolic and there were additional subcutaneous nodules associated with both femora. I have the opportunity to review both studies with the radiologist, and it did appear that the subcutaneous lesions are associated with sites of Lovenox injection. Due to the persistent uptake in the rectal region, he was referred to Dr. Ashton for colonoscopy. He apparently had some polyps removed, but there was no malignancy identified. In the meantime, as his performance status had continued to decline, I also recommended that he restart dexamethasone. At his follow-up visit on 11/01/2020 he was feeling considerably better, and he continued the dexamethasone at 2 mg daily. His repeat brain MRI on 01/04/2021 showed no new or enlarging enhancing lesions. Encephalomalacia in the posterior right frontal lobe appeared unchanged. His restaging CT scans showed no new changes in the chest area. The right adrenal gland appeared unchanged. There was increase in the lobulated, elongated area associated with the left adrenal gland measuring 5 x 1.9 x 2.1 cm. It appeared to have progressed from the prior study. Numerous small periaortic lymph nodes appeared slightly more prominent. The largest measured 1.1 cm. 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 At his follow-up visit on 03/01/2021 he reported increased pain in the low back and right hip. MRI of the lumbar spine on 03/07/2021 showed degenerative changes without evidence of canal stenosis or definite nerve root impingement and no evidence of metastatic disease. MRI of the pelvis showed 2 new nonspecific foci of hyperintense sense of the in the proximal left femur, metastatic disease not excluded. Signal alteration within the posterior left ilium appeared unchanged. 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 There were scattered muscle edema noted at the left hip and around the right iliac us muscle. His repeat brain MRI on 04/10/2021 showed stable findings with no progression of metastatic disease and no evidence of new infarcts. Bone scan on 04/10/2021 showed new increased activity within the lower thoracic spine, possibly indicating metastatic disease. Decreased abnormal activity was noted within the left ilium and calvarium. He is seen for a follow-up visit. He has not been feeling good. There has been further decline in his energy/activity tolerance. He is now almost completely sedentary. ECOG score is 3. Appetite is not good. He does not have fever or night sweats. His breathing is still okay. Bowel and bladder function remain adequate. His main complaint is that he has continued to have worsening pain, but it is mainly in the low back area. He does not complain of headache, and he has no focal neurologic symptoms. Medications: Citalopram Hydrobromide 1 Tablet (of 20 mg) Oral daily, Desmopressin Acetate 1 spray(s) (of 1.5 mg/mL) Solution Nasal b.i.d., Dexamethasone 1 Tablet (of 4 mg) Oral daily, E-400 1 Tablet (of 400 Unit(s)) Capsule Oral daily, Famotidine 1 Tablet (of 20 mg) Oral daily, Lasix 1 Tablet (of 40 mg) Oral daily PRN, Morphine Sulfate 1 Tablet (of 15 mg) Oral q 2 to 4 hours PRN, Morphine Sulfate ER 1 Tablet (of 45 mg) Tablet, controlled release Oral at bedtime, Morphine Sulfate ER 1 Tablet (of 30 mg) Tablet, controlled release Oral every am, oxygen 3 L Aerosol at bedtime, Pentoxifylline ER 1 Tablet (of 400 mg) Tablet, controlled release Oral b.i.d., Potassium 1 (99 mg) Tablet Oral PRN, Probiotic Acidophilus 1 Tablet Capsule Oral daily, Rosuvastatin Calcium 1 (10 mg) Tablet Oral daily, Sennosides-Docusate Sodium 1 Tablet (of 8.6-50 mg) Oral daily Allergies: No Known Allergies. Vital Signs: Performed on Apr 25, 2021 16:13 Height - 71.00 in Weight - 187 lbs BSA - 2.05 sq.m BMI - 26.08 Temperature - 96.8 F (LOW) Pulse - 78 /min Respiration - 18 /min BP - 128/85 mm(hg) O2 Sat - 96 % Pain - 5 Fatigue - 8 Physical Examination: Constitutional - He appears generally weak, Eyes - Sclerae nonicteric. Conjunctivae clear, ENMT - No lesions noted in the oral cavity, Hematologic/Lymphatic - No cervical, clavicular, or axillary adenopathy, Respiratory - Lungs sound clear, Cardiovascular - Heart rhythm is regular. There is no murmur, gallop, or rub noted, Abdomen - Mildly distended. Liver and spleen are not enlarged. There is no abdominal mass or ascites noted and there is no inguinal adenopathy, Extremities - No edema. There is extensive purpura on both arms, Neurologic - No focal deficits noted. Lab/Imaging: Test performed on Apr 19, 2021 10:33 C-Reactive Protein (mg/L) 17.00 mg/L Test performed on Apr 10, 2021 11:05 Glucose 109 mg/dL BUN 23 mg/dL Creatinine .82 mg/dL Cr Clearance (Est) 110.88 mL/min BUN/Creatinine Ratio 28.0 Absolute Value Sodium 139 mmol/L Potassium 4.2 mmol/L Chloride 107 mmol/L CO2 28.3 mmol/L Calcium 9.1 mg/dL Protein, Total 6.7 g/dL Albumin 3.0 g/dL Globulin 3.7 g/dL A/G Ratio 0.8 Absolute Value Bilirubin, Total .8 mg/dL Alkaline Phosphatase 93 International Units/L AST (SGOT) 37 International Units/L ALT (SGPT) 83 International Units/L WBC 7.6 10^9/L RBC 4.59 10^12/L HGB 14.0 g/dL HCT 43.6 % MCV 95.0 fl MCH 30.5 pg MCHC 32.1 g/dL RDW 13.3 % Platelet Count 169 10^9/L MPV 9.4 fL Neutrophils (Gran) 6.00 10^9/L Lymphocytes 0.8664 10^9/L Monocytes 0.6612 10^9/L Eosinophils 0.0228 10^9/L Basophils 0.0228 10^9/L NRBCs .00 /100 WBC Problem List: 1. Adenocarcinoma (bronchoalveolar carcinoma) involving the upper lobe of the right lung. His disease was stage IA (T1a, N0, M0) at initial diagnosis in 2012, but with subsequent progression to stage IV disease (M1b) with evidence of recurrence in the right lung and with multiple sites of metastatic bone involvement, including biopsy-proven metastatic adenocarcinoma involving the left ilium in April 2018. 2. 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 3. He developed severe pneumonitis while on immunotherapy with pembrolizumab. 4. COPD. 5. Hyperlipidemia. Problems Addressed with this Encounter and Plan: 1. Patient with adenocarcinoma (bronchoalveolar carcinoma) involving the upper lobe of the right lung. His disease was stage IA (T1a, N0, M0) at initial diagnosis in 2012. His initial treatment included VATS with a bi-segmentectomy of the right upper lobe. The procedure also included resection of right upper lobe ruptured bleb and pleurodesis. In 2018 he had progression to stage IV disease (M1b) with evidence of recurrence in the right lung and with multiple sites of metastatic bone involvement, including biopsy-proven metastatic adenocarcinoma involving the left ilium. On further pathologic analysis his tumor was found to be negative for EGFR mutations and for the ALK and ROS 1 gene rearrangements. A PD-L1 immunostain showed low expression at less than 5%. Given those findings, he began systemic therapy with carboplatin/pemetrexed chemotherapy in combination with pembrolizumab. He had a very good objective response, but treatment was subsequently discontinued when he developed severe treatment related pneumonitis. During subsequent follow-up he had evidence of further metastatic involvement in the brain and in the left adrenal gland. He was given palliative radiation to both sites, completed on 04/29/2020. His repeat brain MRI on 06/20/2020 showed a new lesion anteriorly in the frontal lobe region on the right side measuring 1.8 x 2.6 x 2.9 cm. There was a large amount of associated vasogenic edema, and it was felt that the appearance was most consistent with a new metastatic process. He had neurosurgery consultation with Dr. Nicole in [place], and it was recommended that he initially continue observation, as it was felt that the changes could possibly be due to radiation. His repeat MRI showed slight improvement. During followup there has been continued decline in his overall clinical status. His recent CT pulmonary angiogram and restaging PET/CT showed no evidence for new thromboembolism nor any evidence for new sites of metastatic disease. The PET/CT finding of most concern is activity noted in the rectal area. It is not a new finding, but the FDG activity has increased. He was found on colonoscopy to have tubular adenomas. There was no malignancy identified. His management has otherwise been symptomatic/supportive. With his follow-up visit on 09/30/2020 his performance status had continued to decline, and at that point I did opt to have him restart dexamethasone. He has since then been doing much better clinically, and on his follow-up MRI studies there has been no evidence of progression of metastatic disease in the brain and there has been no evidence of any new strokes. On his restaging CT scans last month there appeared to be progression of the left adrenal metastasis. There was no other obvious disease progression. Unfortunately, options for further management are very limited. He was not interested in pursuing surgical resection and with low probability of benefit with second line chemotherapy, he opted to continue with observation/symptomatic management. Over the past several months he has had gradually worsening pain, mainly in the low back area. 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 None of these findings appear to correlate particularly with his pain, and management will remain symptomatic. Overall, his general condition has been showing significant decline, his prognosis does appear to be poor. I discussed the possibility of increasing his dexamethasone on a trial basis. His medications otherwise will be continued as before. I will tentatively plan a follow-up visit in 1 month. 2. With known metastatic involvement in the bone he had been on treatment with denosumab, administered at 3-month intervals. 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 3. 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 The latter occurred while on anticoagulation with apixaban, and his anticoagulation was subsequently transitioned back to Lovenox. Thus far during follow-up there has been no documentation of any further thromboembolism. Signed By: Gil Castle M.D. <<Signature on File>>
== END 2021-04-25 15:38 | disposition home or self-care (01) ==
LOC: ONCMED 15:39
PROVIDERS: PCP Student in an Organized Health Care Education/Training Program; Visit Provider Internal Medicine Medical Oncology
DX: C34.11 Malignant neoplasm of upper lobe, right bronchus or lung (principal); C79.51 Secondary malignant neoplasm of bone; I26.99 Other pulmonary embolism without acute cor pulmonale; I63.89 Other cerebral infarction; J18.9 Pneumonia, unspecified organism; J44.9 Chronic obstructive pulmonary disease, unspecified; E78.5 Hyperlipidemia, unspecified; Z79.899 Other long term (current) drug therapy
CPT/HCPCS: G0463